=== PATIENT | male | born 1955 | race Caucasian/White ===

== ENCOUNTER → 2022-07-19 14:53 | Outpatient (CLI) | payer MEDICARE, SELFPAY ==
--- NOTE | 2022-07-19 15:19 | MR_ITS ---
PROCEDURE INFORMATION: Exam: MR Head Without and With Contrast Exam date and time: 07/19/2022 3:42 PM Age: 66 years old Clinical indication: Other: Tremors in arm; Additional info: Abn cranial nerve exam TECHNIQUE: Imaging protocol: Magnetic resonance imaging of the head without and with contrast. Contrast material: PROHANCE; Contrast volume: 20 ml; Contrast route: IV; COMPARISON: No relevant prior studies available. FINDINGS: Brain: No acute parenchymal hemorrhage acute infarct or mass lesion. Only seen on the FLAIR coronal (series 8, image 20), there is a 2 mm thick focal subdural hyperintensity without definitive correlate on other sequences. There are scattered T2 hyperintensities in the periventricular and subcortical white matter. The appearance is nonspecific, but most likely represents chronic small vessel disease in a person of this age . Cerebral ventricles: The ventricles, sulci and cisterns are normal in size and configuration. No hydrocephalus or midline structure shift Pituitary gland and sella: Sellar/parasellar are maintained. Bones/joints: Unremarkable. Paranasal sinuses: Normal as visualized. No acute sinusitis. Mastoid air cells: Normal as visualized. No mastoid effusion. Orbital cavities: Bilateral lens implants noted. Orbits are otherwise unremarkable. Vasculature: Flow voids of the major vascular structures are grossly intact. Soft tissues: Unremarkable. Other findings: Motion artifact does moderately limit the sensitivity of this examination. IMPRESSION: 1. Motion degraded exam. 2. Only seen on the FLAIR coronal there is a 2 mm thick subdural hyperintensity without definitive correlate in other sequences likely sequela of prior subdural hematoma/hygroma or infection. Fininding could also be spurios from motion artifact 3. No abnormal parenchymal or meningeal enhancement.
[2022-07-19 15:41] LABS: Basophils # 0.1 K/mm3 (0-0.2); Basophils % 1.1 % (0.1-2.0); Eosinophils # 0.6 K/mm3 (0.0-0.4); Eosinophils % 7.6 % (0.1-12.0); Hematocrit 48.3 % (42.0-52.0); Hemoglobin 15.5 g/dL (14.1-18.0); Lymphocytes % 27.3 % (10-50); Mean Corpuscular HGB Conc 32.2 g/dL (31.8-35.4); Mean Corpuscular Hemoglobin 30.2 pg (27.0-31.2); Mean Corpuscular Volume 93.9 fl (80-94); Mean Platelet Volume 8.2 fl (7.4-10.4); Monocytes # 0.5 K/mm3 (0.1-1.0); Monocytes % 6.7 % (1.7-9.3); Neutrophils # 4.3 K/mm3 (1.8-7.8); Neutrophils % 57.3 % (37.0-80.0); Platelet Count 267 K/mm3 (142-424); Red Blood Count 5.14 M/mm3 (4.60-6.20); Red Cell Distribution Width 13.2 % (11.5-17.5); White Blood Count 7.4 K/mm3 (4.8-10.8)
[2022-07-19 16:08] LABS: Chloride 94 mmol/L (98-107)
[2022-07-19 16:09] LABS: Potassium 4.1 mmoL/L (3.5-5.1); Sodium 140 mmol/L (136-145)
[2022-07-19 16:11] LABS: Alanine Aminotransferase 24 U/L (12-78); Aspartate Amino Transferase 29 U/L (17-59); Blood Urea Nitrogen 12 mg/dl (9-20); Estimated Glomerular Filt Rate 97 ml/min (>60); GFR (African American) 117 ML/MIN (>60)
[2022-07-19 16:12] LABS: Albumin Level 3.8 g/dl (3.5-5.0); Albumin/Globulin Ratio 1.6 (1.1-1.8); Alkaline Phosphatase 104 U/L (38-126); Anion Gap 12.1 mEq/L (5-15); Calcium 9.4 mg/dl (8.4-10.2); Carbon Dioxide 38 mmol/L (22.0-30.0); Globulin 2.4 g/dL (1.3-3.2); Glucose 145 mg/dl (74-100); Total Protein,Serum 6.2 g/dl (6.3-8.2)
[2022-07-19 16:14] LABS: Bilirubin,Total < 0.1 mg/dl (0.2-1.3)
[2022-07-19 17:17] LABS: Thyroid Stimulating Hormone 1.13 uIU/mL (0.465-4.68)
[2022-07-19 17:53] LABS: Vitamin B12 561 pg/mL (239-931)
== END ==
PROVIDERS: PCP Family Medicine; Visit Provider Nurse Practitioner Family
DX: H21.563 Pupillary abnormality, bilateral (principal); H55.89 Other irregular eye movements; J44.9 Chronic obstructive pulmonary disease, unspecified; R03.0 Elevated blood-pressure reading, without diagnosis of hypertension; R25.1 Tremor, unspecified; Z72.0 Tobacco use
CPT/HCPCS: 36415; 70553; 80053; 82607; 82746; 84443; 85025; A9576

== ENCOUNTER → 2022-08-07 12:36 | Outpatient (CLI) | payer MEDICARE, SELFPAY | PROVIDERS: PCP Family Medicine; Visit Provider Nurse Practitioner Family | DX: J44.9 Chronic obstructive pulmonary disease, unspecified (principal); R03.0 Elevated blood-pressure reading, without diagnosis of hypertension; Z72.0 Tobacco use | CPT/HCPCS: 94762 ==

== ENCOUNTER → 2022-08-08 08:21 | Outpatient (CLI) | payer MEDICARE, SELFPAY ==
--- NOTE | 2022-08-08 08:25 | XR_ITS ---
FINAL REPORT CLINICAL HISTORY: copd, wheezing, shortness of breath FINDINGS: TWO-VIEW CHEST Two views of the chest were obtained. The heart size and pulmonary vascularity are within normal limits. The mediastinum is normal. There are changes of emphysema. There is no pneumothorax. The bony thorax is intact. IMPRESSION: Emphysema. No acute process. Reviewed, Interpreted and Dictated by Daniel Castrejon MD Transcribed by Alma Delia Yost Authenticated and [facility]
== END ==
LOC: RAD 08:22
PROVIDERS: PCP Family Medicine; Visit Provider Nurse Practitioner Family
DX: J44.9 Chronic obstructive pulmonary disease, unspecified (principal); R06.02 Shortness of breath; R06.2 Wheezing; R09.02 Hypoxemia; R90.89 Other abnormal findings on diagnostic imaging of central nervous system
CPT/HCPCS: 71046

== ENCOUNTER → 2022-08-11 14:46 | Outpatient (CLI) | payer MEDICARE, SELFPAY | PROVIDERS: PCP Family Medicine; Visit Provider Nurse Practitioner Family | DX: R06.02 Shortness of breath (principal); J44.9 Chronic obstructive pulmonary disease, unspecified; R06.2 Wheezing; R90.89 Other abnormal findings on diagnostic imaging of central nervous system ==

== ENCOUNTER → 2022-08-16 07:46 | Outpatient (CLI) | payer MEDICARE, SELFPAY ==
--- NOTE | 2022-08-16 10:20 | RESP.PFTSS ---
PATIENT UNABLE TO DO PULMONARY FUNCTION TEST. PATIENT ATTEMPTED FVC AND SVC AND COULD NOT MEET CRITERIA TO COMPLETE EACH TEST.
== END ==
PROVIDERS: PCP Family Medicine; Visit Provider Nurse Practitioner Family
DX: R06.02 Shortness of breath (principal); R06.2 Wheezing; R90.89 Other abnormal findings on diagnostic imaging of central nervous system; R09.02 Hypoxemia; J44.9 Chronic obstructive pulmonary disease, unspecified
CPT/HCPCS: 94010; 94618

== ENCOUNTER → 2022-08-23 10:06 | Outpatient (CLI) | payer MEDICARE, SELFPAY ==
[2022-08-28 18:16] LABS: Alpha-1-Antitrypsin 154 mg/dL (101-187)
== END ==
PROVIDERS: PCP Family Medicine; Visit Provider Internal Medicine Pulmonary Disease
DX: J44.9 Chronic obstructive pulmonary disease, unspecified (principal)
CPT/HCPCS: 36415; 82103; 82104

== ENCOUNTER → 2022-08-29 10:19 | Outpatient (CLI) | payer MEDICARE, SELFPAY ==
--- NOTE | 2022-08-29 10:19 | CT_ITS ---
FINAL REPORT TECHNIQUE: Multiple axial CT sections were performed from the foramen magnum to the vertex. Coronal reformatted images were also obtained. Precontrast and postcontrast injection images were obtained. This study was performed with technique to keep radiation doses as low as reasonably achievable, (ALARA). Individualized dose reduction techniques using automated exposure control or adjustment of mA and/or kV according to the patient size were employed. CLINICAL HISTORY: abn brain mri COMPARISON: MRI report dated 07/19/2022 FINDINGS: The ventricles are normal in size. There is no evidence of hemorrhage. No masses are identified. No extra-axial fluid collection is seen. There is mucosal thickening in multiple sinuses. No osseous abnormality is seen on the bone window images. Postcontrast images demonstrate no abnormal enhancement. IMPRESSION: No acute intracranial abnormality. Mucosal thickening in multiple sinuses. Reviewed, Interpreted and Dictated by John Carr III, MD Transcribed by Alma Delia Yost Authenticated and [facility]
[2022-08-29 10:46] LABS: Blood Urea Nitrogen 13 mg/dl (9-20); Estimated Glomerular Filt Rate 97 ml/min (>60); GFR (African American) 117 ML/MIN (>60)
== END ==
LOC: RAD 10:19
PROVIDERS: PCP Family Medicine; Visit Provider Nurse Practitioner Family
DX: H21.563 Pupillary abnormality, bilateral (principal); H55.89 Other irregular eye movements; R90.89 Other abnormal findings on diagnostic imaging of central nervous system
CPT/HCPCS: 36415; 70470; 82565; 84520; Q9967

== ENCOUNTER → 2022-10-19 14:17 | Outpatient (CLI) | payer MEDICARE, SELFPAY ==
--- NOTE | 2022-10-19 14:17 | CT_ITS ---
FINAL REPORT TECHNIQUE: Axial images were obtained from the lung apex to the mid abdomen by computed tomography. This study was performed with techniques to keep radiation doses as low as reasonably achievable (ALARA). Individualized dose reduction techniques using automated exposure control or adjustment of mA and/or kV according to the patient's size were employed. CLINICAL HISTORY: lung cancer screening current smoker 1/2ppd x25 years FINDINGS: CHEST CT LOW DOSE CTDI vol (mGy): 2.90 DLP (mGy-cm): 101.86 There is no axillary adenopathy. There are a few small scattered mediastinal lymph nodes. The heart is normal in size. There is no pericardial or pleural effusion. Lung window images demonstrate a nodular infiltrate at the right base and posterior right middle lobe. The left lung is clear. Limited images of the upper abdomen are unremarkable. IMPRESSION: Probable acute pneumonia in the right lower lobe. Lung RADS category 0. Recommend 1-3 month follow-up low-dose chest CT. Reviewed, Interpreted and Dictated by Main Rincon MD Transcribed by Latasha Helms Authenticated and [facility]
== END ==
PROVIDERS: PCP Family Medicine; Visit Provider Internal Medicine Pulmonary Disease
DX: Z87.891 Personal history of nicotine dependence; Z12.2 Encounter for screening for malignant neoplasm of respiratory organs
CPT/HCPCS: 71271

== ENCOUNTER → 2022-10-30 09:37 | Outpatient (CLI) | payer MEDICARE, SELFPAY | PROVIDERS: PCP Family Medicine; Visit Provider Internal Medicine Pulmonary Disease | DX: R06.09 Other forms of dyspnea (principal); R05.1 Acute cough; R06.2 Wheezing; R09.89 Other specified symptoms and signs involving the circulatory and respiratory systems | CPT/HCPCS: 87070; 87116; 87186; 87205; 87206 ==

== ENCOUNTER → 2022-11-21 20:02 | Outpatient (CLI) | payer MEDICARE, SELFPAY | PROVIDERS: PCP Family Medicine; Visit Provider Nurse Practitioner Family | DX: G47.33 Obstructive sleep apnea (adult) (pediatric) (principal); R09.02 Hypoxemia; J44.9 Chronic obstructive pulmonary disease, unspecified | CPT/HCPCS: 95810 ==

== ENCOUNTER → 2022-12-06 12:27 | Outpatient (CLI) | payer MEDICARE, SELFPAY ==
--- NOTE | 2022-12-06 12:27 | FL_ITS ---
FINAL REPORT CLINICAL HISTORY: dysphagia ft: 1:55 FINDINGS: MODIFIED BARIUM SWALLOW History: Dysphagia. FINDINGS: Fluoroscopy was provided for the speech pathologist to evaluate the swallowing mechanism. The patient was given several different consistencies of barium while the swallow was visualized fluoroscopically. The report of the speech pathologist should be consulted prior to making dietary decisions. FLUOROSCOPY TIME: 1 minute 55 seconds. IMPRESSION: Modified barium swallow under fluoroscopic guidance. Please see the report of the speech pathologist for more detail. Films reviewed , interpreted and dictated by Dr. Neva Lynn. Transcribed by Brenton Chao PA-C. Reviewed, Interpreted and Dictated by Neva Lynn MD Transcribed by BERNA Botello Authenticated and [facility]
--- NOTE | 2022-12-06 12:27 | CT_ITS ---
FINAL REPORT TECHNIQUE: Thin section axial images were obtained from the lung apices through the upper abdomen without contrast. This study was performed with techniques to keep radiation doses as low as reasonably achievable (ALARA). Individualized dose reduction techniques using automated exposure control or adjustment of mA and/or kV according to the patient's size were employed. CLINICAL HISTORY: RLLpneumonia 8-week follow-up, November 2022 COMPARISON: 10/19/2022 FINDINGS: There is no mediastinal, hilar, or axillary lymphadenopathy. There is no pleural or pericardial effusion. There are changes of emphysema. There has been interval improvement in the right middle lobe and right lower lobe bronchopneumonia however not resolved. The lingular reticular nodular opacities have also improved but not completely resolved. Limited images of the upper abdomen reveal gallstones. There is no acute osseous abnormality. IMPRESSION: Improved but not resolved right greater the left bronchopneumonia. Recommend additional follow-up in 3 months to ensure stability. Reviewed, Interpreted and Dictated by Neva Lynn MD Transcribed by Latasha Helms Authenticated and [facility]
--- NOTE | 2022-12-06 14:35 | HMH.SLMBS2 ---
Speech & Language Evaluation Speech/Language Mod Barium Swallow Start: 12/06/22 13:25 Freq: once Status: Complete Protocol: Document 12/06/22 13:25 SVETA (Rec: 12/06/22 14:35 SVETA [id number]) General Information General Current Food Consistency Regular,Thin Liquids Dentition Poor Dentition Oxygen Status Room Air Facial Symmetry Symmetrical Patient Orientation Person,Place,Time,Situation Ability to Follow Directions Excellent Communication Ability No Impairment Voice Voice Quality Normal Voice Pitch Normal Voice Loudness Normal MBS Recommendations Diet Dietary Recommendations Regular,Thin Liquids Treatment/Strategies Strategy/Precaution Recommend Sitting Upright (90 deg),Small Bites and Sips,Alternate Liquids/Solids Referrals/Other Recommended Referrals GI Consult Mod Barium Swallow Impressions Summary and Impressions Oral Phase Impression Minimal Impairment Oral Phase Summary Minimal oral phase impairment. Premature spillage of thin liquids to the valleculae 2' decreased back of tongue coordination. No significant oral residue noted. Adequate mastication of solids and AP transit. Pharyngeal Phase Impression Minimal Impairment Pharyngeal Phase Summary Minimal pharyngeal phase impairment. Mild vallecular residue noted, which pt was able to clear with a cued swallow. No aspiration or penetration was noted on the study. Speech/Language MBS Assessment/Goals/Plan Assessment Date of Evaluation: 12/06/22 Evaluation Type Initial Certification Assessment/Problems Aspiration and nodule per MD order. Does Patient Qualify for Service No Qualify/Failure Comment Based on the results of the MBSS, no further skilled ST services are warranted at this time. Recommendations PHYSICIAN CERTIFICATION: The specified therapy services are required, authorized, and reviewed every 30 days. Diet Recommendations Normal Liquid Type Recommendations Normal/Thin SL Swallow Guidelines Alt bite w/sip thru meal, Reflux precautions Dysphagia Swallow Precautions/Strategies Sitting Upright (90 deg),Small
== END ==
LOC: RAD 12:27
PROVIDERS: PCP Family Medicine; Visit Provider Internal Medicine Pulmonary Disease
DX: J18.9 Pneumonia, unspecified organism (principal); R91.8 Other nonspecific abnormal finding of lung field
CPT/HCPCS: 70371; 71250; 92611

== ENCOUNTER 2023-03-20 06:13 | Day surgery (SDC) | payer MEDICARE, SELFPAY ==
--- NOTE | 2023-01-01 11:02 | SUR.PREOP ---
Pre op call made, Pt unaware scheduled for colonoscopy tomorrow and didn't have transportation. Wants to reschedule. [place] notified
[2023-03-16 17:13] VITALS: BMI 31.4
[2023-03-20 06:31] VITALS: BP 161/93; PULSE 76; RESP 18; TEMP 36.3; O2SAT 95
--- NOTE | 2023-03-20 06:57 | P.PN_ITS ---
[facility] Disclaimer: The information contained in this section may have been updated after the patient was seen, as this information can be updated by other users. Medical History Abnormal screening CT of chest Chronic hypoxemic respiratory failure COPD (chronic obstructive pulmonary disease) COPD mixed type CPAP (continuous positive airway pressure) dependence Dyspnea on exertion Dyspnea on exertion Encounter for screening for malignant neoplasm of lung in current smoker with 30 pack year history or greater History of smoking 30 or more pack years Pneumonia Screening for lung cancer Sleep apnea Surgical History History of appendectomy Previous back surgery Family History Other No significant family history Social History Smoking Status: Former smoker alcohol intake: current substance use type: denies use current occupational status: disabled Travel in the last 8 weeks: None housing: apartment marital status: legally [facility] Anesthesia Checklist Patient Identification Patient Identification: Arm Band and Family Structural Data Admitted From: Home Planned Operative Procedure/s: Colonoscopy Consent for Planned Operative Procedure(s) Verified: Yes Verified Documents: Surgical Consent and History and Physical NPO Status Verified Time NPO: 00:00 Additional verifications Patient : No Anesthesia Reactions: No Hx Blood Transfusions: No Blood Transfusion Reaction: No Cephalosporin Allergy: No Previous Colonoscopy: Yes Airway Assessment C-Spine Mobility Assessed: Yes TMJ Mobility Assessed: Yes Dentition: Poor Dentition Neurological Assessment Level of Consciousness: Awake, Alert, Appropriate and Follows Commands Hx Seizures: No Numbness or tingling in extremities: No Anesthesia Plan Anesthesia Risk discussed: Yes ASA Class: II Anesthesia Type: MAC Preoperative Comments Pre-Operative Comments: Transient Hypertension. COPD.
[2023-03-20 07:23] VITALS: O2SAT 95
--- NOTE | 2023-03-20 08:08 | HMH.SCOPE ---
Procedure: Date: 03/20/23 Patient Date of :: 1955 Procedure Performed:: Colonoscopy with polypectomy Indications:: Screening Performing Provider:: Shashank Mccoy MD Referring Provider:: . Sedation:: Monitored anesthesia care Procedure:: After informed consent was obtained the patient was taken to the endoscopy suite. Sedation ensued after the patient was transferred to the left lateral decubitus position. Pulse, blood pressure, and oxygen saturation were monitored throughout the procedure. Digital rectal exam revealed no significant abnormality. The colonoscope was placed in position. The entire colon was evaluated. The colonoscope was carefully removed and the patient was transferred to recovery in stable condition. Please see findings and specimens below for detail. Findings:: Bowel preparation moderate Profound lack of relaxation/spasticity Multiple hemorrhoidal tags Multiple complex polyps (see specimens) Specimens:: Sessile cecal polyp (cold snare) Right colon polyp (cold snare) Large complex pedunculated polyp at 30 cm (hot snare) Pedunculated lobulated polyp at 35 cm (hot snare) Recommendations:: Timing of repeat colonoscopy is pending pathology but likely be around 6-12 months secondary to size/nature/number of polyps, moderate bowel preparation, and spasticity/lack of relaxation. Complications:: No immediate Estimated blood obtained (mL): 1 Colonoscopy Component Colonoscopy Component Was a colonoscopy performed during today's procedure?: Yes Recommended follow up colonoscopy of at least 10 years?: No If no, follow up colonoscopy recommended in ___ years?: 6-12 months Reason for not recommending >/= 10 yr follow-up interval?: Size and number of polyps; limited bowel preparation
[2023-03-20 08:17] VITALS: BP 110/70; PULSE 104; RESP 20; TEMP 36.4; O2SAT 92
[2023-03-20 08:27] VITALS: BP 142/77; PULSE 102; RESP 20; O2SAT 92
[2023-03-20 08:37] VITALS: BP 136/85; PULSE 97; RESP 18; O2SAT 92
[2023-03-20 08:47] VITALS: BP 121/98; PULSE 94; RESP 18; O2SAT 93
== END 2023-03-20 08:47 | disposition home or self-care (01) ==
PROVIDERS: PCP Family Medicine; Visit Provider Surgery
PROC: 0DJD8ZZ Inspection of Lower Intestinal Tract, Via Natural or Artificial Opening Endoscopic (ICD-10-PCS; principal; 2023-03-20 07:30)
DX: Z12.11 Encounter for screening for malignant neoplasm of colon (principal); D12.0 Benign neoplasm of cecum; D12.2 Benign neoplasm of ascending colon; D12.6 Benign neoplasm of colon, unspecified
CPT/HCPCS: 45385; 88305; J2704

== ENCOUNTER 2024-10-31 10:58 | Inpatient (IN) | payer MEDICARE, SELFPAY ==
[2024-10-31] VITALS (32 sets, daily range): BP systolic 99–145; BP diastolic 72–93; PULSE 71–171; RESP 14–49; TEMP 36.9–37.2; O2SAT 85–96; BMI 31.4
--- NOTE | 2024-10-31 11:09 | ECG_ITS ---
APPROVED REPORT Exam: Resting ECG HR:110 bpm ECG Measurements Heart Rate 110 AXES QRSd 170 QRS 31 QT 377 T 92 QTc 442 Conclusion UNCERTAIN IRREGULAR RHYTHM LEFT BUNDLE BRANCH BLOCK [120+ ms QRS DURATION, 80+ ms Q/S IN V1/V2, 85+ ms R IN I/aVL/V5/V6] CRITICAL TEST RESULT UNCONFIRMED REPORT Electronically signed by : NICOLAAS MEDINA, 11/01/2024 06:26:58
[2024-10-31 11:16] LABS: Coronavirus 19, PCR Not Detected (NotDetected); Influenza A, PCR Not Detected (NotDetected); Influenza B, PCR Not Detected (NotDetected)
--- NOTE | 2024-10-31 11:17 | PC.NURSE ---
RESPIRATORY NOTIFIED OF BI-PAP
[2024-10-31] MEDS: LORazepam 2MG/ML VIAL 1 MG IV (11:24)
[2024-10-31] MEDS: MAGNESIUM SULFATE IN WATER 2 GM/50 ML PIGGYBACK IV (11:24)
[2024-10-31] MEDS: DEXAMETHASONE 4MG/ML 1ML VIAL 10 MG IV (11:24)
[2024-10-31] MEDS: IPRATROPIUM/ALBUTEROL 3 ML NEB 9 ML IH (11:25)
--- NOTE | 2024-10-31 11:25 | PC.NURSE ---
RESPIRATORY AT BEDSIDE FOR BI-PAP
[2024-10-31 11:26] LABS: Basophils % 0.2 % (0.1-2.0); Eosinophils % 0.2 % (0.1-12.0); Hematocrit 42.9 % (42.0-52.0); Hemoglobin 13.4 g/dL (14.1-18.0); Lymphocytes # 1.7 K/mm3 (0.7-4.5); Lymphocytes % 10.5 % (10-50); Mean Corpuscular HGB Conc 31.2 g/dL (31.8-35.4); Mean Corpuscular Hemoglobin 30.5 pg (27.0-31.2); Mean Corpuscular Volume 97.7 fl (80-94); Mean Platelet Volume 9.7 fl (7.4-10.4); Monocytes # 1.4 K/mm3 (0.1-1.0); Monocytes % 8.8 % (1.7-9.3); Neutrophils # 12.5 K/mm3 (1.8-7.8); Neutrophils % 76.3 % (37.0-80.0); Platelet Count 396 K/mm3 (142-424); Red Blood Count 4.39 M/mm3 (4.60-6.20); White Blood Count 16.4 K/mm3 (4.8-10.8)
[2024-10-31 11:30] LABS: VBG Base Excess 14.1 mmol/L (-2.4-2.3); VBG HCO3 40.1 mmol/L (23-30); VBG Oxygen Saturation 64.3 % (50-70); VBG PCO2 78.3 mmol/L (35-51); VBG PH 7.33 mmol/L (7.31-7.41); VBG PO2 34.6 mmol/L (28-40); VBG Total CO2 42.5 mmol/L (23-27)
[2024-10-31 11:32] LABS: Lactate Venous 2.1 mmol/L (0.4-2.0)
[2024-10-31 11:34] LABS: Chloride 91 mmol/L (98-107); MANUAL DIFFERENTIAL MANUAL DIFFERENTIAL (MANUAL DIFF)
[2024-10-31 11:35] LABS: Albumin Level 3.9 g/dl (3.5-5.0); Sodium 140 mmol/L (136-145)
[2024-10-31 11:37] LABS: Blood Urea Nitrogen 26 mg/dl (9-20); Creatinine Clearance Estimated 93 mL/min (50-200); Estimated Glomerular Filt Rate 67 ml/min (>60); GFR (African American) 81 ML/MIN (>60)
[2024-10-31 11:38] LABS: Alanine Aminotransferase 35 U/L (12-78); Albumin/Globulin Ratio 0.9 (1.1-1.8); Alkaline Phosphatase 133 U/L (38-126); Aspartate Amino Transferase 45 U/L (17-59); Bilirubin,Total 0.5 mg/dl (0.2-1.3); Calcium 8.7 mg/dl (8.4-10.2); Globulin 4.4 g/dL (1.3-3.2); Glucose 190 mg/dl (74-100); Total Protein,Serum 8.3 g/dl (6.3-8.2)
[2024-10-31] MEDS: ALBUTEROL 0.083% 2.5 MG/3 ML NEB 20 MG IH (11:43)
--- NOTE | 2024-10-31 11:47 | ED_ITS ---
Discharge Plan Disposition Patient Disposition: Admitted Prescriptions Prescriptions: No Action atorvastatin 40 mg tablet 40 mg PO DAILY diclofenac sodium 75 mg tablet,delayed release (DR/EC) 75 mg PO BID furosemide 20 mg tablet 20 mg PO BID potassium chloride 10 mEq tablet,ER particles/crystals 10 meq PO TID albuterol sulfate 90 mcg/actuation HFA aerosol inhaler 2 inh inhalation QIDP PRN (Reason: shortness of breath or wheezing) Referrals Follow up/Referrals: Deepti Curiel MD [Primary Care Provider] - See instructions Clinical Impressions Clinical Impression: Acute exacerbation of chronic obstructive pulmonary disease, Acute hypoxemic respiratory failure, Elevated troponin, Right lower lobe pneumonia Print Language Print Language: Greenlandic Discharge ED Provider: Ahsan Poon HPI General Chief Complaint: Shortness of Breath/Dyspnea Stated Complaint: soa o2 level low Time Seen by Provider: 10/31/24 11:16 Mode of Arrival: Wheelchair Source of Information: Patient Limitations: No Limitations Description of Symptoms (Recalled from ER Triage Doc. by RN): Patient states he has been short of breath for a couple of days. Wears oxygen at home and has been continuously sating in the mid to low 80s. History of Present Illness HPI narrative: Please note that above description of symptoms, in this electronic medical record under categorization of recalled from ER triage doctor by RN are reflective of an initial nursing assessment, however, is not reflective of my full history and physical exam that was personally taken and clarified. Consequentially, this preceding description of symptoms, which may include the patient's categorized chief complaint in the EMR, do not reflect my personal clinical impression, and the ultimate description of history of present illness and patient stated complaints should be deferred to this section of the note. Unless stated otherwise or congruent with this section of the note, additional signs, symptoms, or incongruence should be interpreted as inaccurate with my clinical impression. Related Data Home Medications ?Medication ?Instructions ?Recorded ?Confirmed albuterol sulfate 90 mcg/actuation 2 inh inhalation QIDP PRN 10/31/24 10/31/24 aerosol inhaler shortness of breath or wheezing atorvastatin 40 mg tablet 40 mg PO DAILY 10/31/24 10/31/24 diclofenac sodium 75 mg 75 mg PO BID 10/31/24 10/31/24 tablet,delayed release furosemide 20 mg tablet 20 mg PO BID 10/31/24 10/31/24 potassium chloride 10 mEq 10 meq PO TID 10/31/24 10/31/24 tablet,extended release(part/cryst) Allergies Allergy/AdvReac Type Severity Reaction Status Date / Time No Known Allergies Allergy Verified 03/20/23 06:30 [facility] Disclaimer: The information contained in this section may have been updated after the patient was seen, as this information can be updated by other users. Medical History (Updated 10/31/24 @ 13:30 by Ahsan Poon MD) CPAP (continuous positive airway pressure) dependence Sleep apnea Chronic hypoxemic respiratory failure Dyspnea on exertion Pneumonia Abnormal screening CT of chest Screening for lung cancer Encounter for screening for malignant neoplasm of lung in current smoker with 30 pack year history or greater Dyspnea on exertion COPD mixed type History of smoking 30 or more pack years COPD (chronic obstructive pulmonary disease) Surgical History History of appendectomy Previous back surgery Family History Other No significant family history Social History Smoking Status: Former smoker alcohol intake: current alcohol intake frequency: holidays/special occasions only substance use type: denies use current occupational status: disabled Travel in the last 8 weeks: None housing: apartment marital status: legally Have you lived/traveled outside [place] in past 30 days?: No Contact w/someone who lives/traveled outside US past 30 days?: No Exposure to someone with infectious disease in past 14 days?: No Do you have a fever (greater than 100.4 F or 38 C)?: No Have you tested positive for COVID-19: No Exposed to someone with COVID-19 in past 14 days?: No Do you have a sore throat?: No Do you have a cough?: No Do you have any weakness?: No Do you have any diarrhea?: No Are you experiencing any unusual bleeding?: No Do you have any muscle aches/pain?: No Do you have any abdominal pain?: No Are you experiencing loss of taste or smell?: No Other Medical History Have you received the Pneumonia Vaccine: Yes ROS Obtained: Yes All systems reviewed & no additional complaints except as documented Physical Exam General General appearance: alert Neck Neck exam: Present trachea midline Chest Chest inspection: Present normal inspection and symmetric chest wall rise Respiratory Respiratory exam: Present respiratory distress, wheezes, accessory muscle use, prolonged expiratory phase and other (Tachypneic); Absent normal lung sounds bilaterally or stridor Cardiovascular Cardiovascular exam: Present normal rhythm, tachycardia and other (Pulses equal and symmetric in upper and lower extremities) Extremities Exam Extremities exam: Absent edema Neurological Exam Neurological exam: Present alert, oriented X3 and CN II-XII intact Skin Skin exam: Present warm and dry; Absent cyanosis, diaphoresis or pallor HEART Score HEART Score HEART Score assessment performed?: Yes History (anamnesis): Slightly suspicious ECG: Non-specific disturbance Age: >65 years Risk factors: 3 or more risk factors Troponin: 1-3x normal limit HEART Score: 6 Critical Care Critical Care Time Critical Care Time: Yes (respiratory) Attestation: On 10/31/24, the high probability of a clinically significant, sudden or life threatening deterioration of the following system(s) required my full and direct attention, intervention and personal management. The time I documented below is in addition to time spent performing reported procedures but includes the following listed in this critical care notation. Total Time Total Critical Care Time: 75 Medical Decision Making Medical Records Medical records reviewed: Yes I reviewed the patient's medical records. Dmitri Inquiry Pt receiving controlled substance: No Dmitri was queried for this patient: No Vital Signs Vital Signs: 10/31/24 10:59 10/31/24 11:08 10/31/24 11:30 Temperature 98.4 F Temperature Source Oral Pulse Rate 71 113 H Pulse Rate [Radial] 110 H Respiratory Rate 24 25 H Blood Pressure 135/79 144/93 H Blood Pressure [Right Arm] 135/79 Blood Pressure Mean [Right Arm] 97 Blood Pressure Source [Right Arm] Automatic Cuff Blood Pressure Position [Right Arm] Sitting 02 Sat by Pulse Oximetry 85 L 93 L 93 L Oxygen Delivery Method Room Air BiPAP BiPAP Oxygen Flow Rate (LPM) Fraction of Inspired Oxygen 10/31/24 11:44 10/31/24 11:46 10/31/24 12:00 Temperature Temperature Source Pulse Rate 101 H 101 H Pulse Rate [Radial] Respiratory Rate 24 Blood Pressure 124/78 Blood Pressure [Right Arm] Blood Pressure Mean [Right Arm] Blood Pressure Source [Right Arm] Blood Pressure Position [Right Arm] 02 Sat by Pulse Oximetry 93 L Oxygen Delivery Method BiPAP Oxygen Flow Rate (LPM) Fraction of Inspired Oxygen 50 10/31/24 12:30 10/31/24 13:00 10/31/24 13:08 Temperature Temperature Source Pulse Rate 100 H 99 H Pulse Rate [Radial] Respiratory Rate 21 24 Blood Pressure 124/77 119/72 Blood Pressure [Right Arm] Blood Pressure Mean [Right Arm] Blood Pressure Source [Right Arm] Blood Pressure Position [Right Arm] 02 Sat by Pulse Oximetry 96 92 L 94 L Oxygen Delivery Method Vapotherm Vapotherm Vapotherm Oxygen Flow Rate (LPM) 35 Fraction of Inspired Oxygen 50 10/31/24 13:27 10/31/24 13:30 Temperature Temperature Source Pulse Rate 105 H 101 H Pulse Rate [Radial] Respiratory Rate 24 49 H Blood Pressure 131/74 130/75 Blood Pressure [Right Arm] Blood Pressure Mean [Right Arm] Blood Pressure Source [Right Arm] Blood Pressure Position [Right Arm] 02 Sat by Pulse Oximetry 92 L 92 L Oxygen Delivery Method Vapotherm Vapotherm Oxygen Flow Rate (LPM) Fraction of Inspired Oxygen Lab Data Labs: Lab Results 10/31/24 11:13: SARS-CoV-2 (PCR) Not detected, Influenza A Untype (PCR) Not detected, Influenza Type B (PCR) Not detected 10/31/24 11:16: VBG pH 7.33, VBG pCO2 78.3 H, VBG pO2 34.6, VBG HCO3 40.1 H, VBG Total CO2 42.5 H, VBG O2 Saturation 64.3, VBG Base Excess 14.1 H, VBG Lactic Acid 2.1 H 10/31/24 11:18: WBC 16.4 H, RBC 4.39 L, Hgb 13.4 L, Hct 42.9, MCV 97.7 H, MCH 30.5, MCHC 31.2 L, RDW 13.0, Plt Count 396, MPV 9.7, Neut % (Auto) 76.3, Lymph % (Auto) 10.5, [place] % (Auto) 8.8, Eos % (Auto) 0.2, Baso % (Auto) 0.2, Neut # (Auto) 12.5 H, Lymph # (Auto) 1.7, [place] # (Auto) 1.4 H, Eos # (Auto) 0.0, Baso # (Auto) 0.0, Total Counted 100, Neutrophils % (Manual) 85 H, Lymphocytes % (Manual) 12, Monocytes % (Manual) 2, Eosinophils % (Manual) 1, Platelet Estimate Normal, RBC Morphology Normal, Sodium 140, Potassium 4.0, Chloride 91 L, Carbon Dioxide 39 H, Anion Gap 14.0, BUN 26 H, Creatinine 1.10, Estimated Creat Clear 93, Estimated GFR 67, Est GFR ( Amer) 81, Glucose 190 H, Calcium 8.7, Total Bilirubin 0.5, AST 45, ALT 35, Alkaline Phosphatase 133 H, Troponin I 0.04 H, Total Protein 8.3 H D, Albumin 3.9, Globulin 4.4 H, Albumin/Globulin Ratio 0.9 L, HCV Ab DARELL w/Rflx PCR Qn Negative, HIV Ag/Ab Combo Qual Negative 10/31/24 11:18 10/31/24 11:18 Response Orders (Tests/Meds): ED MEDICATIONS Generic Name Dose Route Start Last Admin Trade Name Freq PRN Reason Stop Dose Admin Albuterol/Ipratropium 3 ml 10/31/24 14:00 Ipratropium/Albuterol 3 Ml [facility] 11/30/24 13:59 Q4RT JAZZMINE Enoxaparin Sodium 100 mg 10/31/24 13:30 10/31/24 13:36 Enoxaparin 100mg/Ml Syringe 1 mg/kg (100 mg) 11/30/24 13:29 100 mg SUBCUT Administration Q12H JAZZMINE Sodium Chloride 10 ml 10/31/24 11:16 Sodium Chloride 0.9% 10ml Vial IV 11/30/24 11:15 NEEDED PRN to Dilute Lorazepam inj Discontinued Medications Generic Name Dose Route Start Last Admin Trade Name Freq PRN Reason Stop Dose Admin Albuterol Sulfate 20 mg 10/31/24 11:40 10/31/24 11:43 Albuterol 0.083% 2.5 Mg/3 Ml [facility] 10/31/24 11:41 20 mg ONCE ONE Administration Albuterol/Ipratropium 9 ml 10/31/24 11:16 10/31/24 11:25 Ipratropium/Albuterol 3 Ml [facility] 10/31/24 11:17 9 ml ONCE ONE Administration Dexamethasone Sodium Phosphate 10 mg 10/31/24 11:16 10/31/24 11:24 Dexamethasone 4mg/Ml 1ml Vial IV 10/31/24 11:17 10 mg ONCE ONE Administration Magnesium Sulfate 2 gm in 50 mls @ 50 mls/hr 10/31/24 11:16 10/31/24 11:24 Magnesium Sulfate 2gm/50ml Premix IV 10/31/24 12:15 50 mls/hr ONCE ONE Administration Ceftriaxone Sodium 2 gm/ 100 mls @ 200 mls/hr 10/31/24 12:07 10/31/24 12:26 Sodium Chloride IV 10/31/24 12:36 200 mls/hr ONCE ONE Administration Azithromycin 500 mg/ Sodium 250 mls @ 250 mls/hr 10/31/24 13:24 10/31/24 13:37 Chloride IV 10/31/24 13:25 250 mls/hr ONCE ONE Administration Iopamidol 70 ml 10/31/24 13:18 10/31/24 13:19 Iopamidol-370 (76%);100ml Bottle IV 10/31/24 13:19 70 ml ONCE ONE Administration Lorazepam 1 mg 10/31/24 11:16 10/31/24 11:24 Lorazepam 2mg/Ml Vial IV 10/31/24 11:17 1 mg ONCE ONE Administration Sodium Chloride 10 ml 10/31/24 13:18 10/31/24 13:18 Sodium Chloride 0.9% 10ml Syr (Rad Only) IV 10/31/24 13:19 10 ml ONCE ONE Administration Sodium Chloride 50 ml 10/31/24 13:18 10/31/24 13:18 0.9 % Sodium Chloride 50 Ml Vial IV 10/31/24 13:19 50 ml ONCE ONE Administration ORDERS Category Date Time Status CT angio chest PE protocol Stat Cat Scan 10/31/24 12:28 Taken CXR --portable [XR chest portable] Stat Exams 10/31/24 12:08 Taken POCUS Point of Care (ER Only) Stat Exams 10/31/24 12:28 Completed CBC w/Auto Diff [Complete Blood Count Auto Diff] Stat Lab 10/31/24 11:18 Completed CMP [Comprehensive Metabolic Panel] Stat Lab 10/31/24 11:18 Completed Complete Blood Count Auto Diff AMLAB Lab 11/01/24 06:00 Ordered Comprehensive Metabolic Panel AMLAB Lab 11/01/24 06:00 Ordered HIV Combo Stat Lab 10/31/24 11:18 Completed Hepatitis C Ab Qual. W/ RFX Stat Lab 10/31/24 11:18 Completed Magnesium AMLAB Lab 11/01/24 06:00 Ordered Rapid PCR Covid and Flu A/B Stat Lab 10/31/24 11:13 Completed Trop I [Troponin I] Stat Lab 10/31/24 11:18 Completed Troponin I Q3H Lab 10/31/24 14:30 Ordered Troponin I Q3H Lab 10/31/24 17:30 Ordered Blood Culture Stat Micro 10/31/24 11:55 Received VBG [Venous Blood Gas] Stat RT 10/31/24 11:16 Completed MDM Narrative Medical Decision Narrative: 69-year-old male history of hypertension, hyperlipidemia, COPD on 2 L nasal cannula at home presenting with shortness of breath. This has been getting worse for 4 days at this point. Cough is now productive of yellow sputum. Also states that he has been having fevers and chills. No other associated symptoms including chest pain, nausea, vomiting, syncope, rash, neurologic deficits, etc. History was obtained via conversation with patient. On arrival, patient hemodynamically stable, alert, oriented x4, appropriate, GCS 15, moving all extremities spontaneously, pupils equal and reactive to light. Full physical exam performed and significant for clinically ill appearing patient in severe respiratory distress. Breathing 50-60 times per minute and shallow breaths with mildly prolonged expiratory phase as compared to inspiration. Minimal breath sounds bilaterally. No focal breath sounds, just globally significantly diminished. No lower extremity edema, patient mentating without issue. Differential includes COPD exacerbation, bronchitis, pneumonia, PE, pneumothorax, ACS, VA, CHF, among others. Patient was given DuoNebs, Decadron, IV magnesium for symptomatic management and correction of underlying abnormalities. Patient also placed on BiPAP during my initial evaluation given severe respiratory distress and concern for severe COPD exacerbation Patient placed on continuous cardiac monitoring and continuous pulse ox with initial blood pressure 135/79, heart rate 110, saturation 85% on 2 L nasal cannula, 92% on 4 L nasal cannula. Independent interpretation of EKG shows sinus rhythm with what appears to the left branch block morphology with no acute ischemic change. SC interval read about 200 ms. QRS 170, QTc 442. Leftward leaning axis.. Workup independently interpreted and significant for leukocytosis 16,000 with neutrophilia and elevated monocytes. VBG consistent with COPD pH normal at 7.33, but CO2 elevated at 78, bicarb elevated at 40 and lactate 2.1. Repeat evaluation shortly thereafter, patient not tolerating BiPAP. Ativan given. Patient tolerated about an hour of BiPAP. On reevaluation, Ativan wearing off, patient ripped the mask off, refusing to wear it again. High flow nasal cannula ordered because patient's lungs are still incredibly quiet. Rest of workup independently interpreted, patient's troponin elevated 0.04. On independent to rotation of patient's chest x-ray, concern for large right sided pneumonia. CT PE was also ordered in the setting of persistent tachycardia and continued respiratory distress and surgery PE versus pneumothorax or other underlying pathology. Patient does have large right middle and right lower lobe pneumonias. Concern for right subsegmental pulmonary artery pulmonary embolus, so 1 mg/kg of Lovenox was administered. See radiology read for full review of final results. Score 6. Patient also given 2 g of ceftriaxone and 500 mg azithromycin IV for new cough and newly productive cough in the setting of severe COPD exacerbation. On reevaluation, patient still tachypneic, but respiratory rate proved into the mid 20s. Oxygen saturation upper 80s on Vapotherm. Persistently tachycardic 100 205 bpm, but normotensive 130s over 70s. Tissue reperfusion performed 2 hours after arrival. Patient still mentating, vital signs are improving and capillary refill intact. Given patient presentation, workup, history, this most likely represents COPD and acute hypoxemic respiratory failure in the setting of pneumonia. Because patient high risk for clinical decompensation, deemed appropriate for inpatient admission. Results were relayed to patient who voiced understanding and patient was agreeable to inpatient admission and management. Patient was admitted to the hospital for further definitive management. Jira Developer disclaimer Much of this encounter note is an electronic manager secondary spoken language to printed text. Electronic manager secondary of the spoken language may permit errors. Although I have reviewed the note, some errors may still exist.
[2024-10-31 11:49] LABS: Carbon Dioxide 39 mmol/L (22.0-30.0); Troponin I 0.04 ng/ml (0.00-0.034)
--- NOTE | 2024-10-31 12:08 | XR_ITS ---
FINAL REPORT CLINICAL HISTORY: copd exacerbation seevere COMPARISON: 08/08/2022 FINDINGS: A portable view of the chest was obtained. Cardiac and mediastinal silhouettes are within normal limits. There are new bilateral interstitial opacities with new multifocal right basilar airspace disease. Findings are most consistent with pneumonia. There may be a small right pleural effusion. There is no pneumothorax. IMPRESSION: New bilateral pneumonia and possible small right pleural effusion. Reviewed, Interpreted and Dictated by Neva Lynn MD Transcribed by Franca Magallanes Authenticated and [facility]
--- NOTE | 2024-10-31 12:11 | PC.NURSE ---
PT REFUSING TO WEAR BI-PAP, DR LOVE AT BEDSIDE TO UPDATE PT AND FAMILY
[2024-10-31 12:16] LABS: Eosinophils % 1 % (0-3); Lymphocytes % 12 % (10-50); Monocytes % 2 % (2-9); Neutrophils % 85 % (42-76); Total Cells Counted 100
--- NOTE | 2024-10-31 12:16 | PC.NURSE ---
RESPIRATORY NOTIFIED OF NEW ORDER FOR VAPO-THERM
[2024-10-31 12:17] LABS: Platelet Estimate Normal; RBC Morphology Normal
--- NOTE | 2024-10-31 12:23 | PC.NURSE ---
RESPIRATORY AT BS PLACED ON VAPOTHERM AT THIS TIME
--- NOTE | 2024-10-31 12:24 | PC.NURSE ---
RESPIRATORY AT BEDSIDE PLACING PT ON VAPO-THERM
[2024-10-31] MEDS: CEFTRIAXONE SODIUM 2 GM in 0.9 % SODIUM CHLORIDE 100 ML IV (12:26)
--- NOTE | 2024-10-31 12:28 | CT_ITS ---
FINAL REPORT TECHNIQUE: Axial imaging of the chest is obtained after the administration of contrast. 3-D MIP reformatted images were also obtained and reviewed per PE protocol. CLINICAL HISTORY: rule out PE, severe resp distress persistent tachy COMPARISON: CT chest 12/06/2022 FINDINGS: The pulmonary arteries are well filled. There is no evidence of pulmonary embolus. There is no aortic dissection. Heart size is normal. There are multiple mildly prominent mediastinal lymph nodes which have increased in size and number compared to the prior study. An AP window node measures 16 mm and was 11 mm. Subcarinal lymphadenopathy measures 31 mm and was 20 mm. There is qmwtg-[id number]-left hilar lymphadenopathy.. There are new bilateral reticulonodular opacities, [id number]-left, and new ground-glass airspace disease in the right middle lobe and lower lobe. Findings are most consistent with bilateral pneumonia. There is a trace right pleural effusion with no left pleural effusion. No pericardial effusion is seen. Limited evaluation of the upper abdomen is without acute abnormality. No acute osseous abnormality. IMPRESSION: No evidence of pulmonary embolism or aortic dissection. New bilateral pneumonia, [id number]-left. New lymphadenopathy, likely reactive. Consider three-month follow-up to ensure resolution. Reviewed, Interpreted and Dictated by Neva Lynn MD Transcribed by Franca Magallanes Authenticated and [facility]
[2024-10-31 12:51] LABS: HIV Combo NEGATIVE (Negative)
[2024-10-31 13:02] LABS: Hepatitis C Ab Qual. W/ RFX NEGATIVE (Negative)
[2024-10-31] MEDS: SODIUM CHLORIDE 0.9% 10ML SYR (RAD ONLY) 10 ML IV (13:18)
[2024-10-31] MEDS: 0.9 % SODIUM CHLORIDE 50 ML VIAL IV (13:18)
[2024-10-31] MEDS: IOPAMIDOL-370 (76%);100ML BOTTLE 70 ML IV (13:19)
--- NOTE | 2024-10-31 13:23 | PC.NURSE ---
PT ARRIVED BACK TO ROOM VIA WHEELCHAIR FROM RADIOLOGY
[2024-10-31] MEDS: ENOXAPARIN 100MG/ML SYRINGE 100 MG SUBCUT (13:36)
[2024-10-31] MEDS: AZITHROMYCIN 500 MG in 0.9 % SODIUM CHLORIDE 250 ML 250 MG IV (13:37)
--- NOTE | 2024-10-31 13:49 | P.HP_ITS ---
History of Present Illness *Admission Date: 10/31/24 *Reason for visit:: Dyspnea, weak *History of present illness: Mr. Poon is a 69-year-old male with history of hypertension, hyperlipidemia, COPD on 2 L chronically. Presented to the ER with complaint of worsening shortness of breath over the past 3 to 4 days. States he has developed some chills and cough. Cough has become productive. Denies nausea or vomiting. Denies chest pain. Son is with him states he has been very weak and having a difficult time breathing. Patient is fatigued but alert manage. On initial workup in the ER, patient was tachypneic with respiratory rate in the 50s and tachycardic with heart rate above 100. Initial labs show white count of 16.4. Chest CT with right middle and lower lobe pneumonia/airspace disease. Detectable troponin at 0.04. VBG with normal pH of 7.33, pCO2 of 78 on VBG. Medicine consulted for admission and further management of acute on chronic hypoxemic respiratory failure with sepsis and pneumonia In the ER, patient received DuoNebs, Decadron, IV magnesium with some i mprovement in air movement. Still appears to be in moderate distress with a tachypnea. On evaluation after arriving to the ICU, son is at bedside helps supplement history. States patient wants to be full code. Son is his surrogate decision-maker. Wears 2 L oxygen chronically. No longer smokes. [facility] Disclaimer: The information contained in this section may have been updated after the patient was seen, as this information can be updated by other users. Medical History CPAP (continuous positive airway pressure) dependence Sleep apnea Chronic hypoxemic respiratory failure Dyspnea on exertion Pneumonia Abnormal screening CT of chest Screening for lung cancer Encounter for screening for malignant neoplasm of lung in current smoker with 30 pack year history or greater Dyspnea on exertion COPD mixed type History of smoking 30 or more pack years COPD (chronic obstructive pulmonary disease) Surgical History History of appendectomy Previous back surgery Family History Other No significant family history Social History Smoking Status: Former smoker alcohol intake: current alcohol intake frequency: holidays/special occasions only substance use type: denies use current occupational status: disabled Travel in the last 8 weeks: None housing: apartment marital status: legally Have you lived/traveled outside [place] in past 30 days?: No Contact w/someone who lives/traveled outside US past 30 days?: No Exposure to someone with infectious disease in past 14 days?: No Do you have a fever (greater than 100.4 F or 38 C)?: No Have you tested positive for COVID-19: No Exposed to someone with COVID-19 in past 14 days?: No Do you have a sore throat?: No Do you have a cough?: No Do you have any weakness?: No Do you have any diarrhea?: No Are you experiencing any unusual bleeding?: No Do you have any muscle aches/pain?: No Do you have any abdominal pain?: No Are you experiencing loss of taste or smell?: No Other Medical History Have you received the Pneumonia Vaccine: Yes Review of Systems Review of Systems Review of systems (narrative): 14 point review of systems performed, pertinent positives and negatives as per HPI Meds Home Medications and Allergies Home Medications ?Medication ?Instructions ?Recorded ?Confirmed ?Type albuterol sulfate 90 mcg/actuation 2 inh inhalation QIDP PRN 10/31/24 10/31/24 History aerosol inhaler shortness of breath or wheezing atorvastatin 40 mg tablet 40 mg PO DAILY 10/31/24 10/31/24 History diclofenac sodium 75 mg 75 mg PO BID 10/31/24 10/31/24 History tablet,delayed release furosemide 20 mg tablet 20 mg PO BID 10/31/24 10/31/24 History potassium chloride 10 mEq 10 meq PO TID 10/31/24 10/31/24 History tablet,extended release(part/cryst) New Prescriptions to Start Prescriptions: Allergies Allergy/AdvReac Type Severity Reaction Status Date / Time No Known Allergies Allergy Verified 03/20/23 06:30 Exam Data for Last 24 hours Vital signs and Labs for Last 24 Hours: Temp Pulse Resp BP Pulse Ox O2 Del Method O2 Flow Rate 98.4 F 101 H 49 H 130/75 92 L Vapotherm 35 10/31/24 10:59 10/31/24 13:30 10/31/24 13:30 10/31/24 13:30 10/31/24 13:30 10/31/24 13:30 10/31/24 13:08 FiO2 50 10/31/24 13:08 Laboratory Results - last 24 hr 10/31/24 11:13: SARS-CoV-2 (PCR) Not detected, Influenza A Untype (PCR) Not detected, Influenza Type B (PCR) Not detected 10/31/24 11:16: VBG pH 7.33, VBG pCO2 78.3 H, VBG pO2 34.6, VBG HCO3 40.1 H, VBG Total CO2 42.5 H, VBG O2 Saturation 64.3, VBG Base Excess 14.1 H, VBG Lactic Acid 2.1 H 10/31/24 11:18: WBC 16.4 H, RBC 4.39 L, Hgb 13.4 L, Hct 42.9, MCV 97.7 H, MCH 30.5, MCHC 31.2 L, RDW 13.0, Plt Count 396, MPV 9.7, Neut % (Auto) 76.3, Lymph % (Auto) 10.5, Ellis % (Auto) 8.8, Eos % (Auto) 0.2, Baso % (Auto) 0.2, Neut # (Auto) 12.5 H, Lymph # (Auto) 1.7, Ellis # (Auto) 1.4 H, Eos # (Auto) 0.0, Baso # (Auto) 0.0, Total Counted 100, Neutrophils % (Manual) 85 H, Lymphocytes % (Manual) 12, Monocytes % (Manual) 2, Eosinophils % (Manual) 1, Platelet Estimate Normal, RBC Morphology Normal, Sodium 140, Potassium 4.0, Chloride 91 L, Carbon Dioxide 39 H, Anion Gap 14.0, BUN 26 H, Creatinine 1.10, Estimated Creat Clear 93, Estimated GFR 67, Est GFR ( Amer) 81, Glucose 190 H, Calcium 8.7, Total Bilirubin 0.5, AST 45, ALT 35, Alkaline Phosphatase 133 H, Troponin I 0.04 H, Total Protein 8.3 H D, Albumin 3.9, Globulin 4.4 H, Albumin/Globulin Ratio 0.9 L, HCV Ab DARELL w/Rflx PCR Qn Negative, HIV Ag/Ab Combo Qual Negative I & O for Last 24 hours: Intake & Output 10/28/24 10/29/24 10/30/24 10/31/24 23:59 23:59 23:59 23:59 Weight 102.058 kg Constitutional Constitutional: moderate distress, obese, chronically ill appearing, disheveled and cooperative *Routine HEENT Exam Head: Present normocephalic Eye: Present EOMI and PERRL ENT: Present mucous membranes moist *Routine Neck Exam Neck: Present supple; Absent lymphadenopathy *Routine Respiratory Exam Respiratory: Present accessory muscle use, prolonged expiratory phase, wheezes (diffuse), crackles (Rt lower lung field) and diminished air movement; Absent rhonchi *Routine Cardiovascular Exam Cardiovascular: Present tachycardia *Routine Abdominal Exam Abdominal: Present soft, normoactive bowel sounds and distended; Absent tenderness *Routine Rectal Exam Rectal:: deferred *Routine Genitalia Exam Genitalia:: deferred *Routine Extremities Exam Extremities: Absent cyanosis, clubbing or edema *Routine Skin Exam Skin: Present intact and warm; Absent rash *Routine Neurological Exam Neurological: Present alert, oriented X3 and moving all extremities; Absent altered mental status Assessment and Plan *Assessment and plan (1) Severe sepsis: Status: Acute Category: Medical Code(s): A41.9 - Sepsis, unspecified organism; R65.20 - Severe sepsis without septic shock (2) Acute on chronic hypoxic respiratory failure: Status: Acute Category: Medical Code(s): J96.21 - Acute and chronic respiratory failure with hypoxia (3) Acute exacerbation of chronic obstructive pulmonary disease: Status: Acute Category: Medical Code(s): J44.1 - Chronic obstructive pulmonary disease with (acute) exacerbation (4) Right lower lobe pneumonia: Status: Acute Category: Medical Code(s): J18.9 - Pneumonia, unspecified organism (5) Elevated troponin: Status: Acute Category: Medical Code(s): R79.89 - Other specified abnormal findings of blood chemistry (6) WISAM (obstructive sleep apnea): Problem Comment: Newly diagnosed mild WISAM with hypoxemia Status: Acute Category: Medical Code(s): G47.33 - Obstructive sleep apnea (adult) (pediatric) (7) History of smoking 30 or more pack years: Status: Chronic Category: Social Hx Code(s): Z87.891 - Personal history of nicotine dependence (8) Obesity (BMI 30.0-34.9): Status: Acute Category: Medical Code(s): E66.811 - Obesity, class 1 Plan 69-year-old male with COPD on chronic oxygen at 2 L. Presents with worsening shortness of breath and dyspnea over the past 3 to 4 days. Found to be in severe sepsis with pneumonia and acute on chronic hypoxemic respiratory failure. Necessitating Vapotherm of 60% to maintain sats above 90%. Discussed case with ER physician, request admission for further management of pneumonia. I agreed to admit for further care. Received ceftriaxone and azithromycin in the ER. Due to severity of illness, admitted to ICU as his condition is serious, prognosis guarded. Problems addressed as follows: Severe sepsis Acute on chronic hypoxemic respiratory failure secondary to right lower lobe pneumonia COPD exacerbation -Meeting sepsis criteria with tachycardia, tachypnea, leukocytosis, pneumonia on chest imaging. Severe criteria with endorgan damage given NSTEMI/elevation of troponin -Continue antibiotics with ceftriaxone 2 g daily and azithromycin 500 mg daily. -Baseline oxygen 2 L. Currently requiring Vapotherm. Wean as tolerated for goal sats greater 90%. -DuoNebs scheduled every 4 hours. Levalbuterol available every 2 hours as needed for persistent wheeze and dyspnea -Received steroids in the ER, continue prednisone 40 mg daily -Concern for PE on initial eval of CTA, received 1 mg/kg Lovenox. Formal read does not show PE. Per my evaluation, patient has right lower and middle lobe consolidation consistent with pneumonia. -White count elevated at 16.4, hemoglobin 13.4. Blood gas with chronic hypercapnia that is compensated with pH of 7.33, pCO2 of 78 on VBG. Bicarb 39 on CMP. Repeat CBC, CMP, magnesium ordered for the morning Troponin elevated at 0.04, suspect ischemia and type II NSTEMI from demand. Will hold on cardiology eval at this time. No ST changes on EKG per my review Kidney function at baseline with BUN 26, creatinine 1.1 Given severity of illness hold home Lipitor, diclofenac, Lasix at this time. Reevaluate resumption as patient stabilizes Obesity complicates all aspects of his care Full code Cardiac diet PLOV
--- NOTE | 2024-10-31 13:58 | HMH.PHAINT1 ---
Pharmacy Intervention Comments: MEDICATION RECONCILIATION COMPLETED ON PATIENT USING EXTERNAL FILL HISTORY FROM PHARMACY. -TERRY TERRY, SHAREED
--- NOTE | 2024-10-31 14:48 | PC.NURSE ---
HELPED PT TAKE OFF JEANS AND BRIEF FROM HOME AND RE ADJUST IN BED. HE NOW HAS A MALE PURWICK PLACED AT THIS RONNELL. I BAGGED PT BELONGING AND PLACED IN ROOM IN PT BELONGING BAG AT THIS TIME UNTIL HE GOES TO ICU BED
[2024-10-31 15:26] LABS: Troponin I 0.03 ng/ml (0.00-0.034)
[2024-10-31 15:31] LABS: Reflex Lactic Add Lactic Reflex
[2024-10-31 15:58] LABS: Lactic Acid Follow Up (RFLX 1) 0.8 mmol/L (0.7-2.1)
--- NOTE | 2024-10-31 17:49 | PC.NURSE ---
bladder scanned pt, 381 retaining as patient is having trouble urinating. aware, order to anchor cortes catheter for urinary retention
[2024-10-31] MEDS: IPRATROPIUM/ALBUTEROL 3 ML NEB IH ×2 (18:10→22:22)
[2024-10-31 18:24] LABS: Troponin I 0.02 ng/ml (0.00-0.034)
[2024-10-31] MEDS: LEVALBUTEROL 1.25MG/3ML NEB 1.25 MG IH (20:04)
--- NOTE | 2024-10-31 22:50 | PC.NURSE ---
Patient resting in bed when RN noticed that patient HR 180, AFIB RVR. Provider at bedside, and EKG obtained. Confirmation of AFIB RVR at 157 bpm. Verbal order for 5mg metoprolol administered without change. Order placed to start Amio bolus and Amio gtt at this time, SEE MAR. Patient alert and oriented during event. No complaints other than fatigue, and wanting to go to sleep because I've had a long day. Patient denies chest pain, or increased SOA from current baseline.
[2024-10-31] MEDS: AMIODARONE HCL 150 MG in DEXTROSE 5 % IN WATER 100 ML 618 MG IV (23:10)
[2024-10-31] MEDS: METOPROLOL TARTRATE 5MG/5ML VIAL 5 MG IV (23:21)
[2024-10-31] MEDS: AMIODARONE HCL 900 MG in DEXTROSE 5 % IN WATER 500 ML 34.53 MG IV (23:23)
[2024-10-31] MEDS: 0.9 % SODIUM CHLORIDE 1000ML 500 ML 250 ML IV (23:30)
[2024-11-01] VITALS (85 sets, daily range): BP systolic 74–192; BP diastolic 52–156; PULSE 48–153; RESP 14–44; TEMP 36.2–36.8; O2SAT 86–98; BMI 33.3
--- NOTE | 2024-11-01 00:38 | PC.NURSE ---
During midnight assessment TRN assessed patient with tachypnea in mid 30's and shallow respirations. Patient alert, and able to hold conversation but appears lethargic, and struggling to keep eyes open during conversation. Provider notified and ABG ordered.
--- NOTE | 2024-11-01 00:50 | XR_ITS ---
PROCEDURE INFORMATION: Exam: XR Chest Exam date and time: 11/01/2024 12:59 AM Age: 69 years old Clinical indication: Dyspnea; Additional info: SOB TECHNIQUE: Imaging protocol: Radiologic exam of the chest. Views: 1 view. COMPARISON: CR XR CHEST PORTABLE 10/31/2024 1:21 PM FINDINGS: Lungs: Interval improvement of the bibasilar interstitial airspace opacities. Pleural spaces: Stable small right-sided pleural effusion. No pneumothorax. Heart/Mediastinum: Unremarkable. No cardiomegaly. Bones/joints: Unremarkable. IMPRESSION: Interval improvement of the bibasilar interstitial airspace opacities.
[2024-11-01 00:51] LABS: ABG Base Excess 11.5 mmol/L (-2.4-2.3); ABG HCO3 38.2 mmhg (22.0-26.0); ABG Oxygen Saturation 96 % (90-100); ABG PH 7.28 mmol/L (7.35-7.45); ABG TCO2 40.7 mmhg (23-27)
[2024-11-01 00:53] LABS: Allen's Test Acceptable; Oxygen vapotherm 30L/50% %; Source Right Radial
[2024-11-01 00:54] LABS: ABG PCO2 82.3 mmhg (35.0-45.0)
[2024-11-01 01:28] LABS: Magnesium 2.8 mg/dl (1.6-2.3)
[2024-11-01] MEDS: VANCOMYCIN CONSULT REQUEST 1 EACH NOTAPPLIC (01:32)
[2024-11-01] MEDS: LEVALBUTEROL 1.25MG/3ML NEB 1.25 MG IH ×6 (01:40→22:06)
[2024-11-01] MEDS: VANCOMYCIN HCL 2,000 MG in 0.9 % SODIUM CHLORIDE 500 ML 250 MG IV (01:51)
[2024-11-01 01:59] LABS: NT Pro Brain Natriuretic Pep. 393 pg/mL (0-125)
[2024-11-01] MEDS: MAGNESIUM SULFATE IN WATER 2 GM/50 ML PIGGYBACK IV (02:17)
[2024-11-01 04:39] LABS: Lactate Venous 1.4 mmol/L (0.4-2.0); VBG HCO3 31.5 mmol/L (23-30); VBG Oxygen Saturation 67.1 % (50-70); VBG PCO2 76.4 mmol/L (35-51); VBG PH 7.23 mmol/L (7.31-7.41); VBG PO2 38.8 mmol/L (28-40); VBG Total CO2 33.8 mmol/L (23-27)
[2024-11-01 04:55] LABS: Basophils % 0.1 % (0.1-2.0); Hematocrit 39.2 % (42.0-52.0); Hemoglobin 12.1 g/dL (14.1-18.0); Lymphocytes % 11.7 % (10-50); Mean Corpuscular HGB Conc 30.9 g/dL (31.8-35.4); Mean Corpuscular Hemoglobin 30.8 pg (27.0-31.2); Mean Corpuscular Volume 99.7 fl (80-94); Mean Platelet Volume 10.2 fl (7.4-10.4); Monocytes # 0.7 K/mm3 (0.1-1.0); Monocytes % 4.4 % (1.7-9.3); Neutrophils # 13.3 K/mm3 (1.8-7.8); Neutrophils % 78.6 % (37.0-80.0); Platelet Count 378 K/mm3 (142-424); Red Blood Count 3.93 M/mm3 (4.60-6.20); Red Cell Distribution Width 13.1 % (11.5-17.5); White Blood Count 16.9 K/mm3 (4.8-10.8)
[2024-11-01 04:58] LABS: MANUAL DIFFERENTIAL MANUAL DIFFERENTIAL (MANUAL DIFF)
[2024-11-01 05:02] LABS: Albumin Level 3.6 g/dl (3.5-5.0); Chloride 95 mmol/L (98-107); Potassium 4.9 mmoL/L (3.5-5.1); Sodium 139 mmol/L (136-145)
[2024-11-01 05:04] LABS: Blood Urea Nitrogen 34 mg/dl (9-20); Creatinine Clearance Estimated 90 mL/min (50-200); Estimated Glomerular Filt Rate 60 ml/min (>60); GFR (African American) 73 ML/MIN (>60)
[2024-11-01 05:05] LABS: Alanine Aminotransferase 30 U/L (12-78); Albumin/Globulin Ratio 0.9 (1.1-1.8); Alkaline Phosphatase 94 U/L (38-126); Anion Gap 12.9 mEq/L (5-15); Aspartate Amino Transferase 37 U/L (17-59); Bilirubin,Total 0.3 mg/dl (0.2-1.3); Calcium 8.2 mg/dl (8.4-10.2); Carbon Dioxide 36 mmol/L (22.0-30.0); Globulin 3.9 g/dL (1.3-3.2); Glucose 226 mg/dl (74-100); Magnesium 3.5 mg/dl (1.6-2.3); Total Protein,Serum 7.5 g/dl (6.3-8.2)
[2024-11-01] MEDS: SODIUM CHLORIDE 1620 ML IV (05:21)
[2024-11-01] MEDS: PIPERACILLIN/TAZO 4.5 GM in 0.9 % SODIUM CHLORIDE 100 ML IV ×4 (05:22→23:09)
[2024-11-01 05:25] LABS: Lymphocytes % 13 % (10-50); Monocytes % 6 % (2-9); Neutrophils % 79 % (42-76); Platelet Estimate Normal; RBC Morphology Normal; Total Cells Counted 100
--- NOTE | 2024-11-01 05:39 | PC.NURSE ---
Approx 0415 patient attempted to get out of bed stating that he had to use the bathroom. Patient confused and adamant about walking to restroom. Patient redirected back into bed with Daisy SKINNER RN and BAKARI Quezada. Patient was diaphoretic, and had ripped Vapotherm off. Desats to 80%. Labored breathing noted. Patient oxygen replaced and due to confusion patient dislodged left AC IV, and right wrist. Pressure applied to both areas, and bleeding controlled. New IVs established in the right AC, and right hand. New orders placed for sepsis bolus, and abx. SEE NOV. Respiratory at bedside who obtains a VBG per verbal order, and after results patient then placed on bipap. Tolerating at this time. Patient is alert to self, and compliant at present. Remains lethargic, and drowsy. Tachypnea still present in the 40s. Lungs diminished with rales noted. Accessory muscle use observed. Patient with complete bed change to which he tolerated. Positioned to comfort. Resting comfortably at this time. Patient grandson at bedside, and updated per provider on patient condition and current plan of care.
[2024-11-01 05:53] LABS: Adenovirus,PCR Not Detected (NotDetected); Bordetella Pertussis Not Detected (NotDetected); Chlamydophila Pneumoniae, PCR Not Detected (NotDetected); Coronavirus 19, PCR Not Detected (NotDetected); Coronavirus 229E Not Detected (NotDetected); Coronavirus NL63 Not Detected (NotDetected); Coronavirus OC43 Not Detected (NotDetected); Coronovirus HKU1,PCR Not Detected (NotDetected); Human Metapneumovirus Not Detected (NotDetected); Influenza A, PCR Not Detected (NotDetected); Influenza AH1, 2009 Not Detected (NotDetected); Influenza AH1, PCR Not Detected (NotDetected); Influenza AH3,PCR Not Detected (NotDetected); Influenza B, PCR Not Detected (NotDetected); Mycoplasma Pneumoniae, PCR Not Detected (NotDetected); Parainfluenza 1, PCR Not Detected (NotDetected); Parainfluenza 2, PCR Not Detected (NotDetected); Parainfluenza 3, PCR Not Detected (NotDetected); Parainfluenza 4, PCR Not Detected (NotDetected); Respiratory Syncytial Virus Not Detected (NotDetected); Rhinovirus/Enterovirus Not Detected (NotDetected)
[2024-11-01] MEDS: LORazepam 2MG/ML VIAL 0.5 MG IV (07:02)
--- NOTE | 2024-11-01 08:10 | P.CONPHA_ITS ---
Pharmacy Consult Date: 11/01/24 Time: 08:10 Referring provider: JENSEN Reason for Consult:: INITIATION AND MANAGEMENT OF VANCOMYCIN THERAPY Allergies Allergy/AdvReac Type Severity Reaction Status Date / Time No Known Allergies Allergy Verified 03/20/23 06:30 Home Medications ?Medication ?Instructions ?Recorded ?Confirmed ?Type albuterol sulfate 90 mcg/actuation 2 inh inhalation QIDP PRN 10/31/24 10/31/24 History aerosol inhaler shortness of breath or wheezing atorvastatin 40 mg tablet 40 mg PO DAILY 10/31/24 10/31/24 History diclofenac sodium 75 mg 75 mg PO BID 10/31/24 10/31/24 History tablet,delayed release furosemide 20 mg tablet 20 mg PO BID 10/31/24 10/31/24 History potassium chloride 10 mEq 10 meq PO TID 10/31/24 10/31/24 History tablet,extended release(part/cryst) New Prescriptions to Start Prescriptions: Height: 1.8 m Weight: 108.046 kg Laboratory Results:: Laboratory Results - last 24 hr 10/31/24 05:50: Chlamy pneumoniae PCR Not detected, Adenovirus (PCR) Not detected, B. pertussis DNA (PCR) Not detected, Coronavirus OC43 (PCR) Not detected, Coronavirus HKU1 (PCR) Not detected, Coronavirus 229E (PCR) Not detected, SARS-CoV-2 (PCR) Not detected, Coronavirus NL63 (PCR) Not detected, Human Metapneumovir PCR Not detected, Influenza A (H1) PCR Not detected, Influ A (H1N1/09) PCR Not detected, Influenza A (H3) PCR Not detected, Influenza Type A (PCR) Not detected, Influenza Type B (PCR) Not detected, M. pneumoniae (PCR) Not detected, Parainfluenza 1 (PCR) Not detected, Parainfluenza 2 (PCR) Not detected, Parainfluenza 3 (PCR) Not detected, Parainfluenza 4 (PCR) Not detected, RSV (PCR) Not detected, Entero/Rhino (PCR) Not detected 10/31/24 11:13: SARS-CoV-2 (PCR) Not detected, Influenza A Untype (PCR) Not detected, Influenza Type B (PCR) Not detected 10/31/24 11:16: VBG pH 7.33, VBG pCO2 78.3 H, VBG pO2 34.6, VBG HCO3 40.1 H, VBG Total CO2 42.5 H, VBG O2 Saturation 64.3, VBG Base Excess 14.1 H, VBG Lactic Acid 2.1 H 10/31/24 11:18: WBC 16.4 H, RBC 4.39 L, Hgb 13.4 L, Hct 42.9, MCV 97.7 H, MCH 30.5, MCHC 31.2 L, RDW 13.0, Plt Count 396, MPV 9.7, Neut % (Auto) 76.3, Lymph % (Auto) 10.5, Stephenson % (Auto) 8.8, Eos % (Auto) 0.2, Baso % (Auto) 0.2, Neut # (Auto) 12.5 H, Lymph # (Auto) 1.7, Stephenson # (Auto) 1.4 H, Eos # (Auto) 0.0, Baso # (Auto) 0.0, Total Counted 100, Neutrophils % (Manual) 85 H, Lymphocytes % (Manual) 12, Monocytes % (Manual) 2, Eosinophils % (Manual) 1, Platelet Estimate Normal, RBC Morphology Normal, Sodium 140, Potassium 4.0, Chloride 91 L, Carbon Dioxide 39 H, Anion Gap 14.0, BUN 26 H, Creatinine 1.10, Estimated Creat Clear 93, Estimated GFR 67, Est GFR ( Amer) 81, Glucose 190 H, Calcium 8.7, Total Bilirubin 0.5, AST 45, ALT 35, Alkaline Phosphatase 133 H, Troponin I 0.04 H, Total Protein 8.3 H D, Albumin 3.9, Globulin 4.4 H, Albumin/Globulin Ratio 0.9 L, HCV Ab DARELL w/Rflx PCR Qn Negative, HIV Ag/Ab Combo Qual Negative 10/31/24 14:50: Troponin I 0.03 10/31/24 15:39: Lactate 0.8 10/31/24 17:38: Troponin I 0.02 11/01/24 00:43: Specimen Source Right radial, O2 % vapotherm 30l/50%, ABG pH 7.28 L, ABG pCO2 82.3 H, ABG pO2 91.0, ABG HCO3 38.2 H, ABG Total CO2 40.7 H, ABG O2 Saturation 96, ABG Base Excess 11.5 H, Prosper Test Acceptable 11/01/24 01:15: Magnesium 2.8 H, NT-Pro-B Natriuret Pep 393 H 11/01/24 04:36: VBG pH 7.23 L, VBG pCO2 76.4 H, VBG pO2 38.8, VBG HCO3 31.5 H, VBG Total CO2 33.8 H, VBG O2 Saturation 67.1, VBG Base Excess 4.0 H, VBG Lactic Acid 1.4 11/01/24 04:45: WBC 16.9 H, RBC 3.93 L, Hgb 12.1 L, Hct 39.2 L, MCV 99.7 H, MCH 30.8, MCHC 30.9 L, RDW 13.1, Plt Count 378, MPV 10.2, Neut % (Auto) 78.6, Lymph % (Auto) 11.7, Stephenson % (Auto) 4.4, Eos % (Auto) 0.0 L, Baso % (Auto) 0.1, Neut # (Auto) 13.3 H, Lymph # (Auto) 2.0, Stephenson # (Auto) 0.7, Eos # (Auto) 0.0, Baso # (Auto) 0.0, Total Counted 100, Neutrophils % (Manual) 79 H, Lymphocytes % (Manual) 13, Atypical Lymphs % 2.0, Monocytes % (Manual) 6, Platelet Estimate Normal, RBC Morphology Normal, Sodium 139, Potassium 4.9 D, Chloride 95 L, Carbon Dioxide 36 H, Anion Gap 12.9, BUN 34 H D, Creatinine 1.20, Estimated Creat Clear 90, Estimated GFR 60, Est GFR ( Amer) 73, Glucose 226 H, Calcium 8.2 L, Magnesium 3.5 H D, Total Bilirubin 0.3, AST 37, ALT 30, Alkaline Phosphatase 94, Total Protein 7.5, Albumin 3.6, Globulin 3.9 H, Albumin/Globulin Ratio 0.9 L 11/01/24 07:00: Lactate 1.0 Medical History: Medical History (Updated 10/31/24 @ 15:38 by Yg Licea MD) CPAP (continuous positive airway pressure) dependence Sleep apnea Chronic hypoxemic respiratory failure Dyspnea on exertion Pneumonia Abnormal screening CT of chest Screening for lung cancer Encounter for screening for malignant neoplasm of lung in current smoker with 30 pack year history or greater Dyspnea on exertion COPD mixed type History of smoking 30 or more pack years COPD (chronic obstructive pulmonary disease) Assessment and Plan Assessment and plan all Dx Assessment and Plan for all problems:: FROM H&P: *Admission Date: 10/31/24 *Reason for visit:: Dyspnea, weak *History of present illness: Mr. Poon is a 69-year-old male with history of hypertension, hyperlipidemia, COPD on 2 L chronically. Presented to the ER with complaint of worsening shortness of breath over the past 3 to 4 days. States he has developed some chills and cough. Cough has become productive. Denies nausea or vomiting. Denies chest pain. Son is with him states he has been very weak and having a difficult time breathing. Patient is fatigued but alert manage. On initial workup in the ER, patient was tachypneic with respiratory rate in the 50s and tachycardic with heart rate above 100. Initial labs show white count of 16.4. Chest CT with right middle and lower lobe pneumonia/airspace disease. Detectable troponin at 0.04. VBG with normal pH of 7.33, pCO2 of 78 on VBG. Medicine consulted for admission and further management of acute on chronic hypoxemic respiratory failure with sepsis and pneumonia In the ER, patient received DuoNebs, Decadron, IV magnesium with some improvement in air movement. In ER pt received ceftriaxone 1 gram and zithromax 500mg. Upon arrival to ICU pt received zosyn 4.5gm and vancomycin 2000mg. Will continue vancomycin 2000mg IV every 8 hours and draw levels before tomorrow am dose. Will adjust as necessary. Will follow daily as long as vancomycin continues.
[2024-11-01] MEDS: ENOXAPARIN 40MG/0.4ML SYRINGE 40 MG SUBCUT (09:27)
[2024-11-01] MEDS: VANCOMYCIN HCL 2,000 MG in 0.9 % SODIUM CHLORIDE 250 ML 125 MG IV ×2 (09:27→17:59)
[2024-11-01] MEDS: IPRATROPIUM BROMIDE 0.5 MG/2.5ML SOLUTION IH ×4 (10:15→22:06)
[2024-11-01 12:37] LABS: ABG Base Excess 4.1 mmol/L (-2.4-2.3); ABG HCO3 32.3 mmhg (22.0-26.0); ABG Oxygen Saturation 99 % (90-100); ABG PO2 135.3 mmhg (80-100); ABG TCO2 34.9 mmhg (23-27)
[2024-11-01 12:39] LABS: Allen's Test Patient Unable; Oxygen Bipap 18/8 60% %; Vent Rate 18
[2024-11-01 12:40] LABS: Source Right Radial
[2024-11-01] MEDS: METOPROLOL TARTRATE 5MG/5ML VIAL 5 MG IV (12:41)
[2024-11-01] MEDS: METHYLPREDNISOLONE SOD SUCC 40MG VIAL 40 MG IV (12:41)
[2024-11-01] MEDS: ENOXAPARIN 120MG/0.8ML SYRINGE 110 MG SUBCUT (12:41)
[2024-11-01 12:43] LABS: ABG PH 7.19 mmol/L (7.35-7.45)
[2024-11-01 12:44] LABS: ABG PCO2 86.4 mmhg (35.0-45.0)
[2024-11-01 14:26] LABS: ABG Base Excess 5.5 mmol/L (-2.4-2.3); ABG HCO3 32.6 mmhg (22.0-26.0); ABG Oxygen Saturation 97 % (90-100); ABG PH 7.26 mmol/L (7.35-7.45); ABG PO2 98.7 mmhg (80-100); ABG TCO2 34.8 mmhg (23-27)
[2024-11-01 14:28] LABS: Oxygen Bipap 22/12 40% %; Vent Rate 20
[2024-11-01 14:29] LABS: ABG PCO2 73.7 mmhg (35.0-45.0); Allen's Test Patient Unable; Source Right Radial
--- NOTE | 2024-11-01 15:25 | PC.NURSE ---
Patient remained on bipap during shift, ABG to be obtained at 1730. Lung sounds inspiratory rhonchi. Alert to self. Amio to continue at 0.5 per md.
--- NOTE | 2024-11-01 15:32 | P.PN_ITS ---
Subjective *Date: 11/01/24 *Time: 18:50 Interval history: Patient more obtained at this morning. Started on BiPAP early this morning due to hypercapnia and confusion overnight. Unable to give history. Pulling volumes between 3 and 400 cc on BiPAP. Family at bedside, updated of plan. A febrile. Remains tachycardic. Medical Exam Vital signs and Labs for Last 24 Hours: Vital Signs Temp Pulse Resp BP Pulse Ox O2 Del Method O2 Flow Rate 11/01/24 15:17 107/74 L 11/01/24 15:17 77 38 H 96 11/01/24 15:00 104/84 L 11/01/24 15:00 110 H 36 H 97 BiPAP 11/01/24 14:57 BiPAP 11/01/24 14:47 131 H 11/01/24 14:47 124 H 11/01/24 14:47 11/01/24 14:00 101/74 L 11/01/24 14:00 102 H 32 H 95 BiPAP 11/01/24 13:45 66 34 H 95 11/01/24 13:45 96/75 L 11/01/24 13:31 99/79 L 11/01/24 13:31 61 32 H 96 11/01/24 13:30 103 H 37 H 96 11/01/24 13:15 111/70 11/01/24 13:15 72 34 H 96 11/01/24 13:01 99 H 30 H 95 11/01/24 13:01 111/93 H 11/01/24 13:01 11/01/24 13:00 101 H 37 H 95 BiPAP 11/01/24 13:00 BiPAP 11/01/24 12:15 80 18 98 11/01/24 12:15 112/74 11/01/24 12:01 117/81 11/01/24 12:01 56 L 32 H 98 11/01/24 12:00 BiPAP 11/01/24 12:00 106 H 30 H 98 BiPAP 11/01/24 12:00 129 H 11/01/24 11:43 97.6 F 11/01/24 11:00 133 H 38 H 97 BiPAP 11/01/24 11:00 104/65 L 11/01/24 10:55 BiPAP 11/01/24 10:31 101 H 34 H 97 11/01/24 10:31 107/67 L 11/01/24 10:30 88 32 H 97 11/01/24 10:16 99/80 L 11/01/24 10:16 75 27 H 97 11/01/24 10:15 127 H 11/01/24 10:15 147 H 11/01/24 10:15 97 BiPAP 11/01/24 10:15 11/01/24 10:01 99/65 L 11/01/24 10:01 69 32 H 97 BiPAP 11/01/24 10:00 73 26 H 97 11/01/24 09:00 103/84 L 11/01/24 09:00 69 35 H 97 BiPAP 11/01/24 09:00 BiPAP 11/01/24 08:15 BiPAP 11/01/24 08:01 64 31 H 96 11/01/24 08:01 94/60 L 11/01/24 08:00 97.8 F 65 18 96 BiPAP 11/01/24 08:00 126 H 11/01/24 07:01 134 H 20 107/74 L 98 BiPAP 11/01/24 07:00 BiPAP 11/01/24 06:50 138 H 33 H 114/77 97 BiPAP 11/01/24 06:37 119 H 11/01/24 06:37 129 H 11/01/24 06:37 97 BiPAP 11/01/24 06:37 11/01/24 06:30 128 H 24 84/57 L 97 BiPAP 11/01/24 06:15 130 H 18 94/63 L 97 BiPAP 11/01/24 06:00 133 H 21 87/63 L 97 BiPAP 11/01/24 05:45 120 H 26 H 90/62 L 97 BiPAP 11/01/24 05:31 128 H 29 H 97/70 L 98 BiPAP 11/01/24 05:00 139 H 36 H 92/64 L 97 BiPAP 11/01/24 05:00 BiPAP 11/01/24 04:53 74/55 L 11/01/24 04:40 98 BiPAP 11/01/24 04:40 11/01/24 04:01 75 34 H 99/68 L 94 L Vapotherm 30 11/01/24 04:00 BiPAP 11/01/24 03:39 95 35 11/01/24 03:30 98.2 F 63 39 H 93/75 L 95 Vapotherm 30 11/01/24 03:01 138 H 39 H 101/81 L 95 Vapotherm 30 11/01/24 03:00 Vapotherm 30 11/01/24 02:44 136 H 36 H 101/75 L 95 Vapotherm 30 11/01/24 02:06 153 H 22 124/80 93 L Vapotherm 30 11/01/24 01:40 146 H 11/01/24 01:40 145 H 11/01/24 01:30 132 H 21 94/74 L 93 L Vapotherm 30 11/01/24 01:00 130 H 32 H 98/62 L 96 Vapotherm 30 11/01/24 01:00 Vapotherm 30 11/01/24 00:30 144 H 26 H 97/80 L 95 11/01/24 00:00 30 11/01/24 00:00 98.0 F 142 H 42 H 108/89 L 94 L Vapotherm 30 11/01/24 00:00 141 H 10/31/24 23:40 146 H 36 H 116/91 H 95 Vapotherm 30 10/31/24 23:30 123 H 38 H 92 L Vapotherm 30 10/31/24 23:15 121 H 24 91 L Vapotherm 30 10/31/24 23:00 Vapotherm 10/31/24 22:59 145 H 20 106/83 L 95 Vapotherm 30 10/31/24 22:53 171 H 14 99/80 L 93 L Vapotherm 30 10/31/24 22:23 87 10/31/24 22:23 91 H 10/31/24 22:00 93 H 26 H 133/86 95 Vapotherm 30 10/31/24 21:00 97 H 18 122/88 96 Vapotherm 30 10/31/24 21:00 Vapotherm 30 10/31/24 20:20 95 Vapotherm 30 10/31/24 20:08 95 H 10/31/24 20:08 99 H 10/31/24 20:08 95 Vapotherm 35 10/31/24 20:00 96 H 10/31/24 20:00 98.5 F 95 H 20 125/84 96 Vapotherm 30 10/31/24 20:00 Vapotherm 30 10/31/24 19:00 94 H 25 H 132/82 92 L Vapotherm 30 10/31/24 18:38 Vapotherm 10/31/24 18:15 99 H 26 H 94 L 10/31/24 18:10 99 H 10/31/24 18:10 102 H 10/31/24 18:10 94 L Vapotherm 35 10/31/24 18:00 145/82 H 10/31/24 18:00 102 H 21 93 L Vapotherm 10/31/24 17:00 136/89 10/31/24 17:00 96 H 23 96 Vapotherm 10/31/24 16:50 Vapotherm 10/31/24 16:00 98.9 F 98 H 28 H 135/85 96 Vapotherm 10/31/24 16:00 97 H FiO2 11/01/24 15:17 11/01/24 15:17 11/01/24 15:00 11/01/24 15:00 11/01/24 14:57 11/01/24 14:47 11/01/24 14:47 11/01/24 14:47 40 11/01/24 14:00 11/01/24 14:00 11/01/24 13:45 11/01/24 13:45 11/01/24 13:31 11/01/24 13:31 11/01/24 13:30 11/01/24 13:15 11/01/24 13:15 11/01/24 13:01 11/01/24 13:01 11/01/24 13:01 40 11/01/24 13:00 11/01/24 13:00 11/01/24 12:15 11/01/24 12:15 11/01/24 12:01 11/01/24 12:01 11/01/24 12:00 11/01/24 12:00 11/01/24 12:00 11/01/24 11:43 11/01/24 11:00 11/01/24 11:00 11/01/24 10:55 11/01/24 10:31 11/01/24 10:31 11/01/24 10:30 11/01/24 10:16 11/01/24 10:16 11/01/24 10:15 11/01/24 10:15 11/01/24 10:15 60 11/01/24 10:15 60 11/01/24 10:01 11/01/24 10:01 11/01/24 10:00 11/01/24 09:00 11/01/24 09:00 11/01/24 09:00 11/01/24 08:15 11/01/24 08:01 11/01/24 08:01 11/01/24 08:00 11/01/24 08:00 11/01/24 07:01 11/01/24 07:00 11/01/24 06:50 11/01/24 06:37 11/01/24 06:37 11/01/24 06:37 60 11/01/24 06:37 60 11/01/24 06:30 11/01/24 06:15 11/01/24 06:00 11/01/24 05:45 11/01/24 05:31 11/01/24 05:00 11/01/24 05:00 11/01/24 04:53 11/01/24 04:40 60 11/01/24 04:40 60 11/01/24 04:01 11/01/24 04:00 60 11/01/24 03:39 40 11/01/24 03:30 11/01/24 03:01 11/01/24 03:00 11/01/24 02:44 11/01/24 02:06 11/01/24 01:40 11/01/24 01:40 11/01/24 01:30 11/01/24 01:00 11/01/24 01:00 11/01/24 00:30 11/01/24 00:00 50 11/01/24 00:00 11/01/24 00:00 10/31/24 23:40 10/31/24 23:30 10/31/24 23:15 10/31/24 23:00 10/31/24 22:59 10/31/24 22:53 10/31/24 22:23 10/31/24 22:23 10/31/24 22:00 10/31/24 21:00 10/31/24 21:00 10/31/24 20:20 50 10/31/24 20:08 10/31/24 20:08 10/31/24 20:08 50 10/31/24 20:00 10/31/24 20:00 10/31/24 20:00 50 10/31/24 19:00 10/31/24 18:38 10/31/24 18:15 10/31/24 18:10 10/31/24 18:10 10/31/24 18:10 50 10/31/24 18:00 10/31/24 18:00 10/31/24 17:00 10/31/24 17:00 10/31/24 16:50 10/31/24 16:00 10/31/24 16:00 Intake and Output 10/31/24 11/01/24 11/01/24 23:59 07:59 15:59 Intake Total 240 / 240 3081.209 / 4735.209 1654 / 4735.209 Output Total 725 / 825 100 / 245 145 / 245 Balance -485 / -585 2981.209 / 4490.209 1509 / 4490.209 Intake: Intake, Oral Amount 240 / 240 Intake, Other Amount 1654 / 1654 Intake, Total IV Amount 3081.209 / 3081.209 0.9 % Sodium Chloride 1000ML 3, 1620 / 1620 240 ml @ 1620 mls/hr IV .Q2H ONE Rx#:[id number] 0.9 % Sodium Chloride 1000ML 500 / 500 500 ml @ 250 mls/hr IV .Q2H ONE Rx#:[id number] Amiodarone HCl 150 mg In 100 / 100 Dextrose 5 % in Water 100 ml @ 618 mls/hr IV ONCE ONE Rx#: [id number] Magnesium Sulfate in Water 2 gm 50 / 50 In 50 ml @ 50 mls/hr IV ONCE ONE Rx#:[id number] Piperacillin/Tazo 4.5 gm In 0.9 100 / 100 % Sodium Chloride 100 ml @ 200 mls/hr IV Q6H JAZZMINE Rx#:[id number] Vancomycin HCl 2,000 mg In 0.9 500 / 500 % Sodium Chloride 500 ml @ 250 mls/hr IV ONCE ONE Rx#:[id number] Output: Output, Urine Amount (Catheter) 725 / 825 100 / 245 145 / 245 Price 725 / 825 100 / 245 145 / 245 Other: Intake, Other Source Saline Solution Number of Unmeasured Voids 0 0 Weight 108.046 kg 108.046 kg Patient Weight 11/01/24 23:59 Weight 108.046 kg Laboratory Results - last 24 hr 10/31/24 05:50: Chlamy pneumoniae PCR Not detected, Adenovirus (PCR) Not detected, B. pertussis DNA (PCR) Not detected, Coronavirus OC43 (PCR) Not detected, Coronavirus HKU1 (PCR) Not detected, Coronavirus 229E (PCR) Not detected, SARS-CoV-2 (PCR) Not detected, Coronavirus NL63 (PCR) Not detected, Human Metapneumovir PCR Not detected, Influenza A (H1) PCR Not detected, Influ A (H1N1/09) PCR Not detected, Influenza A (H3) PCR Not detected, Influenza Type A (PCR) Not detected, Influenza Type B (PCR) Not detected, M. pneumoniae (PCR) Not detected, Parainfluenza 1 (PCR) Not detected, Parainfluenza 2 (PCR) Not detected, Parainfluenza 3 (PCR) Not detected, Parainfluenza 4 (PCR) Not detected, RSV (PCR) Not detected, Entero/Rhino (PCR) Not detected 10/31/24 15:39: Lactate 0.8 10/31/24 17:38: Troponin I 0.02 11/01/24 00:43: Specimen Source Right radial, O2 % vapotherm 30l/50%, ABG pH 7.28 L, ABG pCO2 82.3 H, ABG pO2 91.0, ABG HCO3 38.2 H, ABG Total CO2 40.7 H, ABG O2 Saturation 96, ABG Base Excess 11.5 H, Prosper Test Acceptable 11/01/24 01:15: Magnesium 2.8 H, NT-Pro-B Natriuret Pep 393 H 11/01/24 04:36: VBG pH 7.23 L, VBG pCO2 76.4 H, VBG pO2 38.8, VBG HCO3 31.5 H, VBG Total CO2 33.8 H, VBG O2 Saturation 67.1, VBG Base Excess 4.0 H, VBG Lactic Acid 1.4 11/01/24 04:45: WBC 16.9 H, RBC 3.93 L, Hgb 12.1 L, Hct 39.2 L, MCV 99.7 H, MCH 30.8, MCHC 30.9 L, RDW 13.1, Plt Count 378, MPV 10.2, Neut % (Auto) 78.6, Lymph % (Auto) 11.7, [place] % (Auto) 4.4, Eos % (Auto) 0.0 L, Baso % (Auto) 0.1, Neut # (Auto) 13.3 H, Lymph # (Auto) 2.0, [place] # (Auto) 0.7, Eos # (Auto) 0.0, Baso # (Auto) 0.0, Total Counted 100, Neutrophils % (Manual) 79 H, Lymphocytes % (Manual) 13, Atypical Lymphs % 2.0, Monocytes % (Manual) 6, Platelet Estimate Normal, RBC Morphology Normal, Sodium 139, Potassium 4.9 D, Chloride 95 L, Carbon Dioxide 36 H, Anion Gap 12.9, BUN 34 H D, Creatinine 1.20, Estimated Creat Clear 90, Estimated GFR 60, Est GFR ( Amer) 73, Glucose 226 H, Ca lcium 8.2 L, Magnesium 3.5 H D, Total Bilirubin 0.3, AST 37, ALT 30, Alkaline Phosphatase 94, Total Protein 7.5, Albumin 3.6, Globulin 3.9 H, Albumin/Globulin Ratio 0.9 L 11/01/24 07:00: Lactate 1.0 11/01/24 12:27: Specimen Source Right radial, O2 % Bipap 18/8 60%, ABG pH 7.19 L*, ABG pCO2 86.4 H, ABG pO2 135.3 H, ABG HCO3 32.3 H, ABG Total CO2 34.9 H, ABG O2 Saturation 99, ABG Base Excess 4.1 H, Prosper Test Patient unable, Vent Rate 18 11/01/24 14:19: Specimen Source Right radial, O2 % Bipap 22/ 40%, ABG pH 7.26 L, ABG pCO2 73.7 H, ABG pO2 98.7, ABG HCO3 32.6 H, ABG Total CO2 34.8 H, ABG O2 Saturation 97, ABG Base Excess 5.5 H, Prosper Test Patient unable, Vent Rate 20 I & O for Labs for Last 24 Hours: Intake & Output 10/29/24 10/30/24 10/31/24 11/01/24 23:59 23:59 23:59 23:59 Intake Total 240 / 240 4735.209 / 4735.209 Output Total 725 / 825 245 / 245 Balance -485 / -585 4490.209 / 4490.209 Weight 102.058 kg 108.046 kg Microbiology Reports for the Last 24 Hours: Microbiology 10/31/24 11:55 Blood Blood Culture - Preliminary NO GROWTH AFTER 24 HOURS 10/31/24 11:55 Blood Blood Culture - Preliminary NO GROWTH AFTER 24 HOURS Constitutional: Present moderate distress, obese, chronically ill appearing and somnolent Head: Present atraumatic and normocephalic ENT: Present normal exam Respiratory: Present accessory muscle use, prolonged expiratory phase, rhonchi, wheezes and diminished air movement Cardiac: Present Tachycardia Comment:: irregularly irregular GI: Present soft, distention and normal bowel sounds; Absent tenderness Extremities: Present normal inspection and full ROM; Absent edema Skin: Present intact; Absent erythema Neuro: Present Grossly Intact and moves all extremities Comment:: Obtunded on initial exam. Has shown improvement with improvement in blood gas. Assessment and Plan *Assessment and plan (1) Severe sepsis: Status: Acute Category: Medical Code(s): A41.9 - Sepsis, unspecified organism; R65.20 - Severe sepsis without septic shock (2) Acute on chronic hypoxic respiratory failure: Status: Acute Category: Medical Code(s): J96.21 - Acute and chronic respiratory failure with hypoxia (3) Acute exacerbation of chronic obstructive pulmonary disease: Status: Acute Category: Medical Code(s): J44.1 - Chronic obstructive pulmonary disease with (acute) exacerbation (4) Right lower lobe pneumonia: Status: Acute Category: Medical Code(s): J18.9 - Pneumonia, unspecified organism (5) Elevated troponin: Status: Acute Category: Medical Code(s): R79.89 - Other specified abnormal findings of blood chemistry (6) WISAM (obstructive sleep apnea): Problem Comment: Newly diagnosed mild WISAM with hypoxemia Status: Acute Category: Medical Code(s): G47.33 - Obstructive sleep apnea (adult) (pediatric) (7) History of smoking 30 or more pack years: Status: Chronic Category: Social Hx Code(s): Z87.891 - Personal history of nicotine dependence (8) Obesity (BMI 30.0-34.9): Status: Acute Category: Medical Code(s): E66.811 - Obesity, class 1 (9) Hypercapnic respiratory failure: Status: Acute Category: Medical Code(s): J96.92 - Respiratory failure, unspecified with hypercapnia (10) A-fib: Status: Acute Category: Medical Code(s): I48.91 - Unspecified atrial fibrillation Plan 69-year-old male with COPD on chronic oxygen at 2 L. Presents with worsening shortness of breath and dyspnea over the past 3 to 4 days. Found to be in severe sepsis with pneumonia and acute on chronic hypoxemic respiratory failure. Necessitating Vapotherm of 60% to maintain sats above 90%. Discussed case with ER physician, request admission for further management of pneumonia. I agreed to admit for further care. Received ceftriaxone and azithromycin in the ER. Due to severity of illness, admitted to ICU as his condition is serious, prognosis guarded. Had worsening of condition overnight necessitating BiPAP due to hypercapnic failure. Monitor for improvement with BiPAP. Problems addressed as follows: Severe sepsis Acute on chronic hypoxemic respiratory failure with hypercapnia secondary to right lower lobe pneumonia COPD exacerbation -Meeting sepsis criteria with tachycardia, tachypnea, leukocytosis, pneumonia on chest imaging. Severe criteria with endorgan damage given NSTEMI/elevation of troponin -Continue antibiotics, broadened to Vanco and Zosyn overnight. -Currently on BiPAP, pressures 18/8, FiO2 60%. Pulmonology consulted to assist with care due to hypercapnia. Morning blood gas with pH 7.23, CO2 76. Repeat ABG ordered and pending -DuoNebs scheduled every 4 hours. Levalbuterol available every 2 hours as needed for persistent wheeze and dyspnea -Received steroids in the ER, continue prednisone 40 mg daily -Concern for PE on initial eval of CTA, received 1 mg/kg Lovenox. Formal read does not show PE. Per my evaluation, patient has right lower and middle lobe consolidation consistent with pneumonia. -White count elevated at 16.9, hemoglobin 13.4. Blood gas with chronic hypercapnia that is compensated with pH of 7.33, pCO2 of 78 on VBG. Bicarb 39 on CMP. Repeat CBC, CMP, magnesium ordered for the morning A-fib RVR And any - A-fib RVR overnight. Started on amiodarone bolus and drip. Will continue amiodarone due to poor p.o. intake today. Initiating Lovenox therapeutically 1 mg/kg twice daily for anticoagulation. -Continue to monitor on telemetry - Troponin elevated at 0.04, suspect ischemia and type II NSTEMI from demand. Consider cardiology eval on Sunday Kidney function at baseline with BUN 34, creatinine 1.2. Given severity of illness hold home Lipitor, diclofenac, Lasix at this time. Reevaluate resumption as patient stabilizes Obesity complicates all aspects of his care Full code Cardiac diet TLOV
[2024-11-01] MEDS: AMIODARONE HCL 900 MG in DEXTROSE 5 % IN WATER 500 ML 17.27 MG IV (17:23)
[2024-11-01 18:46] LABS: ABG Base Excess 6.5 mmol/L (-2.4-2.3); ABG Oxygen Saturation 97 % (90-100); ABG PH 7.36 mmol/L (7.35-7.45); ABG PO2 90.1 mmhg (80-100); ABG TCO2 33.8 mmhg (23-27)
[2024-11-01 19:26] LABS: ABG PCO2 58.7 mmhg (35.0-45.0)
[2024-11-01] MEDS: AMIODARONE 200MG TABLET 400 MG PO (20:14)
--- NOTE | 2024-11-01 20:18 | PC.NURSE ---
Notified hospitalist regarding pt's increased heart rate between 135-160. Continue plan of PO amio and to turn amio gtt on standby. Orders carried out.
--- NOTE | 2024-11-01 20:34 | PC.NURSE ---
Pt having a productive cough. Specimen cup brought to bedside for sputum sample. Pt verbalized understanding.
--- NOTE | 2024-11-01 21:25 | PC.NURSE ---
Sputum obtained and send to lab at this time
[2024-11-02] VITALS (72 sets, daily range): BP systolic 86–169; BP diastolic 59–144; PULSE 44–150; RESP 13–42; TEMP 36.6; O2SAT 81–98; BMI 33.4
--- NOTE | 2024-11-02 00:13 | PC.NURSE ---
Bed bath and linen change completed at this time
[2024-11-02] MEDS: ENOXAPARIN 120MG/0.8ML SYRINGE 110 MG SUBCUT ×2 (00:39→11:48)
[2024-11-02] MEDS: METHYLPREDNISOLONE SOD SUCC 40MG VIAL 40 MG IV ×2 (00:40→20:47)
[2024-11-02] MEDS: VANCOMYCIN HCL 2,000 MG in 0.9 % SODIUM CHLORIDE 250 ML 125 MG IV (01:27)
[2024-11-02] MEDS: LEVALBUTEROL 1.25MG/3ML NEB 1.25 MG IH ×6 (02:39→20:38)
[2024-11-02] MEDS: IPRATROPIUM BROMIDE 0.5 MG/2.5ML SOLUTION IH ×5 (02:39→18:42)
[2024-11-02] MEDS: PIPERACILLIN/TAZO 4.5 GM in 0.9 % SODIUM CHLORIDE 100 ML IV ×3 (04:24→16:48)
--- NOTE | 2024-11-02 06:00 | XR_ITS ---
PROCEDURE INFORMATION: Exam: XR Chest Exam date and time: 11/02/2024 6:26 AM Age: 69 years old Clinical indication: Other: Resp failure; Additional info: Respiratory failure TECHNIQUE: Imaging protocol: Radiologic exam of the chest. Views: 1 view. COMPARISON: CR XR CHEST PORTABLE 11/01/2024 12:59 AM FINDINGS: Lungs: Bibasilar interstitial opacities likely representing atelectasis or infection are stable. Pleural spaces: Unremarkable. No pleural effusion. No pneumothorax. Heart/Mediastinum: Unremarkable. No cardiomegaly. Bones/joints: Unremarkable. IMPRESSION: Bibasilar interstitial opacities likely representing atelectasis or infection are stable.
--- NOTE | 2024-11-02 06:31 | PC.NURSE ---
Pt remains in uncontrolled afib with rates between 130-140. Bipap remains on while pt is asleep. Family remains at bedside
[2024-11-02] MEDS: METOPROLOL TARTRATE 5MG/5ML VIAL 5 MG IV ×2 (07:54→13:55)
[2024-11-02] MEDS: AMIODARONE 200MG TABLET 400 MG PO ×2 (08:44→20:03)
[2024-11-02] MEDS: METOPROLOL SUCCINATE XL 50MG TABLET 50 MG PO (08:44)
[2024-11-02 09:43] LABS: Basophils # 0.1 K/mm3 (0-0.2); Basophils % 0.6 % (0.1-2.0); Hematocrit 36.4 % (42.0-52.0); Hemoglobin 11.2 g/dL (14.1-18.0); Lymphocytes # 1.2 K/mm3 (0.7-4.5); Lymphocytes % 6.4 % (10-50); Mean Corpuscular HGB Conc 30.8 g/dL (31.8-35.4); Mean Corpuscular Hemoglobin 30.6 pg (27.0-31.2); Mean Corpuscular Volume 99.5 fl (80-94); Monocytes # 0.5 K/mm3 (0.1-1.0); Monocytes % 2.6 % (1.7-9.3); Neutrophils # 15.7 K/mm3 (1.8-7.8); Neutrophils % 86.8 % (37.0-80.0); Platelet Count 362 K/mm3 (142-424); Red Blood Count 3.66 M/mm3 (4.60-6.20); Red Cell Distribution Width 12.9 % (11.5-17.5); White Blood Count 18.1 K/mm3 (4.8-10.8)
[2024-11-02 09:51] LABS: MANUAL DIFFERENTIAL MANUAL DIFFERENTIAL (MANUAL DIFF)
[2024-11-02 09:54] LABS: Albumin Level 3.1 g/dl (3.5-5.0); Chloride 101 mmol/L (98-107); Potassium 4.1 mmoL/L (3.5-5.1); Sodium 140 mmol/L (136-145)
[2024-11-02 09:56] LABS: Blood Urea Nitrogen 47 mg/dl (9-20)
[2024-11-02 09:57] LABS: Alanine Aminotransferase 26 U/L (12-78); Alkaline Phosphatase 88 U/L (38-126); Anion Gap 6.1 mEq/L (5-15); Aspartate Amino Transferase 26 U/L (17-59); Bilirubin,Total 0.2 mg/dl (0.2-1.3); Calcium 7.3 mg/dl (8.4-10.2); Carbon Dioxide 37 mmol/L (22.0-30.0); Creatinine Clearance Estimated 72 mL/min (50-200); Estimated Glomerular Filt Rate 47 ml/min (>60); GFR (African American) 56 ML/MIN (>60); Globulin 3.2 g/dL (1.3-3.2); Glucose 177 mg/dl (74-100); Magnesium 2.9 mg/dl (1.6-2.3); Phosphorous 3.9 mg/dl (2.5-4.5); Total Protein,Serum 6.3 g/dl (6.3-8.2)
--- NOTE | 2024-11-02 10:20 | EXP.PHA.CONS ---
Pharmacy Consult Date: 11/02/24 Time: 10:21 Referring provider: DR GERMAIN Reason for Consult:: VANCOMYCIN TROUGH LEVEL OBTAINED. Allergies Allergy/AdvReac Type Severity Reaction Status Date / Time No Known Allergies Allergy Verified 03/20/23 06:30 Home Medications ?Medication ?Instructions ?Recorded ?Confirmed ?Type albuterol sulfate 90 mcg/actuation 2 inh inhalation QIDP PRN 10/31/24 10/31/24 History aerosol inhaler shortness of breath or wheezing atorvastatin 40 mg tablet 40 mg PO DAILY 10/31/24 10/31/24 History diclofenac sodium 75 mg 75 mg PO BID 10/31/24 10/31/24 History tablet,delayed release furosemide 20 mg tablet 20 mg PO BID 10/31/24 10/31/24 History potassium chloride 10 mEq 10 meq PO TID 10/31/24 10/31/24 History tablet,extended release(part/cryst) New Prescriptions to Start Prescriptions: Height: 1.8 m Weight: 108.409 kg Laboratory Results:: Laboratory Results - last 24 hr 11/01/24 12:27: Specimen Source Right radial, O2 % Bipap 18/8 60%, ABG pH 7.19 L*, ABG pCO2 86.4 H, ABG pO2 135.3 H, ABG HCO3 32.3 H, ABG Total CO2 34.9 H, ABG O2 Saturation 99, ABG Base Excess 4.1 H, Prosper Test Patient unable, Vent Rate 18 11/01/24 14:19: Specimen Source Right radial, O2 % Bipap 22/12 40%, ABG pH 7.26 L, ABG pCO2 73.7 H, ABG pO2 98.7, ABG HCO3 32.6 H, ABG Total CO2 34.8 H, ABG O2 Saturation 97, ABG Base Excess 5.5 H, Prosper Test Patient unable, Vent Rate 20 11/01/24 17:30: ABG pH 7.36, ABG pCO2 58.7 H, ABG pO2 90.1, ABG HCO3 32.0 H, ABG Total CO2 33.8 H, ABG O2 Saturation 97, ABG Base Excess 6.5 H 11/02/24 09:04: WBC 18.1 H, RBC 3.66 L, Hgb 11.2 L, Hct 36.4 L, MCV 99.5 H, MCH 30.6, MCHC 30.8 L, RDW 12.9, Plt Count 362, MPV 10.0, Neut % (Auto) 86.8 H, Lymph % (Auto) 6.4 L, [place] % (Auto) 2.6, Eos % (Auto) 0.0 L, Baso % (Auto) 0.6, Neut # (Auto) 15.7 H, Lymph # (Auto) 1.2, [place] # (Auto) 0.5, Eos # (Auto) 0.0, Baso # (Auto) 0.1, Sodium 140, Potassium 4.1, Chloride 101, Carbon Dioxide 37 H, Anion Gap 6.1, BUN 47 H D, Creatinine 1.50 H D, Estimated Creat Clear 72, Estimated GFR 47 L, Est GFR ( Amer) 56 L D, Glucose 177 H, Calcium 7.3 L, Phosphorus 3.9, Magnesium 2.9 H D, Total Bilirubin 0.2, AST 26 D, ALT 26, Alkaline Phosphatase 88, Total Protein 6.3, Albumin 3.1 L D, Globulin 3.2, Albumin/Globulin Ratio 1.0 L, Vancomycin Trough 33.0 H Medical History: Medical History (Updated 11/01/24 @ 18:54 by Yg Germain MD) CPAP (continuous positive airway pressure) dependence Sleep apnea Chronic hypoxemic respiratory failure Dyspnea on exertion Pneumonia Abnormal screening CT of chest Screening for lung cancer Encounter for screening for malignant neoplasm of lung in current smoker with 30 pack year history or greater Dyspnea on exertion COPD mixed type History of smoking 30 or more pack years COPD (chronic obstructive pulmonary disease) Assessment and Plan Assessment and plan all Dx Assessment and Plan for all problems:: Pharmacokinetic dosing service Weight: 108.409 Kilograms Vancomycin single level analysis: Current dose being given: 2000 mg Current dosing interval: 8 hrs Current infusion time (hrs): 2 Single level Trough Data: Trough level obtained: 33 mcg/ml Timing of trough - # of hrs before next dose: 0.5 Hrs Desired peak: 35 mcg/ml Desired trough: 12.5 mcg/ml Diagnosis: SEPSIS Estimated PK Parameters: New rate constant (lukas): 0.083 hr-1 Half-life: 8.35 Hours Vd from levels: 70.47 Liters (0.7 L/kg) CLvanco=?? 5.849 L/hr Estimated New Dose and Interval Recommended dose: 1866.7 mg Recommended interval: 14.4 Hrs Recommendations: Give Vancomycin 1500 mg q 12 hrs. Infuse over 2 hrs Expected Cpeak: 31.1 mcg/mL Expected Ctrough: 13.6 mcg/mL AUC 0-24 /MIRELLA Data: MIRELLA 0.5 mcg/mL:?? AUC/MIRELLA:? 1025.8 MIRELLA 1.0 mcg/mL:?? AUC/MIRELLA:? 512.9 Thank you for the consult
[2024-11-02 10:22] LABS: Lymphocytes % 7 % (10-50); Monocytes % 3 % (2-9); Neutrophils % 90 % (42-76); Platelet Estimate Normal; RBC Morphology Normal; Total Cells Counted 100
[2024-11-02 10:30] LABS: Procalcitonin 0.176 ng/mL (0.0-2.0)
--- NOTE | 2024-11-02 12:26 | P.PN_ITS ---
Subjective *Date: 11/02/24 *Time: 18:34 Interval history: Patient more obtained at this morning. Tolerating BiPAP overnight. More interactive. Answering questions appropriately. Making good eye contact. Weaned to nasal cannula oxygen while awake at 4 L. Tolerating p.o. intake today. Will remove Price. Afebrile. Family at bedside. Updated of plan. Medical Exam Vital signs and Labs for Last 24 Hours: Vital Signs Temp Pulse Pulse Resp BP BP Pulse Ox 11/02/24 12:01 112/92 H 11/02/24 12:00 136 H 34 H 90 L 11/02/24 12:00 142 H 11/02/24 11:00 124 H 26 H 117/67 95 11/02/24 11:00 11/02/24 10:41 130 H 11/02/24 10:41 125 H 11/02/24 10:41 94 L 11/02/24 10:03 36 H 102/69 L 93 L 11/02/24 10:02 40 H 96 11/02/24 09:01 119/88 11/02/24 09:00 124 H 28 H 92 L 11/02/24 09:00 11/02/24 08:01 90/71 L 11/02/24 08:01 60 13 11/02/24 08:00 97.8 F 63 17 89 L 11/02/24 08:00 137 H 11/02/24 07:46 119/78 11/02/24 07:30 11/02/24 07:00 69 94 L 11/02/24 06:46 109/84 L 11/02/24 06:46 65 95 11/02/24 06:35 11/02/24 06:31 108/83 L 11/02/24 06:31 64 96 11/02/24 06:30 71 96 11/02/24 06:16 61 95 11/02/24 06:16 105 H 114/76 94 L 11/02/24 06:01 53 L 96 11/02/24 06:01 105/68 L 11/02/24 06:00 67 96 11/02/24 05:46 110/69 11/02/24 05:46 68 96 11/02/24 05:31 115/84 11/02/24 05:31 60 97 11/02/24 05:30 58 L 96 11/02/24 05:16 107/78 L 11/02/24 05:16 50 L 97 11/02/24 05:01 60 96 11/02/24 05:01 123/78 11/02/24 05:00 65 95 11/02/24 05:00 11/02/24 04:45 169/144 H 11/02/24 04:45 59 L 95 11/02/24 04:32 124/88 11/02/24 04:32 68 93 L 11/02/24 04:30 96 H 81 L 11/02/24 04:16 71 96 11/02/24 04:16 103/84 L 11/02/24 04:00 120 H 11/02/24 04:00 127 H 30 H 96 11/02/24 04:00 106/76 L 11/02/24 04:00 51 L 98 11/02/24 03:45 60 95 11/02/24 03:45 96/68 L 11/02/24 03:31 120/101 H 11/02/24 03:31 59 L 94 L 11/02/24 03:30 56 L 94 L 11/02/24 03:16 111/81 11/02/24 03:16 65 106/76 L 96 11/02/24 03:01 117/95 H 11/02/24 03:01 61 95 11/02/24 03:00 60 96 11/02/24 03:00 11/02/24 02:46 117/88 11/02/24 02:46 56 L 94 L 11/02/24 02:44 11/02/24 02:42 61 11/02/24 02:39 66 11/02/24 02:31 50 L 95 11/02/24 02:31 86/59 L 11/02/24 02:30 56 L 96 11/02/24 02:16 96/78 L 11/02/24 02:16 63 96 11/02/24 02:01 54 L 95 11/02/24 02:01 111/74 11/02/24 02:00 54 L 96 11/02/24 01:46 63 95 11/02/24 01:46 105/85 L 11/02/24 01:31 112/81 11/02/24 01:31 51 L 93 L 11/02/24 01:30 60 19 111/74 92 L 11/02/24 01:15 116/94 H 95 11/02/24 01:15 68 95 11/02/24 01:01 122/78 11/02/24 01:01 44 L 96 11/02/24 01:00 11/02/24 01:00 60 95 11/02/24 00:46 54 L 36 H 97 11/02/24 00:46 112/73 11/02/24 00:31 102/79 L 11/02/24 00:31 56 L 21 95 11/02/24 00:30 52 L 42 H 97 11/02/24 00:15 121/86 11/02/24 00:15 63 30 H 110/84 96 11/02/24 00:00 150 H 11/02/24 00:00 138 H 20 121/86 91 L 11/02/24 00:00 53 L 23 96 11/02/24 00:00 147 H 35 H 96 11/01/24 23:46 65 32 H 95 11/01/24 23:46 99/71 L 11/01/24 23:31 66 34 H 96 11/01/24 23:31 106/80 L 11/01/24 23:30 71 21 96 11/01/24 23:16 97/70 L 11/01/24 23:16 49 L 43 H 96 11/01/24 23:01 131/64 11/01/24 23:01 63 43 H 95 11/01/24 23:00 65 32 H 97 11/01/24 23:00 11/01/24 22:46 69 18 93 L 11/01/24 22:46 99/72 L 11/01/24 22:46 11/01/24 22:30 115/75 11/01/24 22:30 89 28 H 91 L 11/01/24 22:16 98/76 L 11/01/24 22:16 63 18 97 11/01/24 22:06 145 H 11/01/24 22:06 150 H 11/01/24 22:01 103/83 L 11/01/24 22:01 63 28 H 95 11/01/24 22:00 80 28 H 94 L 11/01/24 21:45 103/74 L 11/01/24 21:45 68 39 H 96 11/01/24 21:30 93/65 L 11/01/24 21:30 48 L 14 91 L 11/01/24 21:17 95/72 L 11/01/24 21:17 68 24 103/83 L 95 11/01/24 21:01 102/68 L 11/01/24 21:01 82 29 H 93 L 11/01/24 21:00 11/01/24 21:00 78 23 93 L 11/01/24 20:46 107/77 L 11/01/24 20:46 70 36 H 94 L 11/01/24 20:31 88/61 L 11/01/24 20:31 69 21 93 L 11/01/24 20:30 68 17 94 L 11/01/24 20:18 64 20 94 L 11/01/24 20:18 142 H 20 114/63 93 L 11/01/24 20:00 130 H 11/01/24 20:00 68 38 H 93 L 11/01/24 19:56 140 H 92 L 11/01/24 19:46 108/69 L 11/01/24 19:46 129 H 17 87 L 11/01/24 19:43 75 15 86 L 11/01/24 19:43 94/52 L 11/01/24 19:33 192/156 H 11/01/24 19:33 74 20 93 L 11/01/24 19:30 75 18 93 L 11/01/24 19:16 96/66 L 11/01/24 19:16 76 33 H 97 11/01/24 19:00 94/62 L 11/01/24 19:00 63 17 98 11/01/24 19:00 135 H 20 96/66 L 92 L 11/01/24 18:45 110 H 11/01/24 18:45 68 35 H 97 11/01/24 18:45 83/65 L 11/01/24 18:42 11/01/24 18:31 91/71 L 11/01/24 18:31 73 39 H 96 11/01/24 18:30 11/01/24 18:30 111 H 11/01/24 18:30 60 41 H 96 11/01/24 18:15 92/69 L 11/01/24 18:15 62 41 H 96 11/01/24 18:00 92/69 L 11/01/24 18:00 74 33 H 96 11/01/24 17:01 106/71 L 11/01/24 17:01 124 H 38 H 96 11/01/24 17:00 11/01/24 16:46 116/65 11/01/24 16:46 75 39 H 96 11/01/24 16:30 89/70 L 11/01/24 16:30 68 44 H 96 11/01/24 16:15 69 28 H 95 11/01/24 16:15 107/73 L 11/01/24 16:00 97.2 F L 74 22 93 L 11/01/24 16:00 113/82 11/01/24 16:00 11/01/24 16:00 125 H 11/01/24 15:17 107/74 L 11/01/24 15:17 77 38 H 96 11/01/24 15:00 104/84 L 11/01/24 15:00 110 H 36 H 97 11/01/24 14:57 11/01/24 14:47 131 H 11/01/24 14:47 124 H 11/01/24 14:47 11/01/24 14:00 101/74 L 11/01/24 14:00 102 H 32 H 95 11/01/24 13:45 66 34 H 95 11/01/24 13:45 96/75 L 11/01/24 13:31 99/79 L 11/01/24 13:31 61 32 H 96 11/01/24 13:30 103 H 37 H 96 11/01/24 13:15 111/70 11/01/24 13:15 72 34 H 96 11/01/24 13:01 99 H 30 H 95 11/01/24 13:01 111/93 H 11/01/24 13:01 11/01/24 13:00 101 H 37 H 95 11/01/24 13:00 O2 Del Method O2 Flow Rate FiO2 11/02/24 12:01 11/02/24 12:00 Nasal Cannula 4 11/02/24 12:00 11/02/24 11:00 Nasal Cannula 11/02/24 11:00 Nasal Cannula 4 11/02/24 10:41 11/02/24 10:41 11/02/24 10:41 Nasal Cannula 4 11/02/24 10:03 Nasal Cannula 11/02/24 10:02 11/02/24 09:01 11/02/24 09:00 Nasal Cannula 4 11/02/24 09:00 Nasal Cannula 4 11/02/24 08:01 11/02/24 08:01 11/02/24 08:00 Nasal Cannula 5 11/02/24 08:00 11/02/24 07:46 11/02/24 07:30 Nasal Cannula 4 11/02/24 07:00 11/02/24 06:46 11/02/24 06:46 11/02/24 06:35 BiPAP 11/02/24 06:31 11/02/24 06:31 11/02/24 06:30 11/02/24 06:16 11/02/24 06:16 Nasal Cannula 4 11/02/24 06:01 11/02/24 06:01 11/02/24 06:00 11/02/24 05:46 11/02/24 05:46 11/02/24 05:31 11/02/24 05:31 11/02/24 05:30 11/02/24 05:16 11/02/24 05:16 11/02/24 05:01 11/02/24 05:01 11/02/24 05:00 11/02/24 05:00 BiPAP 11/02/24 04:45 11/02/24 04:45 11/02/24 04:32 11/02/24 04:32 11/02/24 04:30 11/02/24 04:16 11/02/24 04:16 11/02/24 04:00 11/02/24 04:00 BiPAP 40 11/02/24 04:00 11/02/24 04:00 11/02/24 03:45 11/02/24 03:45 11/02/24 03:31 11/02/24 03:31 11/02/24 03:30 11/02/24 03:16 11/02/24 03:16 BiPAP 40 11/02/24 03:01 11/02/24 03:01 11/02/24 03:00 11/02/24 03:00 BiPAP 11/02/24 02:46 11/02/24 02:46 11/02/24 02:44 40 11/02/24 02:42 11/02/24 02:39 11/02/24 02:31 11/02/24 02:31 11/02/24 02:30 11/02/24 02:16 11/02/24 02:16 11/02/24 02:01 11/02/24 02:01 11/02/24 02:00 11/02/24 01:46 11/02/24 01:46 11/02/24 01:31 11/02/24 01:31 11/02/24 01:30 11/02/24 01:15 Vapotherm 11/02/24 01:15 11/02/24 01:01 11/02/24 01:01 11/02/24 01:00 BiPAP 11/02/24 01:00 11/02/24 00:46 11/02/24 00:46 11/02/24 00:31 11/02/24 00:31 11/02/24 00:30 11/02/24 00:15 11/02/24 00:15 11/02/24 00:00 11/02/24 00:00 BiPAP 11/02/24 00:00 11/02/24 00:00 BiPAP 40 11/01/24 23:46 11/01/24 23:46 11/01/24 23:31 11/01/24 23:31 11/01/24 23:30 11/01/24 23:16 11/01/24 23:16 11/01/24 23:01 11/01/24 23:01 11/01/24 23:00 11/01/24 23:00 BiPAP 11/01/24 22:46 11/01/24 22:46 11/01/24 22:46 40 11/01/24 22:30 11/01/24 22:30 11/01/24 22:16 11/01/24 22:16 11/01/24 22:06 11/01/24 22:06 11/01/24 22:01 11/01/24 22:01 11/01/24 22:00 11/01/24 21:45 11/01/24 21:45 11/01/24 21:30 11/01/24 21:30 11/01/24 21:17 11/01/24 21:17 11/01/24 21:01 11/01/24 21:01 11/01/24 21:00 Nasal Cannula 4 11/01/24 21:00 11/01/24 20:46 11/01/24 20:46 11/01/24 20:31 11/01/24 20:31 11/01/24 20:30 11/01/24 20:18 11/01/24 20:18 11/01/24 20:00 11/01/24 20:00 11/01/24 19:56 Nasal Cannula 4 11/01/24 19:46 11/01/24 19:46 11/01/24 19:43 11/01/24 19:43 11/01/24 19:33 11/01/24 19:33 11/01/24 19:30 11/01/24 19:16 11/01/24 19:16 11/01/24 19:00 11/01/24 19:00 11/01/24 19:00 Nasal Cannula 4 11/01/24 18:45 11/01/24 18:45 11/01/24 18:45 11/01/24 18:42 BiPAP 11/01/24 18:31 11/01/24 18:31 11/01/24 18:30 40 11/01/24 18:30 11/01/24 18:30 11/01/24 18:15 11/01/24 18:15 11/01/24 18:00 11/01/24 18:00 BiPAP 11/01/24 17:01 11/01/24 17:01 BiPAP 11/01/24 17:00 BiPAP 11/01/24 16:46 11/01/24 16:46 11/01/24 16:30 11/01/24 16:30 11/01/24 16:15 11/01/24 16:15 11/01/24 16:00 BiPAP 11/01/24 16:00 11/01/24 16:00 BiPAP 11/01/24 16:00 11/01/24 15:17 11/01/24 15:17 11/01/24 15:00 11/01/24 15:00 BiPAP 11/01/24 14:57 BiPAP 11/01/24 14:47 11/01/24 14:47 11/01/24 14:47 40 11/01/24 14:00 11/01/24 14:00 BiPAP 11/01/24 13:45 11/01/24 13:45 11/01/24 13:31 11/01/24 13:31 11/01/24 13:30 11/01/24 13:15 11/01/24 13:15 11/01/24 13:01 11/01/24 13:01 11/01/24 13:01 40 11/01/24 13:00 BiPAP 11/01/24 13:00 BiPAP Intake and Output 11/01/24 11/02/24 11/02/24 23:59 07:59 15:59 Intake Total 829.507 / 6014.716 450 / 990 540 / 990 Output Total 455 / 715 375 / 700 325 / 700 Balance 374.507 / 5299.716 75 / 290 215 / 290 Intake: Intake, Oral Amount 180 / 180 440 / 440 Intake, Total IV Amount 399.507 / 3930.716 450 / 550 100 / 550 Piperacillin/Tazo 4.5 gm In 0.9 100 / 400 200 / 300 100 / 300 % Sodium Chloride 100 ml @ 200 mls/hr IV Q6H JAZZ[facility] Rx#:[id number] Vancomycin HCl 2,000 mg In 0.9 250 / 500 250 / 250 % Sodium Chloride 250 ml @ 125 mls/hr IV Q8H JAZZMINE Rx#:[id number] Infusion Intake 250 / 250 Vancomycin HCl 2,000 mg In 0.9 250 / 250 % Sodium Chloride 250 ml @ 125 mls/hr IV Q8H JAZZMINE Rx#:[id number] Output: Output, Urine Amount 0 / 0 Output, Urine Amount (Catheter) 455 / 715 375 / 700 325 / 700 Price 455 / 715 375 / 700 325 / 700 Other: Number of Unmeasured Voids 0 0 Weight 108.409 kg 108.409 kg Patient Weight 11/02/24 23:59 Weight 108.409 kg Laboratory Results - last 24 hr 11/01/24 12:27: Specimen Source Right radial, O2 % Bipap 18/8 60%, ABG pH 7.19 L*, ABG pCO2 86.4 H, ABG pO2 135.3 H, ABG HCO3 32.3 H, ABG Total CO2 34.9 H, ABG O2 Saturation 99, ABG Base Excess 4.1 H, Prosper Test Patient unable, Vent Rate 18 11/01/24 14:19: Specimen Source Right radial, O2 % Bipap 31/08 40%, ABG pH 7.26 L, ABG pCO2 73.7 H, ABG pO2 98.7, ABG HCO3 32.6 H, ABG Total CO2 34.8 H, ABG O2 Saturation 97, ABG Base Excess 5.5 H, Prosper Test Patient unable, Vent Rate 20 11/01/24 17:30: ABG pH 7.36, ABG pCO2 58.7 H, ABG pO2 90.1, ABG HCO3 32.0 H, ABG Total CO2 33.8 H, ABG O2 Saturation 97, ABG Base Excess 6.5 H 11/02/24 09:04: WBC 18.1 H, RBC 3.66 L, Hgb 11.2 L, Hct 36.4 L, MCV 99.5 H, MCH 30.6, MCHC 30.8 L, RDW 12.9, Plt Count 362, MPV 10.0, Neut % (Auto) 86.8 H, Lymph % (Auto) 6.4 L, Henderson % (Auto) 2.6, Eos % (Auto) 0.0 L, Baso % (Auto) 0.6, Neut # (Auto) 15.7 H, Lymph # (Auto) 1.2, Henderson # (Auto) 0.5, Eos # (Auto) 0.0, Baso # (Auto) 0.1, Total Counted 100, Neutrophils % (Manual) 90 H, Lymphocytes % (Manual) 7 L, Monocytes % (Manual) 3, Platelet Estimate Normal, RBC Morphology Normal, Sodium 140, Potassium 4.1, Chloride 101, Carbon Dioxide 37 H, Anion Gap 6.1, BUN 47 H D, Creatinine 1.50 H D, Estimated Creat Clear 72, Estimated GFR 47 L, Est GFR ( Amer) 56 L D, Glucose 177 H, Calcium 7.3 L, Phosphorus 3.9, Magnesium 2.9 H D, Total Bilirubin 0.2, AST 26 D, ALT 26, Alkaline Phosphatase 88, Total Protein 6.3, Albumin 3.1 L D, Globulin 3.2, Albumin/Globulin Ratio 1.0 L, Procalcitonin 0.176, Vancomycin Trough 33.0 H I & O for Labs for Last 24 Hours: Intake & Output 10/30/24 10/31/24 11/01/24 11/02/24 23:59 23:59 23:59 23:59 Intake Total 240 / 240 5914.716 / 6014.716 990 / 990 Output Total 725 / 825 700 / 715 700 / 700 Balance -485 / -585 5214.716 / 5299.716 290 / 290 Weight 102.058 kg 108.046 kg 108.409 kg Microbiology Reports for the Last 24 Hours: Microbiology 10/31/24 11:55 Blood Blood Culture - Preliminary NO GROWTH AFTER 48 HOURS 10/31/24 11:55 Blood Blood Culture - Preliminary NO GROWTH AFTER 48 HOURS 10/31/24 15:45 Anus CRE Surveillance Culture - Final Negative 11/01/24 21:26 Sputum - Expectorated Sputum Gram Stain - Final Constitutional: Present moderate distress, obese, chronically ill appearing and cooperative Head: Present atraumatic and normocephalic ENT: Present normal exam Respiratory: Present accessory muscle use, prolonged expiratory phase, rhonchi, wheezes and diminished air movement Cardiac: Present Tachycardia Comment:: irregularly irregular GI: Present soft, distention and normal bowel sounds; Absent tenderness Extremities: Present normal inspection and full ROM; Absent edema Skin: Present intact; Absent erythema Neuro: Present Grossly Intact, alert, awake and moves all extremities Assessment and Plan *Assessment and plan (1) Severe sepsis: Status: Acute Category: Medical Code(s): A41.9 - Sepsis, unspecified organism; R65.20 - Severe sepsis without septic shock (2) Acute on chronic hypoxic respiratory failure: Status: Acute Category: Medical Code(s): J96.21 - Acute and chronic respiratory failure with hypoxia (3) Acute exacerbation of chronic obstructive pulmonary disease: Status: Acute Category: Medical Code(s): J44.1 - Chronic obstructive pulmonary disease with (acute) exacerbation (4) Right lower lobe pneumonia: Status: Acute Category: Medical Code(s): J18.9 - Pneumonia, unspecified organism (5) Elevated troponin: Status: Acute Category: Medical Code(s): R79.89 - Other specified abnormal findings of blood chemistry (6) WISAM (obstructive sleep apnea): Problem Comment: Newly diagnosed mild WISAM with hypoxemia Status: Acute Category: Medical Code(s): G47.33 - Obstructive sleep apnea (adult) (pediatric) (7) History of smoking 30 or more pack years: Status: Chronic Category: Social Hx Code(s): Z87.891 - Personal history of nicotine dependence (8) Obesity (BMI 30.0-34.9): Status: Acute Category: Medical Code(s): E66.811 - Obesity, class 1 (9) Hypercapnic respiratory failure: Status: Acute Category: Medical Code(s): J96.92 - Respiratory failure, unspecified with hypercapnia (10) A-fib: Status: Acute Category: Medical Code(s): I48.91 - Unspecified atrial fibrillation Plan 69-year-old male with COPD on chronic oxygen at 2 L. Presents with worsening shortness of breath and dyspnea over the past 3 to 4 days. Found to be in severe sepsis with pneumonia and acute on chronic hypoxemic respiratory failure. Necessitating Vapotherm of 60% to maintain sats above 90%. Discussed case with ER physician, request admission for further management of pneumonia. I agreed to admit for further care. Received ceftriaxone and azithromycin in the ER. Due to severity of illness, admitted to ICU as his condition is serious, prognosis guarded. Tolerating BiPAP. Mentation improving. Gases showed improvement with decreased CO2. Will wear BiPAP while asleep and at night. Nasal cannula during the day. Continues to have A-fib with RVR. Cardiology and pulmonology consulted to assist with care. Will see patient in the morning. Problems addressed as follows: Severe sepsis Acute on chronic hypoxemic respiratory failure with hypercapnia secondary to right lower lobe pneumonia COPD exacerbation -Meeting sepsis criteria with tachycardia, tachypnea, leukocytosis, pneumonia on chest imaging. Severe criteria with endorgan damage given NSTEMI/elevation of troponin -Continue antibiotics, Vanco and Zosyn -Pulmonology consulted to assist with care due to hypercapnia. - Repeat chest x-ray this morning showing persistent right lung airspace disease. -DuoNebs scheduled every 4 hours. Levalbuterol available every 2 hours as needed for persistent wheeze and dyspnea - continue prednisone 40 mg daily -Concern for PE on initial eval of CTA, received 1 mg/kg Lovenox. Formal read does not show PE. Per my evaluation, patient has right lower and middle lobe consolidation consistent with pneumonia. -White count elevated at 18, hemoglobin 11.2. Pro-Ervin 0.176. Tolerating BiPAP with improvement in blood gas. More alert and oriented today - Repeat CBC, CMP, magnesium ordered for the morning -Blood and sputum cultures pending. A-fib RVR Hyperlipidemia NSTEMI - Tolerating amiodarone 400 mg p.o. twice daily. Finished bolus and drip. Initiate metoprolol succinate 50 mg this morning, pending response, will increase to 100 mg twice daily this evening. -IV metoprolol 5 mg tartrate as needed every 6 hours for heart rate greater than 110 -Continue Lovenox 1 mg/kg twice daily for anticoagulation -Echo ordered for the morning, cardiology consult placed. Will see patient in the morning -Continue to monitor on telemetry - Troponin elevated at 0.04, suspect ischemia and type II NSTEMI from demand. Kidney function at baseline with 47, creatinine 1.5. Magnesium 2.9, potassium 4.1. Given severity of illness hold home Lipitor, diclofenac, Lasix at this time. Reevaluate resumption as patient stabilizes Obesity complicates all aspects of his care Full code Cardiac diet TLOV
--- NOTE | 2024-11-02 20:00 | PC.NURSE ---
Addendum entered by Coleen Flowers RN 11/02/24 21:34: 2030 during the breathing treatment pt started having a coughing spell and no longer wanted to finish the treatment. MD aware Original Note: while completing beginning shift assessment stridor is noted in all nugent. Call was placed to MD. MD assessed pt. put in orders for steroids and breathing treatment.
[2024-11-02] MEDS: METOPROLOL SUCCINATE XL 100MG TABLET 100 MG PO (20:03)
[2024-11-02] MEDS: BUDESONIDE 0.5MG/2ML NEB 0.5 MG IH (20:38)
--- NOTE | 2024-11-02 21:15 | PC.NURSE ---
rt applied bipap mask pt tolerated for about 15 mins, pulled bipap off placed back on nasal cannula 6 liters by rt. notified
[2024-11-02] MEDS: VANCOMYCIN/WATER FOR INJ (PEG) 1.5 GM/300 ML PIGGYBACK IV (21:55)
[2024-11-02] MEDS: LORazepam 2MG/ML VIAL 0.5 MG IV (21:56)
[2024-11-02] MEDS: SODIUM CHLORIDE 0.9% 10ML VIAL 10 ML IV (21:57)
[2024-11-03] VITALS (33 sets, daily range): BP systolic 108–161; BP diastolic 77–97; PULSE 60–141; RESP 18–39; TEMP 36.6–36.7; O2SAT 90–96; BMI 33.0
[2024-11-03] MEDS: PIPERACILLIN/TAZO 4.5 GM in 0.9 % SODIUM CHLORIDE 100 ML IV ×5 (00:12→23:23)
[2024-11-03 00:44] LABS: POC Glucose,Bedside 146 (70-110)
--- NOTE | 2024-11-03 00:45 | PC.NURSE ---
[place] noise coming from pts room, pt is trying to get out of bed, pulling off his gown, trying to pull off leads, oxygen and pulse ox. pt refusing to wear bipap or nasal cannula at this time despite encouragment by multiple staff. pt became pale diaphoretic, tachypneic at 44 blood glucose was obtained. 146 is bgl. pt re oriented after multiple attemps, finally allowed rt to place nasal cannula back on and also allowed rt to finish breathing treatment. pt currently sitting up in bed 4 liters nasal cannula with sats over 90 respirations less than 30. bed alarm on
[2024-11-03] MEDS: ENOXAPARIN 120MG/0.8ML SYRINGE 110 MG SUBCUT ×2 (01:41→13:45)
[2024-11-03] MEDS: IPRATROPIUM BROMIDE 0.5 MG/2.5ML SOLUTION IH ×6 (02:20→21:28)
[2024-11-03] MEDS: LEVALBUTEROL 1.25MG/3ML NEB 1.25 MG IH ×6 (02:21→21:28)
--- NOTE | 2024-11-03 04:33 | ECG_ITS ---
APPROVED REPORT Exam: Resting ECG HR:120 bpm ECG Measurements Heart Rate 120 AXES QRSd 174 QRS 73 QT 367 T 128 QTc 439 Conclusion ATRIAL FIBRILLATION WITH RAPID VENTRICULAR RESPONSE LEFT BUNDLE BRANCH BLOCK [120+ ms QRS DURATION, 80+ ms Q/S IN V1/V2, 85+ ms R IN I/aVL/V5/V6] ABNORMAL ECG UNCONFIRMED REPORT Electronically signed by : Pablo Potter MD 11/03/2024 14:00:40
--- NOTE | 2024-11-03 06:00 | XR_ITS ---
PROCEDURE INFORMATION: Exam: XR Chest Exam date and time: 11/03/2024 5:50 AM Age: 69 years old Clinical indication: Wheezing; Additional info: Respiratory failure TECHNIQUE: Imaging protocol: Radiologic exam of the chest. Views: 1 view. COMPARISON: CR XR CHEST PORTABLE 11/02/2024 6:26 AM FINDINGS: Lungs: Right lung base airspace opacity. Pleural spaces: Right-sided pleural effusion. Heart/Mediastinum: Unremarkable. No cardiomegaly. Bones/joints: Unremarkable. IMPRESSION: Right lung base airspace opacity. Right-sided pleural effusion. No significant change from prior.
--- NOTE | 2024-11-03 06:00 | CA_ITS ---
APPROVED REPORT EXAM: Comprehensive 2D, Doppler, and color-flow Echocardiogram Flight Engineer Instructor: Kristen Morelos CRT Ht: 5 ft 11 in Wt: 239lbs BSA: 2.27 BP: 130/75 mmHg Indications: Atrial Fibrillation, resp failure, HTN, HLD, COPD, SOB, CPAP dependence, pneumonia, WISAM TDE pt up in bed due to SOB, Definity given Echo Enhancing Agent Indication: Endocardial border delineation Agent(s) / Amount(s) Used: Definity 2 cc Comments: Definity given 2D Dimensions LA Volume 54.30 mL LA Volume Index 23.30 mL/m2 (M/F) 16-34 M-Mode Dimensions RVDd 2.70 cm (0.9-2.6) LA Diam 2.85 cm (1.9-4.0) LVDd 4.39 cm (3.5-5.7) LVDs 3.89 cm (3.5-5.7) IVSd 2.07 cm (0.6-1.1) PWd 1.14 cm (0.6-1.1) EF (Teich) 24.90% FS 11.40% EDV (Teich) 87.20 mL TAPSE 1.46 (<1.7) ESV (Teich) 65.50 mL LV Diastology E Decel Time 173 (160-240 msec) E/A Ratio 1.84 MED A' 6.70 cm/s LAT A' 5.90 cm/s Aortic Valve AO Peak GR. 7.50 mmHg Mitral Valve MV A Velocity 40.0 (40-130 cm/s) E/A Ratio 1.84 Pulmonary Valve PV Peak Velocity 98.0 (50-150 cm/s) Tricuspid Valve TR P. Velocity 165.00 cm/s RAP Estimate 10.00 mmHg RVSP 20.80 mmHg Left Ventricle The left ventricle is normal size. Left ventricular systolic function is moderate to severely decreased. There is increased LV wall thickness. The septum is asynchronous. The distal and apical LV díaz are akinetic. Diastolic function is indeterminate. No left ventricle thrombus noted on this study. LVEF is 30%. Right Ventricle Right ventricle is mildly dilated. The right ventricular systolic function is normal. Atria The left atrium size is normal. The right atrium size is normal. There is no Doppler evidence of interatrial shunt. Aortic Valve Aortic valve is mildly thickened. Trace aortic regurgitation. There is no aortic valvular stenosis. Mitral Valve The mitral valve is normal in structure. Trace mitral regurgitation. Tricuspid Valve Tricuspid valve is grossly normal in structure and function. Trace tricuspid regurgitation. There is insufficient TR jet to estimate RVSP. Pulmonic Valve The pulmonary valve is normal in structure. Trace pulmonic regurgitation. Great Vessels The aortic root is normal in size. IVC is normal in size and collapses >50% with inspiration. Pericardium There is no pericardial effusion. Other Information Study Quality: Fair Conclusion Moderate to severe reduction global LV systolic function (LVEF 30%). The distal and apical LV díaz are akinetic. Mild RV dilation with normal RV function. No significant valvular stenosis or regurgitation. Electronically signed by : Shae Hood MD 11/03/2024 11:39:38
[2024-11-03] MEDS: BUDESONIDE 0.5MG/2ML NEB 0.5 MG IH ×2 (06:03→17:13)
--- NOTE | 2024-11-03 06:29 | PC.NURSE ---
pt ao x4 waxes and wanes orientation at times, pt currently on 4 liters nasal cannula, tolerating well with sats over 90%.pt tolerated bipap for approximately an hour. Pt has remained tachycardic with hr 100-150 Afib MD aware. Pt tachypnic respirations mid 20s to mid 40s at times of agitation. pt hasn't voiced any complaints to staff. Lung sounds diminished. Bed alarm on for pt safety. Call light within reach.
[2024-11-03 06:52] LABS: Basophils # 0.1 K/mm3 (0-0.2); Basophils % 0.4 % (0.1-2.0); Hematocrit 38.2 % (42.0-52.0); Hemoglobin 11.6 g/dL (14.1-18.0); Lymphocytes # 0.9 K/mm3 (0.7-4.5); Lymphocytes % 5.1 % (10-50); Mean Corpuscular HGB Conc 30.4 g/dL (31.8-35.4); Mean Corpuscular Hemoglobin 30.4 pg (27.0-31.2); Mean Platelet Volume 10.1 fl (7.4-10.4); Monocytes # 0.4 K/mm3 (0.1-1.0); Monocytes % 2.1 % (1.7-9.3); Neutrophils # 14.8 K/mm3 (1.8-7.8); Neutrophils % 89.2 % (37.0-80.0); Platelet Count 387 K/mm3 (142-424); Red Blood Count 3.82 M/mm3 (4.60-6.20); White Blood Count 16.6 K/mm3 (4.8-10.8)
[2024-11-03 06:56] LABS: Albumin Level 3.4 g/dl (3.5-5.0); Chloride 99 mmol/L (98-107); Sodium 142 mmol/L (136-145)
[2024-11-03 06:57] LABS: Potassium 5.1 mmoL/L (3.5-5.1)
[2024-11-03 06:58] LABS: MANUAL DIFFERENTIAL MANUAL DIFFERENTIAL (MANUAL DIFF)
[2024-11-03 06:59] LABS: Alanine Aminotransferase 25 U/L (12-78); Anion Gap 9.1 mEq/L (5-15); Aspartate Amino Transferase 30 U/L (17-59); Blood Urea Nitrogen 43 mg/dl (9-20); Carbon Dioxide 39 mmol/L (22.0-30.0); Creatinine Clearance Estimated 76 mL/min (50-200); Estimated Glomerular Filt Rate 50 ml/min (>60); GFR (African American) 61 ML/MIN (>60)
[2024-11-03 07:00] LABS: Alkaline Phosphatase 96 U/L (38-126); Bilirubin,Total 0.3 mg/dl (0.2-1.3); Calcium 8.2 mg/dl (8.4-10.2); Globulin 3.4 g/dL (1.3-3.2); Glucose 160 mg/dl (74-100); Total Protein,Serum 6.8 g/dl (6.3-8.2)
[2024-11-03 07:07] LABS: C-Reactive Protein 71.3 mg/L (0-4)
[2024-11-03 07:25] LABS: Lymphocytes % 7 % (10-50); Macrocytosis 1+; Neutrophils % 93 % (42-76); Platelet Estimate Normal; Total Cells Counted 100
[2024-11-03] MEDS: DEFINITY US ECHO CONTRAST 2ML INJ 2 MG IV (07:55)
[2024-11-03] MEDS: METHYLPREDNISOLONE SOD SUCC 40MG VIAL 40 MG IV ×2 (09:07→20:29)
[2024-11-03 09:08] LABS: Magnesium 2.9 mg/dl (1.6-2.3)
[2024-11-03] MEDS: AMIODARONE 200MG TABLET 400 MG PO (09:08)
[2024-11-03] MEDS: METOPROLOL SUCCINATE XL 100MG TABLET 100 MG PO ×2 (09:08→20:29)
[2024-11-03 09:26] LABS: Procalcitonin 0.129 ng/mL (0.0-2.0)
--- NOTE | 2024-11-03 09:48 | EXP.PULM.CON ---
History of Present Illness History of present illness: Mr. Poon is a 69-year-old male greater than [id number] smoking history COPD, chronic hypoxic respiratory failure prior history of right lower lobe pneumonia presented today worsening respiratory status hypercarbic respiratory failure pulmonary was called for further evaluation and management. Patient with progressively worsening respiratory's for 10 to 14 days prior to hospital admission with worsening cough productive phlegm. [facility] Disclaimer: The information contained in this section may have been updated after the patient was seen, as this information can be updated by other users. Medical History CPAP (continuous positive airway pressure) dependence Sleep apnea Chronic hypoxemic respiratory failure Dyspnea on exertion Pneumonia Abnormal screening CT of chest Screening for lung cancer Encounter for screening for malignant neoplasm of lung in current smoker with 30 pack year history or greater Dyspnea on exertion COPD mixed type History of smoking 30 or more pack years COPD (chronic obstructive pulmonary disease) Surgical History History of appendectomy Previous back surgery Family History Other No significant family history Social History (Updated 10/31/24 @ 16:08 by Seble Gamboa RN) Smoking Status: Former smoker alcohol intake: former substance use type: denies use current occupational status: disabled Travel in the last 8 weeks: None housing: apartment marital status: legally Have you lived/traveled outside US in past 30 days?: No Contact w/someone who lives/traveled outside US past 30 days?: No Exposure to someone with infectious disease in past 14 days?: No Do you have a fever (greater than 100.4 F or 38 C)?: No Have you tested positive for COVID-19: No Exposed to someone with COVID-19 in past 14 days?: No Do you have a sore throat?: No Do you have a cough?: No Do you have any weakness?: No Are you experiencing any nausea/vomitting?: No Do you have any diarrhea?: No Are you experiencing any unusual bleeding?: No Do you have any muscle aches/pain?: No Do you have any abdominal pain?: No Are you experiencing loss of taste or smell?: No Review of Systems Constitutional Constitutional: Reports anorexia, Reports body ache(s), Reports fatigue and Reports lethargy Eyes Eyes: Denies eye discharge, Denies dry eyes, Denies irritation and Denies itchy eyes ENT Ears, Nose, Mouth, and Throat: Denies epistaxis, Denies facial pain, Denies lip swelling and Denies throat swelling *Cardiovascular Cardiovascular: Reports dyspnea and Reports dyspnea on exertion *Respiratory Respiratory: Reports change in phlegm color, Reports chest congestion, Reports cough, Reports dyspnea, Reports dyspnea on exertion, Reports excessive phlegm production and Reports wheezing *Gastrointestinal Gastrointestinal: Denies abdominal pain, Denies belching and Denies cramping *Musculoskeletal Musculoskeletal: Reports back pain, Reports myalgias and Reports other (No small joint swelling or Pain) Psychiatric Psychiatric: Denies homicidal ideation and Denies suicidal ideation Endocrine Endocrine: Reports fatigue and Denies heat intolerance Hematologic/Lymphatic Hematologic/Lymphatic: Denies easy bleeding and Denies lymphadenopathy Allergic/Immunologic Allergic/Immunologic: Denies itchy eyes, Denies lip swelling, Denies throat swelling and Reports wheezing Pulmonology Exam Inpatient Vital signs and Labs for Last 24 Hours: Temp Pulse Resp BP Pulse Ox O2 Del Method O2 Flow Rate 98.1 F 131 H 34 H 120/81 93 L Nasal Cannula 4 11/03/24 08:02 11/03/24 09:41 11/03/24 08:02 11/03/24 08:02 11/03/24 08:02 11/03/24 08:02 11/03/24 08:02 FiO2 40 11/02/24 22:00 Laboratory Results - last 24 hr 11/02/24 09:04: WBC 18.1 H, RBC 3.66 L, Hgb 11.2 L, Hct 36.4 L, MCV 99.5 H, MCH 30.6, MCHC 30.8 L, RDW 12.9, Plt Count 362, MPV 10.0, Neut % (Auto) 86.8 H, Lymph % (Auto) 6.4 L, [place] % (Auto) 2.6, Eos % (Auto) 0.0 L, Baso % (Auto) 0.6, Neut # (Auto) 15.7 H, Lymph # (Auto) 1.2, [place] # (Auto) 0.5, Eos # (Auto) 0.0, Baso # (Auto) 0.1, Total Counted 100, Neutrophils % (Manual) 90 H, Lymphocytes % (Manual) 7 L, Monocytes % (Manual) 3, Platelet Estimate Normal, RBC Morphology Normal, Sodium 140, Potassium 4.1, Chloride 101, Carbon Dioxide 37 H, Anion Gap 6.1, BUN 47 H D, Creatinine 1.50 H D, Estimated Creat Clear 72, Estimated GFR 47 L, Est GFR ( Amer) 56 L D, Glucose 177 H, Calcium 7.3 L, Phosphorus 3.9, Magnesium 2.9 H D, Total Bilirubin 0.2, AST 26 D, ALT 26, Alkaline Phosphatase 88, Total Protein 6.3, Albumin 3.1 L D, Globulin 3.2, Albumin/Globulin Ratio 1.0 L, Procalcitonin 0.176, Vancomycin Trough 33.0 H 11/03/24 00:34: POC Glucose 146 H 11/03/24 05:31: WBC 16.6 H, RBC 3.82 L, Hgb 11.6 L, Hct 38.2 L, MCV 100.0 H, MCH 30.4, MCHC 30.4 L, RDW 13.0, Plt Count 387, MPV 10.1, Neut % (Auto) 89.2 H, Lymph % (Auto) 5.1 L, [place] % (Auto) 2.1, Eos % (Auto) 0.0 L, Baso % (Auto) 0.4, Neut # (Auto) 14.8 H, Lymph # (Auto) 0.9, [place] # (Auto) 0.4, Eos # (Auto) 0.0, Baso # (Auto) 0.1, Total Counted 100, Neutrophils % (Manual) 93 H, Lymphocytes % (Manual) 7 L, Platelet Estimate Normal, Macrocytosis 1+, Sodium 142, Potassium 5.1 D, Chloride 99, Carbon Dioxide 39 H, Anion Gap 9.1, BUN 43 H, Creatinine 1.40 H, Estimated Creat Clear 76, Estimated GFR 50 L, Est GFR ( Amer) 61, Glucose 160 H, Calcium 8.2 L, Phosphorus 4.0, Magnesium 2.9 H, Total Bilirubin 0.3, AST 30, ALT 25, Alkaline Phosphatase 96, C-Reactive Protein 71.3 H, Total Protein 6.8, Albumin 3.4 L, Globulin 3.4 H, Albumin/Globulin Ratio 1.0 L, Procalcitonin 0.129 I & O for Labs for Last 24 Hours: Intake & Output 10/31/24 11/01/24 11/02/24 11/03/24 23:59 23:59 23:59 23:59 Intake Total 240 / 240 5914.716 / 6014.716 1430 / 1680 590 / 590 Output Total 725 / 825 700 / 715 1125 / 1125 600 / 600 Balance -485 / -585 5214.716 / 5299.716 305 / 555 -10 / -10 Weight 225 lb 238 lb 3.2 oz 239 lb 235 lb 12.8 oz Microbiology Reports for the Last 24 Hours: Microbiology 11/01/24 21:26 Sputum - Expectorated Sputum Gram Stain - Final 11/01/24 21:26 Sputum - Expectorated Sputum Sputum Culture - Preliminary 10/31/24 11:55 Blood Blood Culture - Preliminary NO GROWTH AFTER 48 HOURS 10/31/24 11:55 Blood Blood Culture - Preliminary NO GROWTH AFTER 48 HOURS 10/31/24 15:45 Anus CRE Surveillance Culture - Final Negative Constitutional: Present moderate distress Head: Present normocephalic and atraumatic ENT: Present normal exam, normal oropharynx and mucous membranes moist Neck: Present normal inspection and full ROM Respiratory: Present prolonged expiratory phase, respiratory distress, wheezes and able to speak in complete sentences Cardiac: Present S1/S2, Tachycardia and radial pulses present GI: Present soft and distention; Absent tenderness or guarding Skin: Present intact; Absent cyanosis or jaundice Neuro: Present alert, awake and oriented x 3 Extremities: Present normal inspection; Absent clubbing or cyanosis Psychiatric: Present normal affect and cooperative Meds Home Medications and Allergies Home Medications ?Medication ?Instructions ?Recorded ?Confirmed ?Type albuterol sulfate 90 mcg/actuation 2 inh inhalation QIDP PRN 10/31/24 10/31/24 History aerosol inhaler shortness of breath or wheezing atorvastatin 40 mg tablet 40 mg PO DAILY 10/31/24 10/31/24 History diclofenac sodium 75 mg 75 mg PO BID 10/31/24 10/31/24 History tablet,delayed release furosemide 20 mg tablet 20 mg PO BID 10/31/24 10/31/24 History potassium chloride 10 mEq 10 meq PO TID 10/31/24 10/31/24 History tablet,extended release(part/cryst) New Prescriptions to Start Prescriptions: Allergies Allergy/AdvReac Type Severity Reaction Status Date / Time No Known Allergies Allergy Verified 03/20/23 06:30 Results Laboratory Findings 11/03/24 05:31 11/03/24 05:31 ABG ABG pH 7.36 mmol/L (7.35-7.45) 11/01/24 17:30 ABG pCO2 58.7 mmhg (35.0-45.0) H 11/01/24 17:30 ABG pO2 90.1 mmhg (80-100) 11/01/24 17:30 ABG O2 Saturation 97 % (90-100) 11/01/24 17:30 Abnormal lab findings: Abnormal Labs 10/31/24 10/31/24 11/01/24 11:16 11:18 00:43 WBC 16.4 H RBC 4.39 L Hgb 13.4 L Hct MCV 97.7 H MCHC 31.2 L Neut % (Auto) Lymph % (Auto) Eos % (Auto) Neut # (Auto) 12.5 H [place] # (Auto) 1.4 H Neutrophils % (Manual) 85 H Lymphocytes % (Manual) ABG pH 7.28 L ABG pCO2 82.3 H ABG pO2 ABG HCO3 38.2 H ABG Total CO2 40.7 H ABG Base Excess 11.5 H VBG pH VBG pCO2 78.3 H VBG HCO3 40.1 H VBG Total CO2 42.5 H VBG Base Excess 14.1 H VBG Lactic Acid 2.1 H Chloride 91 L Carbon Dioxide 39 H BUN 26 H Creatinine Estimated GFR Est GFR ( Amer) Glucose 190 H POC Glucose Calcium Magnesium Alkaline Phosphatase 133 H Troponin I 0.04 H C-Reactive Protein NT-Pro-B Natriuret Pep Total Protein 8.3 H D Albumin Globulin 4.4 H Albumin/Globulin Ratio 0.9 L Vancomycin Trough 11/01/24 11/01/24 11/01/24 01:15 04:36 04:45 WBC 16.9 H RBC 3.93 L Hgb 12.1 L Hct 39.2 L MCV 99.7 H MCHC 30.9 L Neut % (Auto) Lymph % (Auto) Eos % (Auto) 0.0 L Neut # (Auto) 13.3 H Howard # (Auto) Neutrophils % (Manual) 79 H Lymphocytes % (Manual) ABG pH ABG pCO2 ABG pO2 ABG HCO3 ABG Total CO2 ABG Base Excess VBG pH 7.23 L VBG pCO2 76.4 H VBG HCO3 31.5 H VBG Total CO2 33.8 H VBG Base Excess 4.0 H VBG Lactic Acid Chloride 95 L Carbon Dioxide 36 H BUN 34 H D Creatinine Estimated GFR Est GFR ( Amer) Glucose 226 H POC Glucose Calcium 8.2 L Magnesium 2.8 H 3.5 H D Alkaline Phosphatase Troponin I C-Reactive Protein NT-Pro-B Natriuret Pep 393 H Total Protein Albumin Globulin 3.9 H Albumin/Globulin Ratio 0.9 L Vancomycin Trough 11/01/24 11/01/24 11/01/24 12:27 14:19 17:30 WBC RBC Hgb Hct MCV MCHC Neut % (Auto) Lymph % (Auto) Eos % (Auto) Neut # (Auto) [place] # (Auto) Neutrophils % (Manual) Lymphocytes % (Manual) ABG pH 7.19 L* 7.26 L ABG pCO2 86.4 H 73.7 H 58.7 H ABG pO2 135.3 H ABG HCO3 32.3 H 32.6 H 32.0 H ABG Total CO2 34.9 H 34.8 H 33.8 H ABG Base Excess 4.1 H 5.5 H 6.5 H VBG pH VBG pCO2 VBG HCO3 VBG Total CO2 VBG Base Excess VBG Lactic Acid Chloride Carbon Dioxide BUN Creatinine Estimated GFR Est GFR ( Amer) Glucose POC Glucose Calcium Magnesium Alkaline Phosphatase Troponin I C-Reactive Protein NT-Pro-B Natriuret Pep Total Protein Albumin Globulin Albumin/Globulin Ratio Vancomycin Trough 11/02/24 11/03/24 11/03/24 09:04 00:34 05:31 WBC 18.1 H 16.6 H RBC 3.66 L 3.82 L Hgb 11.2 L 11.6 L Hct 36.4 L 38.2 L MCV 99.5 H 100.0 H MCHC 30.8 L 30.4 L Neut % (Auto) 86.8 H 89.2 H Lymph % (Auto) 6.4 L 5.1 L Eos % (Auto) 0.0 L 0.0 L Neut # (Auto) 15.7 H 14.8 H Howard # (Auto) Neutrophils % (Manual) 90 H 93 H Lymphocytes % (Manual) 7 L 7 L ABG pH ABG pCO2 ABG pO2 ABG HCO3 ABG Total CO2 ABG Base Excess VBG pH VBG pCO2 VBG HCO3 VBG Total CO2 VBG Base Excess VBG Lactic Acid Chloride Carbon Dioxide 37 H 39 H BUN 47 H D 43 H Creatinine 1.50 H D 1.40 H Estimated GFR 47 L 50 L Est GFR ( Amer) 56 L D Glucose 177 H 160 H POC Glucose 146 H Calcium 7.3 L 8.2 L Magnesium 2.9 H D 2.9 H Alkaline Phosphatase Troponin I C-Reactive Protein 71.3 H NT-Pro-B Natriuret Pep Total Protein Albumin 3.1 L D 3.4 L Globulin 3.4 H Albumin/Globulin Ratio 1.0 L 1.0 L Vancomycin Trough 33.0 H Assessment and Plan *Assessment and plan (1) Acute on chronic hypoxic respiratory failure: Status: Acute Category: Medical Code(s): J96.21 - Acute and chronic respiratory failure with hypoxia (2) Hypercapnic respiratory failure: Status: Acute Category: Medical Code(s): J96.92 - Respiratory failure, unspecified with hypercapnia (3) Pneumonia: Status: Chronic Qualifiers: Pneumonia type: due to unspecified organism Laterality: right Lung location: lower lobe of lung Qualified Code(s): J18.9 - Pneumonia, unspecified organism Category: Medical Code(s): J18.9 - Pneumonia, unspecified organism Plan Mr. Poon is a 69-year-old male greater than [id number] smoking history COPD, chronic hypoxic respiratory failure prior history of right lower lobe pneumonia presented today worsening respiratory status hypercarbic respiratory failure pulmonary was called for further evaluation and management. Patient with progressively worsening respiratory's for 10 to 14 days prior to hospital admission with worsening cough productive phlegm. CTA upon admission no evidence of pulmonary embolism, right middle and lower lobe airspace disease (predominant right lower lobe). Blood gas upon admission with a pH of 7.19 and pCO2 86.4severe hypercarbic respiratory failure needing noninvasive ventilatory therapy upon admission. Chest x-ray from this morning reviewed, improvement in the noted right lower lobe consolidative changes. Comprehensive respiratory viral PCR panel negative. Afebrile. Hemodynamically stable. Leukocytosis improving. On examination patient does not appear to be in any severe respiratory distress. Bilateral wheezing noted on auscultation. On nasal cannula saturating 90% and above. Blood cultures no growth 48 hours. Sputum culture preliminary no reportable results Plan: Wean antibiotics levofloxacin pending final sputum culture results. Will repeat sputum cultures again today. Recommend speech and swallow evaluation DuoNebs every 4 hours along with Pulmicort Q12 scheduled Continue oxygen supplementation via nasal cannula to maintain O2 saturation goal of 90% and above
[2024-11-03] MEDS: VANCOMYCIN/WATER FOR INJ (PEG) 1.5 GM/300 ML PIGGYBACK IV ×2 (10:36→21:46)
--- NOTE | 2024-11-03 10:44 | P.CONCA_ITS ---
History of Present Illness History of Present Illness Consult date: 11/03/24 Requesting physician: Yg Licea Chief complaint: SOA Additional Medical History:: 1. HTN 2. Hyperlipidemia -on statin 3. COPD -Ex smoker 4. A. fib with RVR, new in setting of pneumonia, sepsis and acute on chronic hypoxemic resp failure. 10/2024 History of present illness: Mr. Poon is a 69-year-old male with history of hypertension, hyperlipidemia, COPD on 2 L chronically. Presented to the ER with complaint of worsening shortness of breath over the past 3 to 4 days. States he has developed some chills and cough. Cough has become productive. Denies nausea or vomiting. Denies chest pain. Son is with him states he has been very weak and having a difficult time breathing. Patient is fatigued but alert manage. On initial workup in the ER, patient was tachypneic with respiratory rate in the 50s and tachycardic with heart rate above 100. Initial labs show white count of 16.4. Chest CT with right middle and lower lobe pneumonia/airspace disease. Detectable troponin at 0.04. VBG with normal pH of 7.33, pCO2 of 78 on VBG. Medicine consulted for admission and further management of acute on chronic hypoxemic respiratory failure with sepsis and pneumonia In the ER, patient received DuoNebs, Decadron, IV magnesium with some improvement in air movement. Still appears to be in moderate distress with a tachypnea. On evaluation after arriving to the ICU, son is at bedside helps supplement history. States patient wants to be full code. Son is his surrogate decision-maker. Wears 2 L oxygen chronically. No longer smokes. The above per Dr. Licea Cardiology consulted for assistance in A. fib with RVR and suspected type II NSTEMI. Heart score of 7 with risk of MACE at 50-65%. [facility] Disclaimer: The information contained in this section may have been updated after the p atient was seen, as this information can be updated by other users. Medical History CPAP (continuous positive airway pressure) dependence Sleep apnea Chronic hypoxemic respiratory failure Dyspnea on exertion Pneumonia Abnormal screening CT of chest Screening for lung cancer Encounter for screening for malignant neoplasm of lung in current smoker with 30 pack year history or greater Dyspnea on exertion COPD mixed type History of smoking 30 or more pack years COPD (chronic obstructive pulmonary disease) Surgical History History of appendectomy Previous back surgery Family History Other No significant family history Social History (Updated 10/31/24 @ 16:08 by Seble Gamboa RN) Smoking Status: Former smoker alcohol intake: former substance use type: denies use current occupational status: disabled Travel in the last 8 weeks: None housing: apartment marital status: legally Have you lived/traveled outside [place] in past 30 days?: No Contact w/someone who lives/traveled outside US past 30 days?: No Exposure to someone with infectious disease in past 14 days?: No Do you have a fever (greater than 100.4 F or 38 C)?: No Have you tested positive for COVID-19: No Exposed to someone with COVID-19 in past 14 days?: No Do you have a sore throat?: No Do you have a cough?: No Do you have any weakness?: No Are you experiencing any nausea/vomitting?: No Do you have any diarrhea?: No Are you experiencing any unusual bleeding?: No Do you have any muscle aches/pain?: No Do you have any abdominal pain?: No Are you experiencing loss of taste or smell?: No Review of Systems Review of Systems Review of systems:: pertinent systems reviewed and negative unless documented below *Cardiovascular Cardiovascular: Denies chest pain, Reports dyspnea and Reports dyspnea on exertion *Respiratory Respiratory: Reports dyspnea and Reports dyspnea on exertion Exam Data for Last 24 hours Vital signs and Labs for Last 24 Hours: Temp Pulse Resp BP Pulse Ox O2 Del Method O2 Flow Rate 98.1 F 131 H 34 H 120/81 93 L Nasal Cannula 5 11/03/24 08:02 11/03/24 09:41 11/03/24 08:02 11/03/24 08:02 11/03/24 08:02 11/03/24 09:00 11/03/24 09:00 FiO2 40 11/02/24 22:00 Laboratory Results - last 24 hr 11/03/24 00:34: POC Glucose 146 H 11/03/24 05:31: WBC 16.6 H, RBC 3.82 L, Hgb 11.6 L, Hct 38.2 L, MCV 100.0 H, MCH 30.4, MCHC 30.4 L, RDW 13.0, Plt Count 387, MPV 10.1, Neut % (Auto) 89.2 H, Lymph % (Auto) 5.1 L, [place] % (Auto) 2.1, Eos % (Auto) 0.0 L, Baso % (Auto) 0.4, Neut # (Auto) 14.8 H, Lymph # (Auto) 0.9, [place] # (Auto) 0.4, Eos # (Auto) 0.0, Baso # (Auto) 0.1, Total Counted 100, Neutrophils % (Manual) 93 H, Lymphocytes % (Manual) 7 L, Platelet Estimate Normal, Macrocytosis 1+, Sodium 142, Potassium 5.1 D, Chloride 99, Carbon Dioxide 39 H, Anion Gap 9.1, BUN 43 H, Creatinine 1.40 H, Estimated Creat Clear 76, Estimated GFR 50 L, Est GFR ( Amer) 61, Glucose 160 H, Calcium 8.2 L, Phosphorus 4.0, Magnesium 2.9 H, Total Bilirubin 0.3, AST 30, ALT 25, Alkaline Phosphatase 96, C-Reactive Protein 71.3 H, Total Protein 6.8, Albumin 3.4 L, Globulin 3.4 H, Albumin/Globulin Ratio 1.0 L, Procalcitonin 0.129 I & O for Last 24 hours: Intake & Output 10/31/24 11/01/24 11/02/24 11/03/24 11:59 11:59 11:59 11:59 Intake Total 4975.209 / 4975.209 2069.507 / 2069.507 1130 / 1130 Output Total 955 / 955 1170 / 1170 1025 / 1025 Balance 4020.209 / 4020.209 899.507 / 899.507 105 / 105 Weight 225 lb 238 lb 3.2 oz 239 lb 235 lb 12.8 oz Microbiology Reports for the Last 24 Hours: Microbiology 11/01/24 21:26 Sputum - Expectorated Sputum Gram Stain - Final 11/01/24 21:26 Sputum - Expectorated Sputum Sputum Culture - Preliminary 10/31/24 11:55 Blood Blood Culture - Preliminary NO GROWTH AFTER 48 HOURS 10/31/24 11:55 Blood Blood Culture - Preliminary NO GROWTH AFTER 48 HOURS 10/31/24 15:45 Anus CRE Surveillance Culture - Final Negative Meds Home Medications and Allergies Home Medications ?Medication ?Instructions ?Recorded ?Confirmed ?Type albuterol sulfate 90 mcg/actuation 2 inh inhalation QIDP PRN 10/31/24 10/31/24 History aerosol inhaler shortness of breath or wheezing atorvastatin 40 mg tablet 40 mg PO DAILY 10/31/24 10/31/24 History diclofenac sodium 75 mg 75 mg PO BID 10/31/24 10/31/24 History tablet,delayed release furosemide 20 mg tablet 20 mg PO BID 10/31/24 10/31/24 History potassium chloride 10 mEq 10 meq PO TID 10/31/24 10/31/24 History tablet,extended release(part/cryst) New Prescriptions to Start Prescriptions: Allergies Allergy/AdvReac Type Severity Reaction Status Date / Time No Known Allergies Allergy Verified 03/20/23 06:30 Assessment and Plan *Assessment and plan (1) A-fib: Status: Acute Qualifiers: Atrial fibrillation type: unspecified Qualified Code(s): I48.91 - Unspecified atrial fibrillation Category: Medical Code(s): I48.91 - Unspecified atrial fibrillation (2) Acute on chronic hypoxic respiratory failure: Status: Acute Category: Medical Code(s): J96.21 - Acute and chronic respiratory failure with hypoxia (3) Right lower lobe pneumonia: Status: Acute Qualifiers: Pneumonia type: due to unspecified organism Qualified Code(s): J18.9 - Pneumonia, unspecified organism Category: Medical Code(s): J18.9 - Pneumonia, unspecified organism (4) Elevated troponin: Status: Acute Category: Medical Code(s): R79.89 - Other specified abnormal findings of blood chemistry (5) HTN (hypertension): Status: Acute Qualifiers: Hypertension type: primary hypertension Qualified Code(s): I10 - Essential (primary) hypertension Category: Medical Code(s): I10 - Essential (primary) hypertension (6) Hyperlipidemia: Status: Acute Qualifiers: Hyperlipidemia type: mixed hyperlipidemia Qualified Code(s): E78.2 - Mixed hyperlipidemia Category: Medical Code(s): E78.5 - Hyperlipidemia, unspecified Plan 1. Acute on chronic hypoxemic resp failure with sepsis related to bilateral pneumonia (right greater than left) -on piperacillin/tazobactam, Vancomycin and steroids -on vapotherm -pulmonary consulted -No PE on chest CTA -BNP 393 on admission 2. A. fib with RVR -on metoprolol succ 100 mg BID (increased overnight). Increase as BP allows -on amiodarone oral after IV loaded this weekend -on Lovenox 110 mg Q12 hrs 3. Type II NSTEMI, likely due resp issues -heart score of 7 (mod suspicion, EKG non-specific due to LBBB, age, >3 CRF's, elevated trop) -add aspirin -continue lovenox -check echo now and may need to repeat when HR < 100 bpm -CRP 71.3 4. Hypertension -controlled 5. Hyperlipidemia -check lipids prior to discharge -statin on hold for now 6. LOYD with Cr up to 1.5 -down to 1.4 today Plan 1. Echo today shows EF 30% with distal and apical LV díaz akinetic. No significant valve disease. Mild RV enlargement with normal fxn. 2. In light of reduced EF, net positive fluid status and right sided pleural ef fusion on CXR with tachypnea, would repeat diuretic once for suspected HFrEF. 3. Follow renal functions closely. 4. Timing of further workup (cath) pending respiratory improvement 5. Since chronicity of amiodarone unknown and we are unsure of possible left atrial thrombus, will stop amiodarone for now. Use metoprolol and digoxin for rate control with consideration of restoring rhythm in the future when pulmonary status back to baseline.
[2024-11-03] MEDS: SODIUM CHLORIDE 3% 15ML NEB 3 ML IH (13:05)
[2024-11-03] MEDS: BUMETANIDE 1MG/4ML VIAL 1 MG IV ×2 (13:24→13:26)
[2024-11-03] MEDS: DIGOXIN 0.25MG/ML 2ML AMPUL 250 MCG IV (13:25)
--- NOTE | 2024-11-03 15:15 | ECG_ITS ---
APPROVED REPORT Exam: Resting ECG HR:74 bpm ECG Measurements Heart Rate 74 AXES ID 193 P 81 QRSd 165 QRS 60 QT 394 T 120 QTc 422 Conclusion SINUS RHYTHM LEFT BUNDLE BRANCH BLOCK [120+ ms QRS DURATION, 80+ ms Q/S IN V1/V2, 85+ ms R IN I/aVL/V5/V6] ABNORMAL ECG UNCONFIRMED REPORT Electronically signed by : Pablo Potter MD 11/05/2024 08:51:34
--- NOTE | 2024-11-03 15:57 | PC.NURSE ---
RESP CARE NOTE: Sputum specimen hand delivered to lab.
--- NOTE | 2024-11-03 17:05 | PC.NURSE ---
house notified of patient status change from step down to medsurg. stated pt could be moved during the night or tomorrow morning depending on hospital census.
--- NOTE | 2024-11-03 19:32 | P.PN_ITS ---
Subjective *Date: 11/03/24 *Time: 22:08 Interval history: Patient more interactive today. Tolerating BiPAP overnight. Weaned to 4 L oxygen this morning when off BiPAP. Answering questions appropriately. Still in A-fib RVR this morning, cardiology evaluating today. Family at bedside and updated of plan. Medical Exam Vital signs and Labs for Last 24 Hours: Vital Signs Temp Pulse Pulse Resp BP BP Pulse Ox 11/03/24 19:00 81 38 H 149/77 H 91 L 11/03/24 19:00 11/03/24 17:30 84 20 96 11/03/24 17:23 83 11/03/24 17:23 82 11/03/24 17:23 90 L 11/03/24 17:00 84 22 161/94 H 92 L 11/03/24 17:00 11/03/24 16:00 76 11/03/24 15:00 75 19 152/95 H 91 L 11/03/24 15:00 11/03/24 14:30 60 37 H 95 11/03/24 14:00 112 H 93 L 11/03/24 14:00 105 H 18 133/97 H 92 L 11/03/24 13:25 127 H 11/03/24 13:05 140 H 18 11/03/24 13:02 130 H 11/03/24 13:02 133 H 11/03/24 13:00 11/03/24 12:01 97.9 F 77 32 H 108/86 L 94 L 11/03/24 12:00 121 H 11/03/24 10:44 11/03/24 10:00 132 H 39 H 125/85 93 L 11/03/24 09:41 131 H 11/03/24 09:41 132 H 11/03/24 09:00 11/03/24 08:02 98.1 F 133 H 34 H 120/81 93 L 11/03/24 08:00 141 H 93 L 11/03/24 08:00 134 H 11/03/24 07:16 128 H 30 H 108/80 L 94 L 11/03/24 06:34 11/03/24 06:06 131 H 11/03/24 06:06 129 H 11/03/24 06:06 94 L 11/03/24 05:56 129 H 38 H 109/86 L 93 L 11/03/24 04:37 98.0 F 11/03/24 04:36 11/03/24 04:11 120 H 11/03/24 04:00 112 H 32 H 127/97 H 90 L 11/03/24 03:00 11/03/24 02:26 131 H 11/03/24 02:25 130 H 11/03/24 02:25 11/03/24 01:55 126 H 24 140/84 92 L 11/03/24 01:49 133 H 95 11/03/24 01:00 11/03/24 00:23 110 H 11/03/24 00:00 97.8 F 11/03/24 00:00 127 H 22 112/87 95 11/03/24 00:00 128 H 22 112/87 94 L 11/02/24 23:00 11/02/24 22:00 11/02/24 22:00 126 H 24 119/75 92 L 11/02/24 21:00 11/02/24 20:38 140 H 11/02/24 20:38 136 H 11/02/24 20:12 140 H 11/02/24 20:00 97.8 F 141 H 26 H 114/72 95 11/02/24 20:00 130 H 95 O2 Del Method O2 Flow Rate FiO2 11/03/24 19:00 11/03/24 19:00 Nasal Cannula 4 11/03/24 17:30 11/03/24 17:23 11/03/24 17:23 11/03/24 17:23 Nasal Cannula 3 11/03/24 17:00 11/03/24 17:00 Nasal Cannula 4 11/03/24 16:00 11/03/24 15:00 11/03/24 15:00 Nasal Cannula 4 11/03/24 14:30 11/03/24 14:00 Nasal Cannula 5 11/03/24 14:00 Nasal Cannula 4 11/03/24 13:25 11/03/24 13:05 11/03/24 13:02 11/03/24 13:02 11/03/24 13:00 Nasal Cannula 5 11/03/24 12:01 Nasal Cannula 4 11/03/24 12:00 11/03/24 10:44 Nasal Cannula 5 11/03/24 10:00 Nasal Cannula 4 11/03/24 09:41 11/03/24 09:41 11/03/24 09:00 Nasal Cannula 5 11/03/24 08:02 Nasal Cannula 4 11/03/24 08:00 Nasal Cannula 5 11/03/24 08:00 11/03/24 07:16 Nasal Cannula 4 11/03/24 06:34 Nasal Cannula 4 11/03/24 06:06 11/03/24 06:06 11/03/24 06:06 Nasal Cannula 4 11/03/24 05:56 Nasal Cannula 4 11/03/24 04:37 11/03/24 04:36 Nasal Cannula 4 11/03/24 04:11 11/03/24 04:00 Nasal Cannula 4 11/03/24 03:00 Nasal Cannula 4 11/03/24 02:26 11/03/24 02:25 11/03/24 02:25 Nasal Cannula 4 11/03/24 01:55 Nasal Cannula 5 11/03/24 01:49 Nasal Cannula 5 11/03/24 01:00 Nasal Cannula 4 11/03/24 00:23 11/03/24 00:00 11/03/24 00:00 Nasal Cannula 6 11/03/24 00:00 Nasal Cannula 6 11/02/24 23:00 Nasal Cannula 6 11/02/24 22:00 40 11/02/24 22:00 Nasal Cannula 6 11/02/24 21:00 BiPAP 11/02/24 20:38 11/02/24 20:38 11/02/24 20:12 11/02/24 20:00 Nasal Cannula 4 11/02/24 20:00 Nasal Cannula 4 Intake and Output 11/03/24 11/03/24 11/03/24 07:59 15:59 23:59 Intake Total 350 / 800 450 / 800 Output Total 600 / 2450 1850 / 2450 Balance -250 / -1650 -1400 / -1650 Intake: Intake, Oral Amount 450 / 450 Intake, Total IV Amount 350 / 350 Piperacillin/Tazo 4.5 gm In 0.9 100 / 100 % Sodium Chloride 100 ml @ 200 mls/hr IV Q6H [facility] Rx#:[id number] Vancomycin HCl 2,000 mg In 0.9 250 / 250 % Sodium Chloride 250 ml @ 125 mls/hr IV Q8H [facility] Rx#:[id number] Output: Output, Urine Amount 600 / 2450 1850 / 2450 Other: Number of Voids 1 Number of Unmeasured Voids 1 Number of Bowel Movements 1 1 Weight 106.957 kg Patient Weight 11/03/24 23:59 Weight 106.957 kg Laboratory Results - last 24 hr 11/03/24 00:34: POC Glucose 146 H 11/03/24 05:31: WBC 16.6 H, RBC 3.82 L, Hgb 11.6 L, Hct 38.2 L, MCV 100.0 H, MCH 30.4, MCHC 30.4 L, RDW 13.0, Plt Count 387, MPV 10.1, Neut % (Auto) 89.2 H, Lymph % (Auto) 5.1 L, [place] % (Auto) 2.1, Eos % (Auto) 0.0 L, Baso % (Auto) 0.4, Neut # (Auto) 14.8 H, Lymph # (Auto) 0.9, [place] # (Auto) 0.4, Eos # (Auto) 0.0, Baso # (Auto) 0.1, Total Counted 100, Neutrophils % (Manual) 93 H, Lymphocytes % (Manual) 7 L, Platelet Estimate Normal, Macrocytosis 1+, Sodium 142, Potassium 5.1 D, Chloride 99, Carbon Dioxide 39 H, Anion Gap 9.1, BUN 43 H, Creatinine 1.40 H, Estimated Creat Clear 76, Estimated GFR 50 L, Est GFR ( Amer) 61, Glucose 160 H, Calcium 8.2 L, Phosphorus 4.0, Magnesium 2.9 H, Total Bilirubin 0.3, AST 30, ALT 25, Alkaline Phosphatase 96, C-Reactive Protein 71.3 H, Total Protein 6.8, Albumin 3.4 L, Globulin 3.4 H, Albumin/Globulin Ratio 1.0 L, Procalcitonin 0.129 I & O for Labs for Last 24 Hours: Intake & Output 10/31/24 11/01/24 11/02/24 11/03/24 23:59 23:59 23:59 23:59 Intake Total 240 / 240 5914.716 / 6014.716 1430 / 1680 800 / 800 Output Total 725 / 825 700 / 715 1125 / 1125 2450 / 2450 Balance -485 / -585 5214.716 / 5299.716 305 / 555 -1650 / -1650 Weight 102.058 kg 108.046 kg 108.409 kg 106.957 kg Microbiology Reports for the Last 24 Hours: Microbiology 11/01/24 21:26 Sputum - Expectorated Sputum Gram Stain - Final 11/01/24 21:26 Sputum - Expectorated Sputum Sputum Culture - Preliminary Constitutional: Present moderate distress, obese, chronically ill appearing and cooperative Head: Present atraumatic and normocephalic ENT: Present normal exam Respiratory: Present accessory muscle use, prolonged expiratory phase, rhonchi, wheezes and diminished air movement Cardiac: Present Tachycardia Comment:: irregularly irregular GI: Present soft, distention and normal bowel sounds; Absent tenderness Extremities: Present normal inspection and full ROM; Absent edema Skin: Present intact; Absent erythema Neuro: Present Grossly Intact, alert, awake and moves all extremities Assessment and Plan *Assessment and plan (1) Severe sepsis: Status: Acute Category: Medical Code(s): A41.9 - Sepsis, unspecified organism; R65.20 - Severe sepsis without septic shock (2) Acute on chronic hypoxic respiratory failure: Status: Acute Category: Medical Code(s): J96.21 - Acute and chronic respiratory failure with hypoxia (3) Acute exacerbation of chronic obstructive pulmonary disease: Status: Acute Category: Medical Code(s): J44.1 - Chronic obstructive pulmonary disease with (acute) exacerbation (4) Right lower lobe pneumonia: Status: Acute Qualifiers: Pneumonia type: due to unspecified organism Qualified Code(s): J18.9 - Pneumonia, unspecified organism Category: Medical Code(s): J18.9 - Pneumonia, unspecified organism (5) Elevated troponin: Status: Acute Category: Medical Code(s): R79.89 - Other specified abnormal findings of blood chemistry (6) WISAM (obstructive sleep apnea): Problem Comment: Newly diagnosed mild WISAM with hypoxemia Status: Acute Category: Medical Code(s): G47.33 - Obstructive sleep apnea (adult) (pediatric) (7) History of smoking 30 or more pack years: Status: Chronic Category: Social Hx Code(s): Z87.891 - Personal history of nicotine dependence (8) Obesity (BMI 30.0-34.9): Status: Acute Category: Medical Code(s): E66.811 - Obesity, class 1 (9) Hypercapnic respiratory failure: Status: Acute Category: Medical Code(s): J96.92 - Respiratory failure, unspecified with hypercapnia (10) A-fib: Status: Acute Qualifiers: Atrial fibrillation type: unspecified Qualified Code(s): I48.91 - Unspecified atrial fibrillation Category: Medical Code(s): I48.91 - Unspecified atrial fibrillation Plan 69-year-old male with COPD on chronic oxygen at 2 L. Presents with worsening shortness of breath and dyspnea over the past 3 to 4 days. Found to be in sev ere sepsis with pneumonia and acute on chronic hypoxemic respiratory failure. Necessitating Vapotherm of 60% to maintain sats above 90%. Discussed case with ER physician, request admission for further management of pneumonia. I agreed to admit for further care. Received ceftriaxone and azithromycin in the ER. Due to severity of illness, admitted to ICU as his condition is serious, prognosis guarded. Tolerating BiPAP. Mentation improving. Gases showed improvement with decreased CO2. Will wear BiPAP while asleep and at night. Nasal cannula during the day. Continues to have A-fib with RVR. Cardiology and pulmonology assisting with care today. Problems addressed as follows: Severe sepsis Acute on chronic hypoxemic respiratory failure with hypercapnia secondary to right lower lobe pneumonia COPD exacerbation -Meeting sepsis criteria with tachycardia, tachypnea, leukocytosis, pneumonia on chest imaging. Severe criteria with endorgan damage given NSTEMI/elevation of troponin -Continue antibiotics, Vanco and Zosyn -Pulmonology consulted to assist with care due to hypercapnia. - Repeat chest x-ray this morning showing persistent right lung airspace disease. -DuoNebs scheduled every 4 hours. Levalbuterol available every 2 hours as needed for persistent wheeze and dyspnea - continue prednisone 40 mg daily -Concern for PE on initial eval of CTA, received 1 mg/kg Lovenox. Formal read does not show PE. Per my evaluation, patient has right lower and middle lobe consolidation consistent with pneumonia. -White count elevated at 16.6, trending down, hemoglobin 11.6, Pro-Ervin 0.129. CRP 71. -Continue BiPAP nightly or while asleep - Repeat CBC, CMP, magnesium ordered for the morning -Blood and sputum cultures pending. A-fib RVR Hyperlipidemia NSTEMI Acute HFrEF - Tolerating amiodarone 400 mg p.o. twice daily. Continue metoprolol succinate 100 mg twice daily -Cardiology consulted and evaluating today, recommend digoxin. Approximately 30 minutes after first dose of digoxin patient converted to sinus rhythm. Feeling better and less short of breath after conversion. -Continue Lovenox 1 mg/kg twice daily for anticoagulation -Echo has some wall motion abnormalities, with preliminary results showing reduced EF of 30%. Will likely need left heart cath prior to discharge - Troponin elevated at 0.04, suspect ischemia and type II NSTEMI from demand. Kidney function at baseline with 47, creatinine 1.4, magnesium 2.9, potassium 5.1 Given severity of illness hold home Lipitor, diclofenac -Resume diuresis with Bumex daily given heart failure diagnosis above. Bumex 1 mg IV daily Obesity complicates all aspects of his care Full code Cardiac diet TLOV
[2024-11-04] VITALS (34 sets, daily range): BP systolic 133–169; BP diastolic 64–95; PULSE 50–80; RESP 10–63; TEMP 36.3–37.1; O2SAT 92–99; BMI 33.1; BMI 33.0
[2024-11-04] MEDS: ENOXAPARIN 120MG/0.8ML SYRINGE 110 MG SUBCUT ×3 (00:23→23:57)
[2024-11-04] MEDS: IPRATROPIUM BROMIDE 0.5 MG/2.5ML SOLUTION IH ×3 (01:49→09:37)
[2024-11-04] MEDS: LEVALBUTEROL 1.25MG/3ML NEB 1.25 MG IH ×3 (01:49→09:37)
[2024-11-04] MEDS: PIPERACILLIN/TAZO 4.5 GM in 0.9 % SODIUM CHLORIDE 100 ML IV ×3 (04:39→16:00)
[2024-11-04] MEDS: BUDESONIDE 0.5MG/2ML NEB 0.5 MG IH (06:13)
[2024-11-04 06:51] LABS: Basophils # 0.1 K/mm3 (0-0.2); Basophils % 0.7 % (0.1-2.0); Hemoglobin 11.3 g/dL (14.1-18.0); Lymphocytes # 0.9 K/mm3 (0.7-4.5); Lymphocytes % 6.1 % (10-50); Mean Corpuscular HGB Conc 30.5 g/dL (31.8-35.4); Mean Corpuscular Hemoglobin 30.4 pg (27.0-31.2); Mean Corpuscular Volume 99.5 fl (80-94); Mean Platelet Volume 10.3 fl (7.4-10.4); Monocytes # 0.4 K/mm3 (0.1-1.0); Monocytes % 2.6 % (1.7-9.3); Neutrophils % 87.6 % (37.0-80.0); Platelet Count 325 K/mm3 (142-424); Red Blood Count 3.72 M/mm3 (4.60-6.20); Red Cell Distribution Width 13.1 % (11.5-17.5); White Blood Count 14.8 K/mm3 (4.8-10.8)
[2024-11-04 07:00] LABS: Albumin Level 3.2 g/dl (3.5-5.0); Chloride 96 mmol/L (98-107); Sodium 143 mmol/L (136-145)
[2024-11-04 07:01] LABS: Potassium 4.9 mmoL/L (3.5-5.1)
[2024-11-04 07:03] LABS: Alanine Aminotransferase 25 U/L (12-78); Aspartate Amino Transferase 29 U/L (17-59); Blood Urea Nitrogen 39 mg/dl (9-20); Creatinine Clearance Estimated 72 mL/min (50-200); Estimated Glomerular Filt Rate 47 ml/min (>60); GFR (African American) 56 ML/MIN (>60)
[2024-11-04 07:04] LABS: Alkaline Phosphatase 81 U/L (38-126); Calcium 8.1 mg/dl (8.4-10.2); Globulin 3.3 g/dL (1.3-3.2); Glucose 150 mg/dl (74-100); Total Protein,Serum 6.5 g/dl (6.3-8.2)
[2024-11-04 07:08] LABS: Bilirubin,Total < 0.1 mg/dl (0.2-1.3)
[2024-11-04 07:47] LABS: Anion Gap 18.9 mEq/L (5-15); Carbon Dioxide 33 mmol/L (22.0-30.0)
[2024-11-04 08:05] LABS: Magnesium 2.8 mg/dl (1.6-2.3)
[2024-11-04] MEDS: DIGOXIN 0.25MG/ML 2ML AMPUL 125 MCG IV (08:34)
[2024-11-04] MEDS: METOPROLOL SUCCINATE XL 100MG TABLET 100 MG PO ×2 (08:34→20:59)
[2024-11-04] MEDS: METHYLPREDNISOLONE SOD SUCC 40MG VIAL 40 MG IV (08:34)
--- NOTE | 2024-11-04 08:55 | P.PN_ITS ---
Subjective *Date: 11/04/24 *Time: 08:55 Medical Exam Vital signs and Labs for Last 24 Hours: Vital Signs Temp Pulse Pulse Resp BP Pulse Ox O2 Del Method 11/04/24 08:50 Room Air 11/04/24 08:34 73 11/04/24 08:00 70 11/04/24 07:00 56 L 23 169/95 H 96 11/04/24 06:30 57 L 21 97 11/04/24 06:24 BiPAP 11/04/24 06:15 50 L 11/04/24 06:15 50 L 11/04/24 06:15 11/04/24 06:00 57 L 21 158/89 H 96 11/04/24 05:30 53 L 16 98 11/04/24 05:00 53 L 23 148/89 H 98 11/04/24 04:54 BiPAP 11/04/24 04:30 51 L 22 95 11/04/24 04:00 142/85 H 11/04/24 04:00 62 24 99 11/04/24 04:00 60 11/04/24 03:30 53 L 22 94 L 11/04/24 03:00 54 L 22 98 11/04/24 02:30 56 L 25 H 154/92 H 97 11/04/24 02:28 BiPAP 11/04/24 02:00 69 26 H 154/64 H 11/04/24 02:00 11/04/24 02:00 BiPAP 11/04/24 01:49 60 11/04/24 01:49 58 L 11/04/24 01:49 11/04/24 01:30 60 28 H 99 11/04/24 01:00 57 L 23 169/91 H 98 11/04/24 01:00 BiPAP 11/04/24 00:30 63 26 H 95 11/04/24 00:24 11/04/24 00:00 98.7 F 71 63 H 133/67 97 BiPAP 11/04/24 00:00 68 11/03/24 22:38 Nasal Cannula 11/03/24 22:00 71 25 H 158/91 H 95 BiPAP 11/03/24 21:48 11/03/24 21:30 72 11/03/24 21:30 71 11/03/24 21:00 Nasal Cannula 11/03/24 20:00 Nasal Cannula 11/03/24 20:00 77 11/03/24 20:00 97.8 F 79 21 153/81 H 94 L Nasal Cannula 11/03/24 19:00 81 38 H 149/77 H 91 L 11/03/24 19:00 Nasal Cannula 11/03/24 17:30 84 20 96 11/03/24 17:23 83 11/03/24 17:23 82 11/03/24 17:23 90 L Nasal Cannula 11/03/24 17:00 84 22 161/94 H 92 L 11/03/24 17:00 Nasal Cannula 11/03/24 16:00 76 11/03/24 15:00 75 19 152/95 H 91 L 11/03/24 15:00 Nasal Cannula 11/03/24 14:30 60 37 H 95 11/03/24 14:00 112 H 93 L Nasal Cannula 11/03/24 14:00 105 H 18 133/97 H 92 L Nasal Cannula 11/03/24 13:25 127 H 11/03/24 13:05 140 H 18 11/03/24 13:02 130 H 11/03/24 13:02 133 H 11/03/24 13:00 Nasal Cannula 11/03/24 12:01 97.9 F 77 32 H 108/86 L 94 L Nasal Cannula 11/03/24 12:00 121 H 11/03/24 10:44 Nasal Cannula 11/03/24 10:00 132 H 39 H 125/85 93 L Nasal Cannula 11/03/24 09:41 131 H 11/03/24 09:41 132 H 11/03/24 09:00 Nasal Cannula O2 Flow Rate FiO2 11/04/24 08:50 4 11/04/24 08:34 11/04/24 08:00 11/04/24 07:00 11/04/24 06:30 11/04/24 06:24 11/04/24 06:15 11/04/24 06:15 11/04/24 06:15 40 11/04/24 06:00 11/04/24 05:30 11/04/24 05:00 11/04/24 04:54 11/04/24 04:30 11/04/24 04:00 11/04/24 04:00 11/04/24 04:00 11/04/24 03:30 11/04/24 03:00 11/04/24 02:30 11/04/24 02:28 11/04/24 02:00 11/04/24 02:00 40 11/04/24 02:00 40 11/04/24 01:49 11/04/24 01:49 11/04/24 01:49 40 11/04/24 01:30 11/04/24 01:00 11/04/24 01:00 11/04/24 00:30 11/04/24 00:24 40 11/04/24 00:00 11/04/24 00:00 11/03/24 22:38 5 11/03/24 22:00 11/03/24 21:48 40 11/03/24 21:30 11/03/24 21:30 11/03/24 21:00 5 11/03/24 20:00 5 11/03/24 20:00 11/03/24 20:00 5 11/03/24 19:00 11/03/24 19:00 4 11/03/24 17:30 11/03/24 17:23 11/03/24 17:23 11/03/24 17:23 3 11/03/24 17:00 11/03/24 17:00 4 11/03/24 16:00 11/03/24 15:00 11/03/24 15:00 4 11/03/24 14:30 11/03/24 14:00 5 11/03/24 14:00 4 11/03/24 13:25 11/03/24 13:05 11/03/24 13:02 11/03/24 13:02 11/03/24 13:00 5 11/03/24 12:01 4 11/03/24 12:00 11/03/24 10:44 5 11/03/24 10:00 4 11/03/24 09:41 11/03/24 09:41 11/03/24 09:00 5 Intake and Output 11/03/24 11/04/24 11/04/24 23:59 07:59 15:59 Intake Total 400 / 400 Output Total 250 / 2700 750 / 750 Balance -250 / -1500 -350 / -350 Intake: Intake, Total IV Amount 400 / 400 Piperacillin/Tazo 4.5 gm In 0.9 100 / 100 % Sodium Chloride 100 ml @ 200 mls/hr IV Q6H [facility] Rx#:[id number] Vancomycin/Water For Inj (Peg) 300 / 300 1.5 gm In 300 ml @ 150 mls/hr IV Q12H [facility] Rx#:[id number] Output: Output, Urine Amount 250 / 2700 750 / 750 Other: Number of Bowel Movements 1 Weight 107.5 kg Patient Weight 11/04/24 23:59 Weight 107.5 kg Laboratory Results - last 24 hr 11/03/24 05:31: Phosphorus 4.0, Magnesium 2.9 H, Procalcitonin 0.129 11/04/24 05:10: WBC 14.8 H, RBC 3.72 L, Hgb 11.3 L, Hct 37.0 L, MCV 99.5 H, MCH 30.4, MCHC 30.5 L, RDW 13.1, Plt Count 325, MPV 10.3, Neut % (Auto) 87.6 H, Lymph % (Auto) 6.1 L, [place] % (Auto) 2.6, Eos % (Auto) 0.0 L, Baso % (Auto) 0.7, Neut # (Auto) 13.0 H, Lymph # (Auto) 0.9, [place] # (Auto) 0.4, Eos # (Auto) 0.0, Baso # (Auto) 0.1, Sodium 143, Potassium 4.9, Chloride 96 L, Carbon Dioxide 33 H , Anion Gap 18.9 H, BUN 39 H, Creatinine 1.50 H, Estimated Creat Clear 72, Estimated GFR 47 L, Est GFR ( Amer) 56 L, Glucose 150 H, Calcium 8.1 L, Magnesium 2.8 H, Total Bilirubin < 0.1 L, AST 29, ALT 25, Alkaline Phosphatase 81, Total Protein 6.5, Albumin 3.2 L, Globulin 3.3 H, Albumin/Globulin Ratio 1.0 L I & O for Labs for Last 24 Hours: Intake & Output 11/01/24 11/02/24 11/03/24 11/04/24 23:59 23:59 23:59 23:59 Intake Total 5914.716 / 6014.716 1430 / 1680 800 / 1200 400 / 400 Output Total 700 / 715 1125 / 1125 2700 / 2700 750 / 750 Balance 5214.716 / 5299.716 305 / 555 -1900 / -1500 -350 / -350 Weight 108.046 kg 108.409 kg 106.957 kg 107.5 kg Microbiology Reports for the Last 24 Hours: Microbiology 11/03/24 15:20 Sputum - Expectorated Sputum Gram Stain - Final 11/01/24 21:26 Sputum - Expectorated Sputum Gram Stain - Final 11/01/24 21:26 Sputum - Expectorated Sputum Sputum Culture - Preliminary The patient's infection will respond to the chosen ABx?: Yes (AFEBRILE OVER 24 HR, SPUTUM PENDING, BLOOD CX NO GROWTH AT 48 HRS.) Is the patient receiving the right drug, dose, and route?: Yes Could a more targeted ABx be ordered?: No
[2024-11-04] MEDS: PHA TO NURSING INSTRUCTION 1 EACH NOTAPPLIC (09:07)
--- NOTE | 2024-11-04 09:44 | EXP.PULM.PN ---
Subjective *Date: 11/04/24 *Time: 11:56 Interval history: No acute respiratory vents overnight. Patient denies any new respiratory complaints. Pulmonology Exam Inpatient Vital signs and Labs for Last 24 Hours: Temp Pulse Resp BP Pulse Ox O2 Del Method O2 Flow Rate 98.7 F 65 23 169/95 H 96 Room Air 4 11/04/24 00:00 11/04/24 09:38 11/04/24 07:00 11/04/24 07:00 11/04/24 07:00 11/04/24 08:50 11/04/24 08:50 FiO2 40 11/04/24 06:15 Laboratory Results - last 24 hr 11/04/24 05:10: WBC 14.8 H, RBC 3.72 L, Hgb 11.3 L, Hct 37.0 L, MCV 99.5 H, MCH 30.4, MCHC 30.5 L, RDW 13.1, Plt Count 325, MPV 10.3, Neut % (Auto) 87.6 H, Lymph % (Auto) 6.1 L, [place] % (Auto) 2.6, Eos % (Auto) 0.0 L, Baso % (Auto) 0.7, Neut # (Auto) 13.0 H, Lymph # (Auto) 0.9, [place] # (Auto) 0.4, Eos # (Auto) 0.0, Baso # (Auto) 0.1, Sodium 143, Potassium 4.9, Chloride 96 L, Carbon Dioxide 33 H, Anion Gap 18.9 H, BUN 39 H, Creatinine 1.50 H, Estimated Creat Clear 72, Estimated GFR 47 L, Est GFR ( Amer) 56 L, Glucose 150 H, Calcium 8.1 L, Magnesium 2.8 H, Total Bilirubin < 0.1 L, AST 29, ALT 25, Alkaline Phosphatase 81, Total Protein 6.5, Albumin 3.2 L, Globulin 3.3 H, Albumin/Globulin Ratio 1.0 L Temp Pulse Resp BP Pulse Ox O2 Del Method O2 Flow Rate 98.1 F 131 H 34 H 120/81 93 L Nasal Cannula 4 11/03/24 08:02 11/03/24 09:41 11/03/24 08:02 11/03/24 08:02 11/03/24 08:02 11/03/24 08:02 11/03/24 08:02 FiO2 40 11/02/24 22:00 Laboratory Results - last 24 hr 11/02/24 09:04: WBC 18.1 H, RBC 3.66 L, Hgb 11.2 L, Hct 36.4 L, MCV 99.5 H, MCH 30.6, MCHC 30.8 L, RDW 12.9, Plt Count 362, MPV 10.0, Neut % (Auto) 86.8 H, Lymph % (Auto) 6.4 L, [place] % (Auto) 2.6, Eos % (Auto) 0.0 L, Baso % (Auto) 0.6, Neut # (Auto) 15.7 H, Lymph # (Auto) 1.2, [place] # (Auto) 0.5, Eos # (Auto) 0.0, Baso # (Auto) 0.1, Total Counted 100, Neutrophils % (Manual) 90 H, Lymphocytes % (Manual) 7 L, Monocytes % (Manual) 3, Platelet Estimate Normal, RBC Morphology Normal, Sodium 140, Potassium 4.1, Chloride 101, Carbon Dioxide 37 H, Anion Gap 6.1, BUN 47 H D, Creatinine 1.50 H D, Estimated Creat Clear 72, Estimated GFR 47 L, Est GFR ( Amer) 56 L D, Glucose 177 H, Calcium 7.3 L, Phosphorus 3.9, Magnesium 2.9 H D, Total Bilirubin 0.2, AST 26 D, ALT 26, Alkaline Phosphatase 88, Total Protein 6.3, Albumin 3.1 L D, Globulin 3.2, Albumin/Globulin Ratio 1.0 L, Procalcitonin 0.176, Vancomycin Trough 33.0 H 11/03/24 00:34: POC Glucose 146 H 11/03/24 05:31: WBC 16.6 H, RBC 3.82 L, Hgb 11.6 L, Hct 38.2 L, MCV 100.0 H, MCH 30.4, MCHC 30.4 L, RDW 13.0, Plt Count 387, MPV 10.1, Neut % (Auto) 89.2 H, Lymph % (Auto) 5.1 L, [place] % (Auto) 2.1, Eos % (Auto) 0.0 L, Baso % (Auto) 0.4, Neut # (Auto) 14.8 H, Lymph # (Auto) 0.9, [place] # (Auto) 0.4, Eos # (Auto) 0.0, Baso # (Auto) 0.1, Total Counted 100, Neutrophils % (Manual) 93 H, Lymphocytes % (Manual) 7 L, Platelet Estimate Normal, Macrocytosis 1+, Sodium 142, Potassium 5.1 D, Chloride 99, Carbon Dioxide 39 H, Anion Gap 9.1, BUN 43 H, Creatinine 1.40 H, Estimated Creat Clear 76, Estimated GFR 50 L, Est GFR ( Amer) 61, Glucose 160 H, Calcium 8.2 L, Phosphorus 4.0, Magnesium 2.9 H, Total Bilirubin 0.3, AST 30, ALT 25, Alkaline Phosphatase 96, C-Reactive Protein 71.3 H, Total Protein 6.8, Albumin 3.4 L, Globulin 3.4 H, Albumin/Globulin Ratio 1.0 L, Procalcitonin 0.129 I & O for Labs for Last 24 Hours: Intake & Output 11/01/24 11/02/24 11/03/24 11/04/24 23:59 23:59 23:59 23:59 Intake Total 5914.716 / 6014.716 1430 / 1680 800 / 1200 400 / 400 Output Total 700 / 715 1125 / 1125 2700 / 2700 750 / 750 Balance 5214.716 / 5299.716 305 / 555 -1900 / -1500 -350 / -350 Weight 238 lb 3.2 oz 239 lb 235 lb 12.8 oz 236 lb 15.951 oz Intake & Output 10/31/24 11/01/24 11/02/24 11/03/24 23:59 23:59 23:59 23:59 Intake Total 240 / 240 5914.716 / 6014.716 1430 / 1680 590 / 590 Output Total 725 / 825 700 / 715 1125 / 1125 600 / 600 Balance -485 / -585 5214.716 / 5299.716 305 / 555 -10 / -10 Weight 225 lb 238 lb 3.2 oz 239 lb 235 lb 12.8 oz Microbiology Reports for the Last 24 Hours: Microbiology 11/03/24 15:20 Sputum - Expectorated Sputum Gram Stain - Final 11/01/24 21:26 Sputum - Expectorated Sputum Gram Stain - Final 11/01/24 21:26 Sputum - Expectorated Sputum Sputum Culture - Preliminary Microbiology 11/01/24 21:26 Sputum - Expectorated Sputum Gram Stain - Final 11/01/24 21:26 Sputum - Expectorated Sputum Sputum Culture - Preliminary 10/31/24 11:55 Blood Blood Culture - Preliminary NO GROWTH AFTER 48 HOURS 10/31/24 11:55 Blood Blood Culture - Preliminary NO GROWTH AFTER 48 HOURS 10/31/24 15:45 Anus CRE Surveillance Culture - Final Negative Constitutional: Present moderate distress Head: Present normocephalic and atraumatic ENT: Present normal exam, normal oropharynx and mucous membranes moist Neck: Present normal inspection and full ROM Respiratory: Present prolonged expiratory phase, respiratory distress, wheezes and able to speak in complete sentences Cardiac: Present S1/S2, Tachycardia and radial pulses present GI: Present soft and distention; Absent tenderness or guarding Skin: Present intact; Absent cyanosis or jaundice Neuro: Present alert, awake and oriented x 3 Extremities: Present normal inspection; Absent clubbing or cyanosis Psychiatric: Present normal affect and cooperative Assessment and Plan *Assessment and plan (1) Acute on chronic hypoxic respiratory failure: Status: Acute Category: Medical Code(s): J96.21 - Acute and chronic respiratory failure with hypoxia (2) Hypercapnic respiratory failure: Status: Acute Category: Medical Code(s): J96.92 - Respiratory failure, unspecified with hypercapnia (3) Pneumonia: Status: Chronic Qualifiers: Laterality: right Lung location: lower lobe of lung Pneumonia type: due to unspecified organism Qualified Code(s): J18.9 - Pneumonia, unspecified organism Category: Medical Code(s): J18.9 - Pneumonia, unspecified organism Plan Mr. Poon is a 69-year-old male greater than [id number] smoking history COPD, chronic hypoxic respiratory failure prior history of right lower lobe pneumonia presented today worsening respiratory status hypercarbic respiratory failure pulmonary was called for further evaluation and management. Patient with progressively worsening respiratory's for 10 to 14 days prior to hospital admission with worsening cough productive phlegm. CTA upon admission no evidence of pulmonary embolism, right middle and lower lobe airspace disease (predominant right lower lobe). Blood gas upon admission with a pH of 7.19 and pCO2 86.4severe hypercarbic respiratory failure needing noninvasive ventilatory therapy upon admission. Chest x-ray from this morning reviewed, improvement in the noted right lower lobe consolidative changes. Comprehensive respiratory viral PCR panel negative. Afebrile. Hemodynamically stable. Leukocytosis improving. On examination patient does not appear to be in any severe respiratory distress. Bilateral wheezing noted on auscultation. On nasal cannula saturating 90% and above. Blood cultures no growth 48 hours. Sputum culture preliminary no reportable results Interval Update: No acute respiratory vents overnight. Continued to remain on nasal cannula oxygen supplementation. Afebrile. Hemodynamically stable. Improving leukocytosis. Continue to receive Zosyn. Pending repeat sputum cultures. Echocardiogram reduced EF at 30%. Off BiPAP for the last 48 hours. Initially needing NIV for hypercarbic respiratory failure upon admission Plan: Antibiotics can be weaned to levofloxacin pending final sputum culture results from pulmonary stand point. Follow with repeat sputum culture Recommend speech and swallow evaluation F/u VBG Trelegy 100 inhaler along with DuoNebs 4 times daily as needed Continue oxygen supplementation via nasal cannula to maintain O2 saturation goal of 90% and above
[2024-11-04 10:26] LABS: Vancomycin,Trough 18.5 ug/mL (5.0-10.0)
--- NOTE | 2024-11-04 10:48 | EXP.PHA.CONS ---
Pharmacy Consult Date: 11/04/24 Time: 10:48 Referring provider: DR GALINDO Reason for Consult:: VANCOMYCIN TROUGH LEVEL OBTAINED Allergies Allergy/AdvReac Type Severity Reaction Status Date / Time No Known Allergies Allergy Verified 03/20/23 06:30 Home Medications ?Medication ?Instructions ?Recorded ?Confirmed ?Type albuterol sulfate 90 mcg/actuation 2 inh inhalation QIDP PRN 10/31/24 10/31/24 History aerosol inhaler shortness of breath or wheezing atorvastatin 40 mg tablet 40 mg PO DAILY 10/31/24 10/31/24 History diclofenac sodium 75 mg 75 mg PO BID 10/31/24 10/31/24 History tablet,delayed release furosemide 20 mg tablet 20 mg PO BID 10/31/24 10/31/24 History potassium chloride 10 mEq 10 meq PO TID 10/31/24 10/31/24 History tablet,extended release(part/cryst) New Prescriptions to Start Prescriptions: Height: 1.8 m Weight: 107.5 kg Laboratory Results:: Laboratory Results - last 24 hr 11/04/24 05:10: WBC 14.8 H, RBC 3.72 L, Hgb 11.3 L, Hct 37.0 L, MCV 99.5 H, MCH 30.4, MCHC 30.5 L, RDW 13.1, Plt Count 325, MPV 10.3, Neut % (Auto) 87.6 H, Lymph % (Auto) 6.1 L, [place] % (Auto) 2.6, Eos % (Auto) 0.0 L, Baso % (Auto) 0.7, Neut # (Auto) 13.0 H, Lymph # (Auto) 0.9, [place] # (Auto) 0.4, Eos # (Auto) 0.0, Baso # (Auto) 0.1, Sodium 143, Potassium 4.9, Chloride 96 L, Carbon Dioxide 33 H, Anion Gap 18.9 H, BUN 39 H, Creatinine 1.50 H, Estimated Creat Clear 72, Estimated GFR 47 L, Est GFR ( Amer) 56 L, Glucose 150 H, Calcium 8.1 L, Magnesium 2.8 H, Total Bilirubin < 0.1 L, AST 29, ALT 25, Alkaline Phosphatase 81, Total Protein 6.5, Albumin 3.2 L, Globulin 3.3 H, Albumin/Globulin Ratio 1.0 L 11/04/24 09:20: Vancomycin Trough 18.5 H Medical History: Medical History (Updated 11/03/24 @ 10:54 by BERNA Lew) CPAP (continuous positive airway pressure) dependence Sleep apnea Chronic hypoxemic respiratory failure Dyspnea on exertion Pneumonia Abnormal screening CT of chest Screening for lung cancer Encounter for screening for malignant neoplasm of lung in current smoker with 30 pack year history or greater Dyspnea on exertion COPD mixed type History of smoking 30 or more pack years COPD (chronic obstructive pulmonary disease) Assessment and Plan Assessment and plan all Dx Assessment and Plan for all problems:: Pharmacokinetic dosing service Weight: 107.5 Kilograms Vancomycin single level analysis: Current dose being given: 1500 mg Current dosing interval: 12 hrs Current infusion time (hrs): 2 Single level Trough Data: Trough level obtained: 18.5 mcg/ml Timing of trough - # of hrs before next dose: 0.5 Hrs Desired peak: 35 mcg/ml Desired trough: 12.5 mcg/ml Diagnosis: SEPSIS Estimated PK Parameters: New rate constant (lukas): 0.064 hr-1 Half-life: 10.83 Hours Vd from levels: 75.25 Liters (0.7 L/kg) CLvanco=?? 4.816 L/hr Estimated New Dose and Interval Recommended dose: 1924.9 mg Recommended interval: 18.1 Hrs Patient response: Patient is responding to treatment [yes/no] wbc decreasing, S/SX reduced [yes/no] Renal function is stable/unstable Recommendations: Give Vancomycin 2000 mg q 18 hrs. Infuse over 2 hrs Expected Cpeak: 36.5 mcg/mL Expected Ctrough: 13.1 mcg/mL AUC 0-24 /MIRELLA Data: MIRELLA 0.5 mcg/mL:?? AUC/MIRELLA:? 1107.4 MIRELLA 1.0 mcg/mL:?? AUC/MIRELLA:? 553.7 Thank you for the consult
--- NOTE | 2024-11-04 11:09 | P.PN_ITS ---
Subjective Subjective Date: 11/04/24 Time: 11:09 Principal diagnosis: Pneumonia, Cardiomyopathy, NSTEMI Interval history: 69 yo WM in bed in NAD. SOA seems to be improved compared to yesterday. He converted to NSR after IV digoxin yesterday. Diuresed about 1500 ml yesterday after IV bumex. Will repeat Bumex today Exam Data for Last 24 hours Vital signs and Labs for Last 24 Hours: Temp Pulse Resp BP Pulse Ox O2 Del Method O2 Flow Rate 98.7 F 65 11 L 137/72 93 L Nasal Cannula 4 11/04/24 00:00 11/04/24 09:38 11/04/24 08:10 11/04/24 08:10 11/04/24 09:54 11/04/24 10:46 11/04/24 10:46 FiO2 40 11/04/24 06:15 Laboratory Results - last 24 hr 11/04/24 05:10: WBC 14.8 H, RBC 3.72 L, Hgb 11.3 L, Hct 37.0 L, MCV 99.5 H, MCH 30.4, MCHC 30.5 L, RDW 13.1, Plt Count 325, MPV 10.3, Neut % (Auto) 87.6 H, Lymph % (Auto) 6.1 L, [place] % (Auto) 2.6, Eos % (Auto) 0.0 L, Baso % (Auto) 0.7, Neut # (Auto) 13.0 H, Lymph # (Auto) 0.9, [place] # (Auto) 0.4, Eos # (Auto) 0.0, Baso # (Auto) 0.1, Sodium 143, Potassium 4.9, Chloride 96 L, Carbon Dioxide 33 H , Anion Gap 18.9 H, BUN 39 H, Creatinine 1.50 H, Estimated Creat Clear 72, Estimated GFR 47 L, Est GFR ( Amer) 56 L, Glucose 150 H, Calcium 8.1 L, Magnesium 2.8 H, Total Bilirubin < 0.1 L, AST 29, ALT 25, Alkaline Phosphatase 81, Total Protein 6.5, Albumin 3.2 L, Globulin 3.3 H, Albumin/Globulin Ratio 1.0 L 11/04/24 09:20: Vancomycin Trough 18.5 H I & O for Last 24 hours: Intake & Output 11/01/24 11/02/24 11/03/24 11/04/24 11:59 11:59 11:59 11:59 Intake Total 4975.209 / 4975.209 2069.507 / 2069.507 1130 / 1130 1090 / 1090 Output Total 955 / 955 1170 / 1170 1775 / 1775 2100 / 2100 Balance 4020.209 / 4020.209 899.507 / 899.507 -645 / -645 -1010 / -1010 Weight 238 lb 3.2 oz 239 lb 235 lb 12.8 oz 236 lb 15.951 oz Microbiology Reports for the Last 24 Hours: Microbiology 11/03/24 15:20 Sputum - Expectorated Sputum Gram Stain - Final 11/01/24 21:26 Sputum - Expectorated Sputum Gram Stain - Final 11/01/24 21:26 Sputum - Expectorated Sputum Sputum Culture - Preliminary Constitutional Constitutional: mild distress *Routine Respiratory Exam Respiratory: Present decreased breath sounds and crackles *Routine Cardiovascular Exam Cardiovascular: Present RRR Progress Note: A&P Assessment and plan (1) Acute on chronic hypoxic respiratory failure: Status: Acute (2) Hypercapnic respiratory failure: Status: Acute (3) Pneumonia: Status: Chronic (4) Acute HFrEF (heart failure with reduced ejection fraction): Status: Acute (5) Cardiomyopathy: Status: Acute Assessment and Plan Assessment and Plan for All Diagnoses:: 1. Acute on chronic hypoxemic resp failure with sepsis related to bilateral pneumonia (right greater than left) -on piperacillin/tazobactam, Vancomycin and steroids -on vapotherm -pulmonary consulted -No PE on chest CTA -BNP 393 on admission 2. A. fib with RVR -on metoprolol succ 100 mg BID (increased overnight). Increase as BP allows -on amiodarone oral after IV loaded this weekend -on Lovenox 110 mg Q12 hrs -converted to NSR after IV digoxin 11/03/2024 3. Type II NSTEMI, HFrEF -heart score of 7 (mod suspicion, EKG non-specific due to LBBB, age, >3 CRF's, elevated trop) -add aspirin -continue lovenox -Echo shows EF 30% with distal and apical LV wall akinesis. -CRP 71.3 -repeat Bumex today 4. Hypertension -controlled 5. Hyperlipidemia -check lipids prior to discharge -statin on hold for now 6. LOYD with Cr up to 1.5 -down to 1.4 today Repeat Bumex today Plan [facility] tomorrow Continue lovenox (hold dose in AM for cath) Hold CLAY/ARB/ARNi and aldactone for now due to LOYD
[2024-11-04] MEDS: BUMETANIDE 1MG/4ML VIAL 1 MG IV (11:24)
[2024-11-04 12:53] LABS: Lactate Venous 1.8 mmol/L (0.4-2.0); VBG Base Excess 17.6 mmol/L (-2.4-2.3); VBG HCO3 41.9 mmol/L (23-30); VBG Oxygen Saturation 76.5 % (50-70); VBG PCO2 64.5 mmol/L (35-51); VBG PH 7.43 mmol/L (7.31-7.41); VBG PO2 37.9 mmol/L (28-40); VBG Total CO2 43.9 mmol/L (23-27)
[2024-11-04] MEDS: VANCOMYCIN HCL 2,000 MG in 0.9 % SODIUM CHLORIDE 250 ML 125 MG IV (16:32)
--- NOTE | 2024-11-04 16:40 | PC.NURSE ---
Addendum entered by Eugenia Gramajo RN 11/04/24 16:52: pt to be NPO at midnight to go for heart cath tomorrow. pt does have consent on chart. pt aware of plan of care. Original Note: pt moved over from the unit this shift. pt alert and oriented. pt has expiratory wheezing noted. pt currently on 3LNC. pt has productive cough. abdomen soft, nontender. bowel sounds active. voiding per urinal. pt's sister currently at bedside visiting. pt did transfer from wheelchair to bed with assist x1. call light w/i reach. bed alarm in place.
--- NOTE | 2024-11-04 17:39 | P.PN_ITS ---
Subjective *Date: 11/04/24 *Time: 17:39 Interval history: Patient improving, weaned to 4 L nasal cannula. Cardiology planning for [facility] tomorrow. N.p.o. at midnight. Exam Data for Last 24 hours Vital signs and Labs for Last 24 Hours: Temp Pulse Resp BP Pulse Ox O2 Del Method O2 Flow Rate 98.1 F 80 20 154/86 H 92 L Nasal Cannula 4 11/04/24 15:57 11/04/24 16:00 11/04/24 15:57 11/04/24 15:57 11/04/24 15:57 11/04/24 17:00 11/04/24 17:00 FiO2 40 11/04/24 06:15 Laboratory Results - last 24 hr 11/04/24 05:10: WBC 14.8 H, RBC 3.72 L, Hgb 11.3 L, Hct 37.0 L, MCV 99.5 H, MCH 30.4, MCHC 30.5 L, RDW 13.1, Plt Count 325, MPV 10.3, Neut % (Auto) 87.6 H, Lymph % (Auto) 6.1 L, [place] % (Auto) 2.6, Eos % (Auto) 0.0 L, Baso % (Auto) 0.7, Neut # (Auto) 13.0 H, Lymph # (Auto) 0.9, [place] # (Auto) 0.4, Eos # (Auto) 0.0, Baso # (Auto) 0.1, Sodium 143, Potassium 4.9, Chloride 96 L, Carbon Dioxide 33 H , Anion Gap 18.9 H, BUN 39 H, Creatinine 1.50 H, Estimated Creat Clear 72, Estimated GFR 47 L, Est GFR ( Amer) 56 L, Glucose 150 H, Calcium 8.1 L, Magnesium 2.8 H, Total Bilirubin < 0.1 L, AST 29, ALT 25, Alkaline Phosphatase 81, Total Protein 6.5, Albumin 3.2 L, Globulin 3.3 H, Albumin/Globulin Ratio 1.0 L 11/04/24 09:20: Vancomycin Trough 18.5 H 11/04/24 12:50: VBG pH 7.43 H, VBG pCO2 64.5 H, VBG pO2 37.9, VBG HCO3 41.9 H, VBG Total CO2 43.9 H, VBG O2 Saturation 76.5 H, VBG Base Excess 17.6 H, VBG Lactic Acid 1.8 I & O for Last 24 hours: Intake & Output 11/01/24 11/02/24 11/03/24 11/04/24 23:59 23:59 23:59 23:59 Intake Total 5914.716 / 6014.716 1430 / 1680 800 / 1200 980 / 980 Output Total 700 / 715 1125 / 1125 2700 / 2700 1974 / 1974 Balance 5214.716 / 5299.716 305 / 555 -1900 / -1500 -995 / -995 Weight 108.046 kg 108.409 kg 106.957 kg 107 kg Microbiology Reports for the Last 24 Hours: Microbiology 11/01/24 21:26 Sputum - Expectorated Sputum Gram Stain - Final 11/01/24 21:26 Sputum - Expectorated Sputum Sputum Culture - Final 10/31/24 11:55 Blood Blood Culture - Preliminary NO GROWTH AFTER 4 DAYS 10/31/24 11:55 Blood Blood Culture - Preliminary NO GROWTH AFTER 4 DAYS 11/03/24 15:20 Sputum - Expectorated Sputum Gram Stain - Final Constitutional Constitutional: no acute distress *Routine HEENT Exam Head: Present normocephalic Eye: Present EOMI and PERRL ENT: Present mucous membranes moist *Routine Neck Exam Neck: Present supple; Absent lymphadenopathy *Routine Respiratory Exam Respiratory: Present CTA bilaterally *Routine Cardiovascular Exam Cardiovascular: Present RRR *Routine Abdominal Exam Abdominal: Present soft and normoactive bowel sounds; Absent tenderness *Routine Extremities Exam Extremities: Absent cyanosis, clubbing or edema *Routine Skin Exam Skin: Present warm; Absent rash *Routine Neurological Exam Neurological: Present alert and oriented X3 Assessment and Plan *Assessment and plan (1) Severe sepsis: Status: Acute Category: Medical Code(s): A41.9 - Sepsis, unspecified organism; R65.20 - Severe sepsis without septic shock (2) Acute on chronic hypoxic respiratory failure: Status: Acute Category: Medical Code(s): J96.21 - Acute and chronic respiratory failure with hypoxia (3) Acute exacerbation of chronic obstructive pulmonary disease: Status: Acute Category: Medical Code(s): J44.1 - Chronic obstructive pulmonary disease with (acute) exacerbation (4) Right lower lobe pneumonia: Status: Acute Qualifiers: Pneumonia type: due to unspecified organism Qualified Code(s): J18.9 - Pneumonia, unspecified organism Category: Medical Code(s): J18.9 - Pneumonia, unspecified organism (5) Elevated troponin: Status: Acute Category: Medical Code(s): R79.89 - Other specified abnormal findings of blood chemistry (6) WISAM (obstructive sleep apnea): Problem Comment: Newly diagnosed mild WISAM with hypoxemia Status: Acute Category: Medical Code(s): G47.33 - Obstructive sleep apnea (adult) (pediatric) (7) History of smoking 30 or more pack years: Status: Chronic Category: Social Hx Code(s): Z87.891 - Personal history of nicotine dependence (8) Obesity (BMI 30.0-34.9): Status: Acute Category: Medical Code(s): E66.811 - Obesity, class 1 (9) Hypercapnic respiratory failure: Status: Acute Category: Medical Code(s): J96.92 - Respiratory failure, unspecified with hypercapnia (10) A-fib: Status: Acute Qualifiers: Atrial fibrillation type: unspecified Qualified Code(s): I48.91 - Unspecified atrial fibrillation Category: Medical Code(s): I48.91 - Unspecified atrial fibrillation Plan Patient is a 69-year-old male with COPD on chronic oxygen at 2 L. Presents with worsening shortness of breath and dyspnea over the past 3 to 4 days. Found to be in severe sepsis with pneumonia and acute on chronic hypoxemic respiratory failure. #Severe sepsis #Acute on chronic hypoxemic respiratory failure with hypercapnia #Right lower lobe pneumonia #COPD exacerbation - Initially met sepsis criteria with tachycardia, tachypnea, leukocytosis, pneumonia on chest imaging. Severe criteria with endorgan damage given NSTEMI/elevation of troponin. ? Tachycardia, tachypnea resolved. WBC improved to 14.8 today. ? CXR 11/03/2024 shows right lower lobe pneumonia with associated effusion. ? Pulmonology consulted, stopped DuoNebs and started Trelegy today. Also recommended starting levofloxacin and stopping vancomycin, Zosyn. ? Started levofloxacin. ? Decreased Solu-Medrol 40 mg daily. ? Weaned to 4 L nasal cannula. Uses BiPAP nightly. ? Follow-up repeat sputum culture. - Repeat CBC, CMP, magnesium ordered for the morning #A-fib RVR #Hyperlipidemia #NSTEMI #Acute HFrEF ? Cardiology consulted, continue metoprolol succinate 100 mg twice daily, amiodarone 400 mg twice daily, digoxin 125 mg daily. ? Converted to NSR with digoxin. - Continue Lovenox 1 mg/kg twice daily for anticoagulation pending [facility]. ? Started aspirin, statin. - Echo has some wall motion abnormalities, with preliminary results showing reduced EF of 30%. ? Cardiology planning for [facility] tomorrow. N.p.o. at midnight. ? Will hold Bumex today, AGAP elevated and slightly dry on exam. Consider restarting tomorrow. Kidney function at baseline with 47, creatinine 1.4, magnesium 2.9, potassium 5.1 Given severity of illness hold home Lipitor, diclofenac Obesity complicates all aspects of his care Full code Cardiac diet TLOV
[2024-11-04] MEDS: ATORVASTATIN 40MG TABLET 40 MG PO (20:59)
[2024-11-05] VITALS (21 sets, daily range): BP systolic 145–192; BP diastolic 64–96; PULSE 55–90; RESP 18–22; TEMP 36.4–36.8; O2SAT 90–98; BMI 32.8
--- NOTE | 2024-11-05 04:27 | PC.NURSE ---
Patient is alert and oriented x4. No periods of confusion were noted this shift. Patient was observed to have eyes closed, respirations even and unlabored, and no apparent distress for the majority of the night. He was placed on the BiPAP at around 23:16 and was taken off around 02:34 (prior to his shower). When off the BiPAP, the patient wears 4 L of oxygen via nasal cannula. Oxygen saturations have remained > 90% when on either oxygen delivery device. He stated that he feels like he has been breathing a little better this shift. No complaints of chest pain. However, he continues to cough up mucoid sputum, utilizing an emesis bag. Upon auscultation of his lungs, diminished lung sounds and expiratory wheezing could be heard. Auscultation of his heart and bowels were within normal findings. Bundle branch block/sinus rhythm was shown on telemetry. Scheduled medications administered as appropriately per NOV. Patient ambulates with standby assistance + no difficulties to the bathroom for elimination needs; a urinal is additionally at the bedside for voiding. He has had multiple bowel movements this shift. He has been NPO since midnight pending heart cath. At this time, he is resting upright in bed without any further complaints. No acute changes noted thus far. Bed alarm on. Call light within reach.
[2024-11-05] MEDS: FLUTICASONE/UMECLIDIN/VILANTER 100/62.5/25MCG INHALER 1 PUFF IH (06:09)
[2024-11-05 06:50] LABS: Albumin Level 3.3 g/dl (3.5-5.0); Chloride 94 mmol/L (98-107); Potassium 4.4 mmoL/L (3.5-5.1); Sodium 143 mmol/L (136-145)
[2024-11-05 06:52] LABS: Blood Urea Nitrogen 38 mg/dl (9-20); Creatinine Clearance Estimated 76 mL/min (50-200); Estimated Glomerular Filt Rate 50 ml/min (>60); GFR (African American) 61 ML/MIN (>60)
[2024-11-05 06:53] LABS: Alanine Aminotransferase 26 U/L (12-78); Alkaline Phosphatase 83 U/L (38-126); Aspartate Amino Transferase 33 U/L (17-59); Bilirubin,Total 0.3 mg/dl (0.2-1.3); Calcium 8.5 mg/dl (8.4-10.2); Globulin 3.3 g/dL (1.3-3.2); Glucose 89 mg/dl (74-100); Magnesium 2.5 mg/dl (1.6-2.3); Total Protein,Serum 6.6 g/dl (6.3-8.2)
[2024-11-05 07:00] LABS: Basophils # 0.1 K/mm3 (0-0.2); Basophils % 0.5 % (0.1-2.0); Eosinophils # 0.1 K/mm3 (0.0-0.4); Eosinophils % 0.8 % (0.1-12.0); Hematocrit 40.8 % (42.0-52.0); Hemoglobin 12.3 g/dL (14.1-18.0); Lymphocytes # 1.7 K/mm3 (0.7-4.5); Lymphocytes % 12.6 % (10-50); Mean Corpuscular HGB Conc 30.1 g/dL (31.8-35.4); Mean Corpuscular Hemoglobin 29.7 pg (27.0-31.2); Mean Corpuscular Volume 98.6 fl (80-94); Mean Platelet Volume 10.4 fl (7.4-10.4); Monocytes # 0.9 K/mm3 (0.1-1.0); Monocytes % 6.3 % (1.7-9.3); Neutrophils # 10.4 K/mm3 (1.8-7.8); Neutrophils % 76.4 % (37.0-80.0); Platelet Count 354 K/mm3 (142-424); Red Blood Count 4.14 M/mm3 (4.60-6.20); Red Cell Distribution Width 12.7 % (11.5-17.5); White Blood Count 13.6 K/mm3 (4.8-10.8)
[2024-11-05 07:13] LABS: Anion Gap 10.4 mEq/L (5-15); Carbon Dioxide 43 mmol/L (22.0-30.0)
--- NOTE | 2024-11-05 07:15 | IR_ITS ---
APPROVED REPORT Patient Location: Inpatient Synoptic Meteorologist: KYLEE Ngo RT (R) PROCEDURES Left heart catheterization Selective coronary angiogram Left ventriculogram Drug-eluting stent deployment to the mid LAD INDICATION Coronary artery disease, Systolic congestive heart failure, Abnormal EKG Informed consent was obtained prior to the procedure. COMPLICATIONS NONE Estimated Blood Loss: LESS THAN 10 ML TECHNIQUE One percent lidocaine used to anesthetize the right anterior aspect of the wrist. The right radial artery was accessed via the Seldinger technique. A 6 Upper [place] sheath was placed in the right radial artery. 2.5 mg of Verapamil, 800 mcg of nitroglycerin, 1mg Lidocaine and 5000 U Heparin were given through the arterial sheath. The 6 Upper Sor[place] JL 3 guide catheter was also used to perform left heart catheterization, left ventriculogram and selective coronary angiogram. At the end of the diagnostic angiogram therapeutic Was administered giving a therapeutic ACT and the guide catheter was placed in left main artery followed by Choice PT extra-support wire placed down the LAD. A 3 mm x 26 mm [place] frontier stent was deployed at 24 montserrat reducing the severe stenosis to 0% MARCO ANTONIO-3 flow was present before and after the procedure. At the end the procedure the apparatus was removed the sheath was removed good hemostasis was achieved using TR banding patient was transferred to the postop putting in stable condition ANGIOGRAPHIC RESULTS The left main artery Normal The left anterior descending artery Has proximal 20% stenosis with a mid vessel 80% concentric stenosis followed by 40% stenosis The circumflex artery Mild 10% luminal regularities The right coronary artery Large dominant with diffuse 10% luminal regularities The [place] ventriculogram reveals Reduced ejection fraction estimated at 30% with anterior wall hypokinesis The left ventricular end-diastolic pressure 25 mmHg IMPRESSION Severe disease in the mid LAD as described above Successful stenting of the mid LAD severe disease reduced to 0% with 1 drug-eluting stent Likely previous anterior SC based on LV dysfunction and stent of coronary artery disease Reduced ejection fraction Elevated LVEDP PLAN 1. Dual antiplatelet therapy 2. Standard therapy for LV dysfunction 3. Standard therapy for coronary artery disease 4. Consider LifeVest if patient is a candidate 5. Further diuresis due to elevated LVEDP 6. Cardiac rehabilitation 7. Avoidance of tobacco products Electronically signed by : Aly Zimmerman MD 11/05/2024 13:05:46
--- NOTE | 2024-11-05 09:32 | P.PN_ITS ---
Subjective *Date: 11/05/24 *Time: 11:49 Interval history: No acute respiratory vents overnight. Patient denies any new respiratory complaints Pulmonology Exam Inpatient Vital signs and Labs for Last 24 Hours: Temp Pulse Resp BP Pulse Ox O2 Del Method O2 Flow Rate 98 F 86 18 156/84 H 96 Room Air 4 11/05/24 08:00 11/05/24 08:00 11/05/24 08:00 11/05/24 08:00 11/05/24 08:00 11/05/24 08:00 11/05/24 06:40 FiO2 40 11/04/24 23:25 Laboratory Results - last 24 hr 11/04/24 09:20: Vancomycin Trough 18.5 H 11/04/24 12:50: VBG pH 7.43 H, VBG pCO2 64.5 H, VBG pO2 37.9, VBG HCO3 41.9 H, VBG Total CO2 43.9 H, VBG O2 Saturation 76.5 H, VBG Base Excess 17.6 H, VBG Lactic Acid 1.8 11/05/24 05:54: WBC 13.6 H, RBC 4.14 L, Hgb 12.3 L, Hct 40.8 L, MCV 98.6 H, MCH 29.7, MCHC 30.1 L, RDW 12.7, Plt Count 354, MPV 10.4, Neut % (Auto) 76.4, Lymph % (Auto) 12.6, [place] % (Auto) 6.3, Eos % (Auto) 0.8, Baso % (Auto) 0.5, Neut # (Auto) 10.4 H, Lymph # (Auto) 1.7, [place] # (Auto) 0.9, Eos # (Auto) 0.1, Baso # (Auto) 0.1, Sodium 143, Potassium 4.4, Chloride 94 L, Carbon Dioxide 43 H*, Anion Gap 10.4, BUN 38 H, Creatinine 1.40 H, Estimated Creat Clear 76, Estimated GFR 50 L, Est GFR ( Amer) 61, Glucose 89, Calcium 8.5, Magnesium 2.5 H D, Total Bilirubin 0.3, AST 33, ALT 26, Alkaline Phosphatase 83, Total Protein 6.6, Albumin 3.3 L, Globulin 3.3 H, Albumin/Globulin Ratio 1.0 L I & O for Labs for Last 24 Hours: Intake & Output 11/02/24 11/03/24 11/04/24 11/05/24 23:59 23:59 23:59 23:59 Intake Total 1430 / 1680 800 / 1200 1740 / 1940 200 / 200 Output Total 1125 / 1125 2700 / 2700 1975 / 2200 225 / 225 Balance 305 / 555 -1900 / -1500 -235 / -260 -25 / -25 Weight 239 lb 235 lb 12.8 oz 235 lb 14.314 oz 234 lb 4 oz Microbiology Reports for the Last 24 Hours: Microbiology 11/01/24 21:26 Sputum - Expectorated Sputum Gram Stain - Final 11/01/24 21:26 Sputum - Expectorated Sputum Sputum Culture - Final 10/31/24 11:55 Blood Blood Culture - Preliminary NO GROWTH AFTER 4 DAYS 10/31/24 11:55 Blood Blood Culture - Preliminary NO GROWTH AFTER 4 DAYS 11/03/24 15:20 Sputum - Expectorated Sputum Gram Stain - Final Assessment and Plan *Assessment and plan (1) Acute on chronic hypoxic respiratory failure: Status: Acute Category: Medical Code(s): J96.21 - Acute and chronic respiratory failure with hypoxia (2) Hypercapnic respiratory failure: Status: Acute Category: Medical Code(s): J96.92 - Respiratory failure, unspecified with hypercapnia (3) Pneumonia: Status: Chronic Qualifiers: Laterality: right Lung location: lower lobe of lung Pneumonia type: due to unspecified organism Qualified Code(s): J18.9 - Pneumonia, unspecified organism Category: Medical Code(s): J18.9 - Pneumonia, unspecified organism Plan Mr. Poon is a 69-year-old male greater than [id number] smoking history COPD, chronic hypoxic respiratory failure prior history of right lower lobe pneumonia presented today worsening respiratory status hypercarbic respiratory failure pulmonary was called for further evaluation and management. Patient with progressively worsening respiratory's for 10 to 14 days prior to hospital admission with worsening cough productive phlegm. CTA upon admission no evidence of pulmonary embolism, right middle and lower lobe airspace disease (predominant right lower lobe). Blood gas upon admission with a pH of 7.19 and pCO2 86.4severe hypercarbic respiratory failure needing noninvasive ventilatory therapy upon admission. Chest x-ray from this morning reviewed, improvement in the noted right lower lobe consolidative changes. Comprehensive respiratory viral PCR panel negative. Afebrile. Hemodynamically stable. Leukocytosis improving. On examination patient does not appear to be in any severe respiratory distress. Bilateral wheezing noted on auscultation. On nasal cannula saturating 90% and above. Blood cultures no growth 48 hours. Sputum culture preliminary no reportable results Interval Update: Antibiotics changed from vancomycin and Zosyn to levofloxacin. Off BiPAP for the last 72 hours, blood gas from yesterday off BiPAP showed chronic hypercarbic respiratory failure with a pH of 7.43 and pCO2 64.5, venous Plan: Continue levofloxacin to complete a total of 7-day course. Repeat sputum cultures rare gram-positive cocci and few budding yeast. Follow with speech and swallow recommendations Trelegy 100 inhaler along with DuoNebs 4 times daily as needed. No need for BiPAP therapy upon discharge. Will follow as an outpatient basis. Continue oxygen supplementation via nasal cannula to maintain O2 saturation goal of 90% and above
--- NOTE | 2024-11-05 09:47 | EXP.CARD.PN ---
Subjective Subjective Date: 11/05/24 Time: 09:47 Principal diagnosis: Pneumonia, Cardiomyopathy, NSTEMI Interval history: 69 yo WM in bed sleeping initially in NAD. No complaints overnight. Breathing better. Tele shows continued sinus rhythm Exam Data for Last 24 hours Vital signs and Labs for Last 24 Hours: Temp Pulse Resp BP Pulse Ox O2 Del Method O2 Flow Rate 98 F 86 18 156/84 H 96 Nasal Cannula 4 11/05/24 08:00 11/05/24 08:00 11/05/24 08:00 11/05/24 08:00 11/05/24 08:00 11/05/24 08:00 11/05/24 08:00 FiO2 40 11/04/24 23:25 Laboratory Results - last 24 hr 11/04/24 09:20: Vancomycin Trough 18.5 H 11/04/24 12:50: VBG pH 7.43 H, VBG pCO2 64.5 H, VBG pO2 37.9, VBG HCO3 41.9 H, VBG Total CO2 43.9 H, VBG O2 Saturation 76.5 H, VBG Base Excess 17.6 H, VBG Lactic Acid 1.8 11/05/24 05:54: WBC 13.6 H, RBC 4.14 L, Hgb 12.3 L, Hct 40.8 L, MCV 98.6 H, MCH 29.7, MCHC 30.1 L, RDW 12.7, Plt Count 354, MPV 10.4, Neut % (Auto) 76.4, Lymph % (Auto) 12.6, [place] % (Auto) 6.3, Eos % (Auto) 0.8, Baso % (Auto) 0.5, Neut # (Auto) 10.4 H, Lymph # (Auto) 1.7, [place] # (Auto) 0.9, Eos # (Auto) 0.1, Baso # (Auto) 0.1, Sodium 143, Potassium 4.4, Chloride 94 L, Carbon Dioxide 43 H*, Anion Gap 10.4, BUN 38 H, Creatinine 1.40 H, Estimated Creat Clear 76, Estimated GFR 50 L, Est GFR ( Amer) 61, Glucose 89, Calcium 8.5, Magnesium 2.5 H D, Total Bilirubin 0.3, AST 33, ALT 26, Alkaline Phosphatase 83, Total Protein 6.6, Albumin 3.3 L, Globulin 3.3 H, Albumin/Globulin Ratio 1.0 L I & O for Last 24 hours: Intake & Output 11/02/24 11/03/24 11/04/24 11/05/24 11:59 11:59 11:59 11:59 Intake Total 2069.507 / 2069.507 1130 / 1130 1090 / 1090 1060 / 1060 Output Total 1170 / 1170 1775 / 1775 2300 / 2675 1250 / 1250 Balance 899.507 / 899.507 -645 / -645 -1210 / -1585 -190 / -190 Weight 239 lb 235 lb 12.8 oz 236 lb 15.951 oz 234 lb 4 oz Microbiology Reports for the Last 24 Hours: Microbiology 11/01/24 21:26 Sputum - Expectorated Sputum Gram Stain - Final 11/01/24 21:26 Sputum - Expectorated Sputum Sputum Culture - Final 10/31/24 11:55 Blood Blood Culture - Preliminary NO GROWTH AFTER 4 DAYS 10/31/24 11:55 Blood Blood Culture - Preliminary NO GROWTH AFTER 4 DAYS 11/03/24 15:20 Sputum - Expectorated Sputum Gram Stain - Final Constitutional Constitutional: no acute distress *Routine Respiratory Exam Respiratory: Present diminished air movement; Absent wheezes *Routine Cardiovascular Exam Cardiovascular: Present RRR Progress Note: A&P Assessment and plan (1) Acute on chronic hypoxic respiratory failure: Status: Acute (2) Hypercapnic respiratory failure: Status: Acute (3) Pneumonia: Status: Chronic (4) Acute HFrEF (heart failure with reduced ejection fraction): Status: Acute (5) Cardiomyopathy: Status: Acute Assessment and Plan Assessment and Plan for All Diagnoses:: 1. Acute on chronic hypoxemic resp failure with sepsis related to bilateral pneumonia (right greater than left) -on Levaquin and steroids -on nasal cannula -pulmonary consulted -No PE on chest CTA -BNP 393 on admission 2. A. fib with RVR -on metoprolol succ 100 mg BID (increased overnight). Increase as BP allows -on digoxin -on Lovenox 110 mg Q12 hrs, will hold for cath today -converted to NSR after IV digoxin 11/03/2024 -CHADS VASC score of 4 (CHF, HTN, WV, age) -start eliquis tomorrow 3. Type II NSTEMI, HFrEF -heart score of 7 (mod suspicion, EKG non-specific due to LBBB, age, >3 CRF's, elevated trop) -add aspirin -continue lovenox -Echo shows EF 30% with distal and apical LV wall akinesis. -CRP 71.3 -may repeat Bumex after cath 4. Hypertension -controlled but not to goal 5. Hyperlipidemia -check lipids prior to discharge -statin on hold for now 6. LOYD with Cr up to 1.5 -down to 1.4 today Continue lovenox (hold dose for cath) Hold CLAY/ARB/ARNi and aldactone for now due to LOYD [facility] today check lipids in AM Addendum: FLAVIO to LAD placed during [facility] today. DAPT with ASA and plavix Repeat bumex today
[2024-11-05] MEDS: METOPROLOL SUCCINATE XL 100MG TABLET 100 MG PO ×2 (10:13→20:02)
[2024-11-05] MEDS: ASPIRIN EC 81MG TABLET 81 MG PO (10:13)
[2024-11-05] MEDS: DIGOXIN 0.25MG/ML 2ML AMPUL 125 MCG IV (10:13)
[2024-11-05] MEDS: levoFLOXacin 750 MG TABLET PO (10:13)
[2024-11-05] MEDS: METHYLPREDNISOLONE SOD SUCC 40MG VIAL 40 MG IV (10:13)
--- NOTE | 2024-11-05 10:35 | PC.NURSE ---
Pt left floor for heart cath via wheelchair.
[2024-11-05] MEDS: diphenhydrAMINE 50MG/ML VIAL 50 MG IV (10:46)
[2024-11-05] MEDS: HEPARIN 1,000 UNITS/500ML NS (CATH LAB) 3000 UNIT IV (10:46)
[2024-11-05] MEDS: NITROGLYCERIN 800MCG/8ML SYR (CATH LAB) 800 MCG IA (10:47)
[2024-11-05] MEDS: 0.9 % SODIUM CHLORIDE 500 ML 25 ML IV (10:47)
[2024-11-05] MEDS: HEPARIN 1,000 UNITS/ML 10ML VIAL (CATH LAB) 10000 UNIT IV (10:48)
[2024-11-05] MEDS: VERAPAMIL 2.5MG/ML 2ML VIAL 2.5 MG IV (10:48)
[2024-11-05] MEDS: LIDOCAINE 1% 10ML MDV 20 ML IJ (10:48)
[2024-11-05] MEDS: MIDAZOLAM HCL 1MG/ML 5ML VIAL 1 MG IV (11:26)
[2024-11-05] MEDS: FENTANYL 100MCG/2ML VIAL 50 MCG IV (11:26)
[2024-11-05] MEDS: CLOPIDOGREL 300MG TABLET 600 MG PO (11:35)
[2024-11-05] MEDS: IOPAMIDOL-370 (76%);100ML BOTTLE 75 ML IV (11:39)
[2024-11-05 11:40] LABS: CATHL Activated Clotting Time 239 SEC (74-125)
--- NOTE | 2024-11-05 11:55 | PC.NURSE ---
Pt back to floor from lab instructor via stretcher.
--- NOTE | 2024-11-05 13:54 | HMH.SLDYSPHA ---
Speech & Language Evaluation Speech/Language Dysphagia Evaluation Start: 11/05/24 13:39 Freq: ONCE Status: Active Protocol: Document 11/05/24 13:39 JERE (Rec: 11/05/24 13:54 [email or web address] laptop) Co-signed By ST Jacques Dysphagia Assess/Goals/Plan Assessment Date of Evaluation: 11/05/24 Evaluation Type Initial Certification Assessment/Problems concern for aspiration per MD order Does Patient Qualify for Service Yes Qualify/Failure Comment Based on clinical observations made throughout clinical bedside swallow evaluation, pt /family interview, and pt's PMHx, further skilled speech therapy services are warranted for diet tolerance. Recommendations PHYSICIAN CERTIFICATION: The specified therapy services are required, authorized, and reviewed every 30 days. Pt will be seen # times/week 3 for # weeks 4 Diet Recommendations Normal Liquid Type Recommendations Normal/Thin SL Swallow Guidelines Alt bite w/sip thru meal, Standard Aspiration Prec.,Eat at slow rate Dysphagia Swallow Precautions/Strategies Sitting Upright (90 deg),Small Bites and Sips,Alternate Liquids/Solids Plan Anticipate reaching STG in # weeks 2 Anticipate reaching LTG in # weeks 4 Pt/Guardian verbally ack understanding Yes of dx/prognosis/goals G -code Required No STG-Other Comment/Non-Specific 1. Pt will tolerate least restrictive diet for 80% of all PO trials during stay at [facility]. Nursing Associate Goals Diet Regular with Liquids Thin Liquids Education Instructions provided PASSPORT APPLICATION EXAMINER discussed clinical observations made during bedside CSE, diet recommendations, and compensatory strategies/ aspiration precautions with pt /family, nursing, and CM, all of which expressed understanding. Pt/Caregiver able to recall information Able to recall/restate Reinforcement needed No Speech & Language HPI History Present Illness Description of Patient Problem PASSPORT APPLICATION EXAMINER pulled the following form pt's H&P and recent chest x- ray: Mr. Poon is a 69-year-old male with history of hypertension, hyperlipidemia, COPD on 2 L chronically. Presented to the ER with complaint of worsening shortness of breath over the past 3 to 4 days. States he has developed some chills and cough. Cough has become productive. Denies nausea or vomiting. Denies chest pain. Son is with him states he has been very weak and having a difficult time breathing. Patient is fatigued but alert manage. On initial workup in the ER, patient was tachypneic with respiratory rate in the 50s and tachycardic with heart rate above 100. Initial labs show white count of 16.4. Chest CT with right middle and lower lobe pneumonia/airspace disease. Detectable troponin at 0.04. VBG with normal pH of 7.33, pCO2 of 78 on VBG. Medicine consulted for admission and further management of acute on chronic hypoxemic respiratory failure with sepsis and pneumonia In the ER, patient received DuoNebs, Decadron, IV magnesium with some improvement in air movement. Still appears to be in moderate distress with a tachypnea. On evaluation after arriving to the ICU, son is at bedside helps supplement history. States patient wants to be full code. Son is his surrogate decision-maker. Wears 2 L oxygen chronically. No longer smokes. Chest x-ray: IMPRESSION: Right lung base airspace opacity. Right-sided pleural effusion. No significant change from prior. Pt/Caregiver Concerns No concerns with swallowing expressed by pt or family. Rehab Services Assessed Speech therapy Is this evaluation r/t stroke? No Therapy History Seen by other SL therapists No General Information General Current Food Consistancy Regular,Thin Liquids Dentition Poor Dentition Oxygen Status Nasal Cannula Facial Symmetry Symmetrical Patient Orientation Person,Place,Time,Situation Ability to Follow Directions Excellent Communication Ability No Impairment Dysphagia:Food Presentation Evaluation Food Type Pureed,Mechanical Soft,Regular ,Liquid,Pudding Pudding Consistency Liquid Response Residual on tongue Dysphagia Evaluation Mechanical Soft Residual on tongue Food Behavior Response Dysphagia Evaluation Regular Food Residual on tongue Behavior Response Dysphagia Evaluation Summary A clinical bedside swallow evaluation was administered this afternoon with pt sitting upright in bed, with nasal cannula, and poor dentition. Pt was agreeable to CSE, and stated he did not have any concerns with his swallowing. PASSPORT APPLICATION EXAMINER administered the following bolus consistencies: thin liquid (water) via cup and straw, pudding, puree ( applesauce), mechanical soft ( cookie), and regular (jaden cracker). Pt did not exhibit any overt s/sx of aspiration on any consistency trialed. Pt demonstrated adequate labial seal on all consistencies trialed. Pt was observed to have minimal lingual residue during pudding, mech soft, and regular food trials, which were cleared with liquid wash. Pt demonstrated adequate mastication and manipulation of bolus on all consistencies trialed. PASSPORT APPLICATION EXAMINER recommends regular food/thin liquid diet w/ aspiration precautions including sitting upright 30- 60 mins after meal/during meal , small bites/sips, alt. bites /sips, and slow rate. PASSPORT APPLICATION EXAMINER will fu for diet tolerance. Stroke Dysphagia Assessment PHYSICIAN CERTIFICATION: I certify the specified therapy services for Michael Poon are required, authorized, and reviewed every 30 days.
[2024-11-05] MEDS: BUMETANIDE 1MG/4ML VIAL 1 MG IV (14:09)
--- NOTE | 2024-11-05 15:46 | EXP.PN ---
Subjective *Date: 11/05/24 *Time: 21:36 Interval history: Feeling much better today, breathing better. Received 1 stent to the LAD. Cardiology following, plan to start GDMT tomorrow pending renal function. Exam Data for Last 24 hours Vital signs and Labs for Last 24 Hours: Temp Pulse Resp BP Pulse Ox O2 Del Method O2 Flow Rate 98.2 F 76 20 161/96 H 91 L Nasal Cannula 4 11/05/24 12:00 11/05/24 14:15 11/05/24 14:15 11/05/24 14:15 11/05/24 14:15 11/05/24 14:15 11/05/24 14:15 FiO2 40 11/04/24 23:25 Laboratory Results - last 24 hr 11/05/24 05:54: WBC 13.6 H, RBC 4.14 L, Hgb 12.3 L, Hct 40.8 L, MCV 98.6 H, MCH 29.7, MCHC 30.1 L, RDW 12.7, Plt Count 354, MPV 10.4, Neut % (Auto) 76.4, Lymph % (Auto) 12.6, [place] % (Auto) 6.3, Eos % (Auto) 0.8, Baso % (Auto) 0.5, Neut # (Auto) 10.4 H, Lymph # (Auto) 1.7, [place] # (Auto) 0.9, Eos # (Auto) 0.1, Baso # (Auto) 0.1, Sodium 143, Potassium 4.4, Chloride 94 L, Carbon Dioxide 43 H*, Anion Gap 10.4, BUN 38 H, Creatinine 1.40 H, Estimated Creat Clear 76, Estimated GFR 50 L, Est GFR ( Amer) 61, Glucose 89, Calcium 8.5, Magnesium 2.5 H D, Total Bilirubin 0.3, AST 33, ALT 26, Alkaline Phosphatase 83, Total Protein 6.6, Albumin 3.3 L, Globulin 3.3 H, Albumin/Globulin Ratio 1.0 L 11/05/24 12:21: Activated Clotting Time 239 H* I & O for Last 24 hours: Intake & Output 11/02/24 11/03/24 11/04/24 11/05/24 23:59 23:59 23:59 23:59 Intake Total 1430 / 1680 800 / 1200 1740 / 1940 200 / 200 Output Total 1125 / 1125 2700 / 2700 1974 / 2200 225 / 225 Balance 305 / 555 -1900 / -1500 -235 / -260 - / 25 Weight 108.409 kg 106.957 kg 107 kg 106.254 kg Microbiology Reports for the Last 24 Hours: Microbiology 10/31/24 11:55 Blood Blood Culture - Final NO GROWTH AFTER 5 DAYS 10/31/24 11:55 Blood Blood Culture - Final NO GROWTH AFTER 5 DAYS 11/03/24 15:20 Sputum - Expectorated Sputum Gram Stain - Final 11/03/24 15:20 Sputum - Expectorated Sputum Sputum Culture - Preliminary Gram Negative Rods 11/01/24 21:26 Sputum - Expectorated Sputum Gram Stain - Final 11/01/24 21:26 Sputum - Expectorated Sputum Sputum Culture - Final Constitutional Constitutional: no acute distress *Routine HEENT Exam Head: Present normocephalic Eye: Present EOMI and PERRL ENT: Present mucous membranes moist *Routine Neck Exam Neck: Present supple; Absent lymphadenopathy *Routine Respiratory Exam Respiratory: Present CTA bilaterally *Routine Cardiovascular Exam Cardiovascular: Present RRR *Routine Abdominal Exam Abdominal: Present soft and normoactive bowel sounds; Absent tenderness *Routine Extremities Exam Extremities: Absent cyanosis, clubbing or edema *Routine Skin Exam Skin: Present warm; Absent rash *Routine Neurological Exam Neurological: Present alert and oriented X3 Assessment and Plan *Assessment and plan (1) Severe sepsis: Status: Acute Category: Medical Code(s): A41.9 - Sepsis, unspecified organism; R65.20 - Severe sepsis without septic shock (2) Acute on chronic hypoxic respiratory failure: Status: Acute Category: Medical Code(s): J96.21 - Acute and chronic respiratory failure with hypoxia (3) Acute exacerbation of chronic obstructive pulmonary disease: Status: Acute Category: Medical Code(s): J44.1 - Chronic obstructive pulmonary disease with (acute) exacerbation (4) Right lower lobe pneumonia: Status: Acute Qualifiers: Pneumonia type: due to unspecified organism Qualified Code(s): J18.9 - Pneumonia, unspecified organism Category: Medical Code(s): J18.9 - Pneumonia, unspecified organism (5) Elevated troponin: Status: Acute Category: Medical Code(s): R79.89 - Other specified abnormal findings of blood chemistry (6) WISAM (obstructive sleep apnea): Problem Comment: Newly diagnosed mild WISAM with hypoxemia Status: Acute Category: Medical Code(s): G47.33 - Obstructive sleep apnea (adult) (pediatric) (7) History of smoking 30 or more pack years: Status: Chronic Category: Social Hx Code(s): Z87.891 - Personal history of nicotine dependence (8) Obesity (BMI 30.0-34.9): Status: Acute Category: Medical Code(s): E66.811 - Obesity, class 1 (9) Hypercapnic respiratory failure: Status: Acute Category: Medical Code(s): J96.92 - Respiratory failure, unspecified with hypercapnia (10) A-fib: Status: Acute Qualifiers: Atrial fibrillation type: unspecified Qualified Code(s): I48.91 - Unspecified atrial fibrillation Category: Medical Code(s): I48.91 - Unspecified atrial fibrillation Plan Patient is a 69-year-old male with COPD on chronic oxygen at 2 L. Presents with worsening shortness of breath and dyspnea over the past 3 to 4 days. Found to be in severe sepsis with pneumonia and acute on chronic hypoxemic respiratory failure. #Severe sepsis #Acute on chronic hypoxemic respiratory failure with hypercapnia #Right lower lobe pneumonia #COPD exacerbation - Initially met sepsis criteria with tachycardia, tachypnea, leukocytosis, pneumonia on chest imaging. Severe criteria with endorgan damage given NSTEMI/elevation of troponin. ? Tachycardia, tachypnea resolved. WBC improved to 13.6 today. ? CXR 11/03/2024 shows right lower lobe pneumonia with associated effusion. ? Pulmonology following and providing recommendations. ? Continue levofloxacin. ? Continue Solu-Medrol 40 mg daily. ? Weaned to 4 L nasal cannula. Uses BiPAP nightly. ? Follow-up repeat sputum culture. - Repeat CBC, CMP, magnesium ordered for the morning #A-fib RVR #Hyperlipidemia #NSTEMI #Acute HFrEF ? Cardiology consulted, continue metoprolol succinate 100 mg twice daily, amiodarone 400 mg twice daily, digoxin 125 mg daily. ? Converted to NSR with digoxin. ? S/p PCI to 11/05/2024 with 1 stent to the LAD. ? Continue aspirin, statin. Started Plavix. - Echo has some wall motion abnormalities, with preliminary results showing reduced EF of 30%. ? Cardiology following, plans to start GDMT tomorrow pending renal function after PCI. Do not think patient will be a good candidate for LifeVest as he will likely not wear it. Will reevaluate tomorrow. ? Will hold Bumex, continues to be euvolemic. Kidney function at baseline with 47, creatinine 1.4, magnesium 2.9, potassium 5.1 Given severity of illness hold home Lipitor, diclofenac Obesity complicates all aspects of his care Full code Cardiac diet TLOV
[2024-11-05] MEDS: ATORVASTATIN 40MG TABLET 40 MG PO (20:02)
[2024-11-06] VITALS: BP 145/87; PULSE 60; PULSE 64; RESP 16; TEMP 36.8
[2024-11-06] MEDS: ENOXAPARIN 120MG/0.8ML SYRINGE 110 MG SUBCUT (00:44)
[2024-11-06 04:00] VITALS: BP 140/82; PULSE 60; PULSE 70; RESP 16; TEMP 36.7; O2SAT 93; BMI 32.7
--- NOTE | 2024-11-06 04:53 | PC.NURSE ---
Pt A&OX4. Expiratory wheezing heard in lungs and bowel sounds active. Pt was on 3L most of the night but 02 sats dropped to 86% and was increased to 4L. He has remained NSR with a BBB on tele. Dressing on right radial cath site is c/d/i. He has ambulated to bathroom with standby assist. No complaints at this time, call light within reach.
[2024-11-06 06:10] VITALS: O2SAT 93
[2024-11-06] MEDS: FLUTICASONE/UMECLIDIN/VILANTER 100/62.5/25MCG INHALER 1 PUFF IH (06:10)
[2024-11-06 06:59] LABS: Lactate Venous 1.2 mmol/L (0.4-2.0); VBG Base Excess 13.4 mmol/L (-2.4-2.3); VBG Oxygen Saturation 85.8 % (50-70); VBG PCO2 51.4 mmol/L (35-51); VBG PH 7.48 mmol/L (7.31-7.41); VBG PO2 52.2 mmol/L (28-40); VBG Total CO2 38.6 mmol/L (23-27)
[2024-11-06 07:16] LABS: Basophils % 0.3 % (0.1-2.0); Eosinophils # 0.1 K/mm3 (0.0-0.4); Eosinophils % 0.7 % (0.1-12.0); Hematocrit 38.6 % (42.0-52.0); Hemoglobin 12.4 g/dL (14.1-18.0); Lymphocytes # 1.4 K/mm3 (0.7-4.5); Mean Corpuscular HGB Conc 32.1 g/dL (31.8-35.4); Mean Corpuscular Hemoglobin 30.5 pg (27.0-31.2); Mean Corpuscular Volume 94.8 fl (80-94); Mean Platelet Volume 10.4 fl (7.4-10.4); Monocytes # 0.9 K/mm3 (0.1-1.0); Monocytes % 6.4 % (1.7-9.3); Neutrophils # 11.2 K/mm3 (1.8-7.8); Neutrophils % 80.9 % (37.0-80.0); Platelet Count 307 K/mm3 (142-424); Red Blood Count 4.07 M/mm3 (4.60-6.20); Red Cell Distribution Width 12.7 % (11.5-17.5); White Blood Count 13.9 K/mm3 (4.8-10.8)
[2024-11-06 07:50] LABS: Alanine Aminotransferase 27 U/L (12-78); Albumin Level 3.1 g/dl (3.5-5.0); Alkaline Phosphatase 73 U/L (38-126); Aspartate Amino Transferase 37 U/L (17-59); Bilirubin,Total 0.3 mg/dl (0.2-1.3); Blood Urea Nitrogen 35 mg/dl (9-20); Calcium 8.6 mg/dl (8.4-10.2); Chloride 96 mmol/L (98-107); Creatinine Clearance Estimated 88 mL/min (50-200); Estimated Glomerular Filt Rate 60 ml/min (>60); GFR (African American) 73 ML/MIN (>60); Globulin 3.1 g/dL (1.3-3.2); Glucose 120 mg/dl (74-100); Magnesium 2.2 mg/dl (1.6-2.3); Potassium 4.2 mmoL/L (3.5-5.1); Sodium 137 mmol/L (136-145); Total Protein,Serum 6.2 g/dl (6.3-8.2)
[2024-11-06 08:00] VITALS: BP 130/75; PULSE 70; PULSE 71; RESP 16; TEMP 36.7; O2SAT 94
[2024-11-06 08:02] LABS: Anion Gap 7.2 mEq/L (5-15); Carbon Dioxide 38 mmol/L (22.0-30.0)
[2024-11-06 08:22] VITALS: PULSE 71
[2024-11-06] MEDS: METHYLPREDNISOLONE SOD SUCC 40MG VIAL 40 MG IV (08:22)
[2024-11-06] MEDS: DIGOXIN 0.125MG TABLET 125 MCG PO (08:22)
[2024-11-06] MEDS: METOPROLOL SUCCINATE XL 100MG TABLET 100 MG PO (08:22)
[2024-11-06] MEDS: ASPIRIN EC 81MG TABLET 81 MG PO (08:22)
[2024-11-06] MEDS: APIXABAN 5MG TABLET 5 MG PO (08:22)
[2024-11-06] MEDS: CLOPIDOGREL 75MG TAB 75 MG PO (08:22)
[2024-11-06 08:23] LABS: Chol/HDL Ratio 4.8 (1-3.5); Cholesterol 111 mg/dl (140-200); HDL Cholesterol 23 mg/dl (40-60); Triglycerides 166 mg/dl (30-150); VLDL Cholesterol 33 mg/dL (0-40)
[2024-11-06 08:33] LABS: Direct LDL Cholesterol 52.17 mg/dL (100-129)
--- NOTE | 2024-11-06 09:24 | P.PN_ITS ---
Subjective Subjective Date: 11/06/24 Time: 09:24 Principal diagnosis: Pneumonia, Cardiomyopathy, NSTEMI Interval history: 69 yo WM in bed in NAD. Feeling better. Cath results reviewed with patient. Renal functions continue to improve. Exam Data for Last 24 hours Vital signs and Labs for Last 24 Hours: Temp Pulse Resp BP Pulse Ox O2 Del Method O2 Flow Rate 98.1 F 71 16 130/75 94 L Nasal Cannula 4 11/06/24 08:00 11/06/24 08:22 11/06/24 08:00 11/06/24 08:00 11/06/24 08:00 11/06/24 08:00 11/06/24 06:42 FiO2 40 11/04/24 23:25 Laboratory Results - last 24 hr 11/05/24 12:21: Activated Clotting Time 239 H* 11/06/24 06:28: WBC 13.9 H, RBC 4.07 L, Hgb 12.4 L, Hct 38.6 L, MCV 94.8 H, MCH 30.5, MCHC 32.1, RDW 12.7, Plt Count 307, MPV 10.4, Neut % (Auto) 80.9 H, Lymph % (Auto) 10.0, [place] % (Auto) 6.4, Eos % (Auto) 0.7, Baso % (Auto) 0.3, Neut # (Auto) 11.2 H, Lymph # (Auto) 1.4, [place] # (Auto) 0.9, Eos # (Auto) 0.1, Baso # (Auto) 0.0, Sodium 137, Potassium 4.2, Chloride 96 L, Carbon Dioxide 38 H, Anion Gap 7.2, BUN 35 H, Creatinine 1.20, Estimated Creat Clear 88, Estimated GFR 60, Est GFR ( Amer) 73, Glucose 120 H, Calcium 8.6, Magnesium 2.2 D, Total Bilirubin 0.3, AST 37, ALT 27, Alkaline Phosphatase 73, Total Protein 6.2 L, Albumin 3.1 L, Globulin 3.1, Albumin/Globulin Ratio 1.0 L, Triglycerides 166 H, Cholesterol 111 L, LDL Cholesterol Direct 52.17 L, VLDL Cholesterol 33, HDL Cholesterol 23 L, Cholesterol/HDL Ratio 4.8 H 11/06/24 06:50: VBG pH 7.48 H, VBG pCO2 51.4 H, VBG pO2 52.2 H, VBG HCO3 37.0 H, VBG Total CO2 38.6 H, VBG O2 Saturation 85.8 H, VBG Base Excess 13.4 H, VBG Lactic Acid 1.2 I & O for Last 24 hours: Intake & Output 11/03/24 11/04/24 11/05/24 11/06/24 11:59 11:59 11:59 11:59 Intake Total 1130 / 1130 1090 / 1090 1060 / 1060 610 / 610 Output Total 1775 / 1775 2300 / 2675 1250 / 1250 1950 / 1950 Balance -645 / -645 -1210 / -1585 -190 / -190 -1340 / -1340 Weight 235 lb 12.8 oz 236 lb 15.951 oz 234 lb 4 oz 233 lb 15.378 oz Microbiology Reports for the Last 24 Hours: Microbiology 11/03/24 15:20 Sputum - Expectorated Sputum Gram Stain - Final 11/03/24 15:20 Sputum - Expectorated Sputum Sputum Culture - Final Stenotrophomonas maltophilia 10/31/24 11:55 Blood Blood Culture - Final NO GROWTH AFTER 5 DAYS 10/31/24 11:55 Blood Blood Culture - Final NO GROWTH AFTER 5 DAYS Constitutional Constitutional: no acute distress *Routine Respiratory Exam Respiratory: Present CTA bilaterally *Routine Cardiovascular Exam Cardiovascular: Present RRR Progress Note: A&P Assessment and plan (1) Severe sepsis: Status: Acute (2) Acute on chronic hypoxic respiratory failure: Status: Acute (3) Acute exacerbation of chronic obstructive pulmonary disease: Status: Acute (4) Right lower lobe pneumonia: Status: Acute (5) Elevated troponin: Status: Acute (6) WISAM (obstructive sleep apnea): Problem details: Newly diagnosed mild WISAM with hypoxemia Status: Acute (7) History of smoking 30 or more pack years: Status: Chronic (8) Obesity (BMI 30.0-34.9): Status: Acute (9) Hypercapnic respiratory failure: Status: Acute (10) A-fib: Status: Acute (11) Pneumonia: Status: Chronic (12) Acute HFrEF (heart failure with reduced ejection fraction): Status: Acute (13) Cardiomyopathy: Status: Acute Assessment and Plan Assessment and Plan for All Diagnoses:: 1. Acute on chronic hypoxemic resp failure with sepsis related to bilateral pneumonia (right greater than left) -on Levaquin and steroids -on nasal cannula -pulmonary consulted -No PE on chest CTA -BNP 393 on admission 2. A. fib with RVR -on metoprolol succ 100 mg BID -on digoxin (converted to NSR after IV digoxin 11/03/2024) -CHADS VASC score of 4 (CHF, HTN, W[place], age) -start eliquis today 3. Type II NSTEMI, HFrEF -FLAVIO to LAD, 11/05/2024. DAPT with ASA/plavix -heart score of 7 (mod suspicion, EKG non-specific due to LBBB, age, >3 CRF's, elevated trop) -Echo shows EF 30% with distal and apical LV wall akinesis. -No lifevest. Compliance would be an issue. 4. Hypertension -controlled 5. Hyperlipidemia -LDL 52 -on statin 6. LOYD with Cr up to 1.5 -down to 1.2 today Start entresto and resume eliquis No LifeVest. Compliance will be an issue. Pt is stable from cardiology standpoint for discharge home. Med recs: Metoprolol succ 100 mg BID Entresto / mg BID digoxin 0.125 mg daily atorvastatin 40 mg daily aspirin 81 mg daily for 30 days only plavix 75 mg daily Eliquis 5 mg BID BMP in one week Follow up in our office in one week.
--- NOTE | 2024-11-06 09:30 | EXP.PULM.PN ---
Subjective *Date: 11/06/24 *Time: 13:13 Interval history: No acute respiratory events overnight. Patient denies any new respiratory complaints. Pulmonology Exam Inpatient Vital signs and Labs for Last 24 Hours: Temp Pulse Resp BP Pulse Ox O2 Del Method O2 Flow Rate 98.1 F 71 16 130/75 94 L Nasal Cannula 4 11/06/24 08:00 11/06/24 08:22 11/06/24 08:00 11/06/24 08:00 11/06/24 08:00 11/06/24 09:00 11/06/24 09:00 FiO2 40 11/04/24 23:25 Laboratory Results - last 24 hr 11/05/24 12:21: Activated Clotting Time 239 H* 11/06/24 06:28: WBC 13.9 H, RBC 4.07 L, Hgb 12.4 L, Hct 38.6 L, MCV 94.8 H, MCH 30.5, MCHC 32.1, RDW 12.7, Plt Count 307, MPV 10.4, Neut % (Auto) 80.9 H, Lymph % (Auto) 10.0, [place] % (Auto) 6.4, Eos % (Auto) 0.7, Baso % (Auto) 0.3, Neut # (Auto) 11.2 H, Lymph # (Auto) 1.4, [place] # (Auto) 0.9, Eos # (Auto) 0.1, Baso # (Auto) 0.0, Sodium 137, Potassium 4.2, Chloride 96 L, Carbon Dioxide 38 H, Anion Gap 7.2, BUN 35 H, Creatinine 1.20, Estimated Creat Clear 88, Estimated GFR 60, Est GFR ( Amer) 73, Glucose 120 H, Calcium 8.6, Magnesium 2.2 D, Total Bilirubin 0.3, AST 37, ALT 27, Alkaline Phosphatase 73, Total Protein 6.2 L, Albumin 3.1 L, Globulin 3.1, Albumin/Globulin Ratio 1.0 L, Triglycerides 166 H, Cholesterol 111 L, LDL Cholesterol Direct 52.17 L, VLDL Cholesterol 33, HDL Cholesterol 23 L, Cholesterol/HDL Ratio 4.8 H 11/06/24 06:50: VBG pH 7.48 H, VBG pCO2 51.4 H, VBG pO2 52.2 H, VBG HCO3 37.0 H, VBG Total CO2 38.6 H, VBG O2 Saturation 85.8 H, VBG Base Excess 13.4 H, VBG Lactic Acid 1.2 Temp Pulse Resp BP Pulse Ox O2 Del Method O2 Flow Rate 98.1 F 131 H 34 H 120/81 93 L Nasal Cannula 4 11/03/24 08:02 11/03/24 09:41 11/03/24 08:02 11/03/24 08:02 11/03/24 08:02 11/03/24 08:02 11/03/24 08:02 FiO2 40 11/02/24 22:00 Laboratory Results - last 24 hr 11/02/24 09:04: WBC 18.1 H, RBC 3.66 L, Hgb 11.2 L, Hct 36.4 L, MCV 99.5 H, MCH 30.6, MCHC 30.8 L, RDW 12.9, Plt Count 362, MPV 10.0, Neut % (Auto) 86.8 H, Lymph % (Auto) 6.4 L, [place] % (Auto) 2.6, Eos % (Auto) 0.0 L, Baso % (Auto) 0.6, Neut # (Auto) 15.7 H, Lymph # (Auto) 1.2, [place] # (Auto) 0.5, Eos # (Auto) 0.0, Baso # (Auto) 0.1, Total Counted 100, Neutrophils % (Manual) 90 H, Lymphocytes % (Manual) 7 L, Monocytes % (Manual) 3, Platelet Estimate Normal, RBC Morphology Normal, Sodium 140, Potassium 4.1, Chloride 101, Carbon Dioxide 37 H, Anion Gap 6.1, BUN 47 H D, Creatinine 1.50 H D, Estimated Creat Clear 72, Estimated GFR 47 L, Est GFR ( Amer) 56 L D, Glucose 177 H, Calcium 7.3 L, Phosphorus 3.9, Magnesium 2.9 H D, Total Bilirubin 0.2, AST 26 D, ALT 26, Alkaline Phosphatase 88, Total Protein 6.3, Albumin 3.1 L D, Globulin 3.2, Albumin/Globulin Ratio 1.0 L, Procalcitonin 0.176, Vancomycin Trough 33.0 H 11/03/24 00:34: POC Glucose 146 H 11/03/24 05:31: WBC 16.6 H, RBC 3.82 L, Hgb 11.6 L, Hct 38.2 L, MCV 100.0 H, MCH 30.4, MCHC 30.4 L, RDW 13.0, Plt Count 387, MPV 10.1, Neut % (Auto) 89.2 H, Lymph % (Auto) 5.1 L, [place] % (Auto) 2.1, Eos % (Auto) 0.0 L, Baso % (Auto) 0.4, Neut # (Auto) 14.8 H, Lymph # (Auto) 0.9, [place] # (Auto) 0.4, Eos # (Auto) 0.0, Baso # (Auto) 0.1, Total Counted 100, Neutrophils % (Manual) 93 H, Lymphocytes % (Manual) 7 L, Platelet Estimate Normal, Macrocytosis 1+, Sodium 142, Potassium 5.1 D, Chloride 99, Carbon Dioxide 39 H, Anion Gap 9.1, BUN 43 H, Creatinine 1.40 H, Estimated Creat Clear 76, Estimated GFR 50 L, Est GFR ( Amer) 61, Glucose 160 H, Calcium 8.2 L, Phosphorus 4.0, Magnesium 2.9 H, Total Bilirubin 0.3, AST 30, ALT 25, Alkaline Phosphatase 96, C-Reactive Protein 71.3 H, Total Protein 6.8, Albumin 3.4 L, Globulin 3.4 H, Albumin/Globulin Ratio 1.0 L, Procalcitonin 0.129 I & O for Labs for Last 24 Hours: Intake & Output 11/03/24 11/04/24 11/05/24 11/06/24 23:59 23:59 23:59 23:59 Intake Total 800 / 1200 1740 / 1940 560 / 810 250 / 250 Output Total 2700 / 2700 1975 / 2200 2175 / 2175 0 / 0 Balance -1900 / -1500 -235 / -260 -1615 / -1365 250 / 250 Weight 235 lb 12.8 oz 235 lb 14.314 oz 234 lb 4 oz 233 lb 15.378 oz Intake & Output 10/31/24 11/01/24 11/02/24 11/03/24 23:59 23:59 23:59 23:59 Intake Total 240 / 240 5914.716 / 6014.716 1430 / 1680 590 / 590 Output Total 725 / 825 700 / 715 1125 / 1125 600 / 600 Balance -485 / -585 5214.716 / 5299.716 305 / 555 -10 / -10 Weight 225 lb 238 lb 3.2 oz 239 lb 235 lb 12.8 oz Microbiology Reports for the Last 24 Hours: Microbiology 11/03/24 15:20 Sputum - Expectorated Sputum Gram Stain - Final 11/03/24 15:20 Sputum - Expectorated Sputum Sputum Culture - Final Stenotrophomonas maltophilia 10/31/24 11:55 Blood Blood Culture - Final NO GROWTH AFTER 5 DAYS 10/31/24 11:55 Blood Blood Culture - Final NO GROWTH AFTER 5 DAYS Microbiology 11/01/24 21:26 Sputum - Expectorated Sputum Gram Stain - Final 11/01/24 21:26 Sputum - Expectorated Sputum Sputum Culture - Preliminary 10/31/24 11:55 Blood Blood Culture - Preliminary NO GROWTH AFTER 48 HOURS 10/31/24 11:55 Blood Blood Culture - Preliminary NO GROWTH AFTER 48 HOURS 10/31/24 15:45 Anus CRE Surveillance Culture - Final Negative Constitutional: Present moderate distress Head: Present normocephalic and atraumatic ENT: Present normal exam, normal oropharynx and mucous membranes moist Neck: Present normal inspection and full ROM Respiratory: Present prolonged expiratory phase, respiratory distress, wheezes and able to speak in complete sentences Cardiac: Present S1/S2, Tachycardia and radial pulses present GI: Present soft and distention; Absent tenderness or guarding Skin: Present intact; Absent cyanosis or jaundice Neuro: Present alert, awake and oriented x 3 Extremities: Present normal inspection; Absent clubbing or cyanosis Psychiatric: Present normal affect and cooperative Assessment and Plan *Assessment and plan (1) Acute on chronic hypoxic respiratory failure: Status: Acute Category: Medical Code(s): J96.21 - Acute and chronic respiratory failure with hypoxia (2) Hypercapnic respiratory failure: Status: Acute Category: Medical Code(s): J96.92 - Respiratory failure, unspecified with hypercapnia (3) Pneumonia: Status: Chronic Qualifiers: Laterality: right Lung location: lower lobe of lung Pneumonia type: due to unspecified organism Qualified Code(s): J18.9 - Pneumonia, unspecified organism Category: Medical Code(s): J18.9 - Pneumonia, unspecified organism Plan Mr. Poon is a 69-year-old male greater than [id number] smoking history COPD, chronic hypoxic respiratory failure prior history of right lower lobe pneumonia presented today worsening respiratory status hypercarbic respiratory failure pulmonary was called for further evaluation and management. Patient with progressively worsening respiratory's for 10 to 14 days prior to hospital admission with worsening cough productive phlegm. CTA upon admission no evidence of pulmonary embolism, right middle and lower lobe airspace disease (predominant right lower lobe). Blood gas upon admission with a pH of 7.19 and pCO2 86.4severe hypercarbic respiratory failure needing noninvasive ventilatory therapy upon admission. Chest x-ray from this morning reviewed, improvement in the noted right lower lobe consolidative changes. Comprehensive respiratory viral PCR panel negative. Afebrile. Hemodynamically stable. Leukocytosis improving. On examination patient does not appear to be in any severe respiratory distress. Bilateral wheezing noted on auscultation. On nasal cannula saturating 90% and above. Blood cultures no growth 48 hours. Sputum culture preliminary no reportable results Interval Update: Antibiotics changed from vancomycin and Zosyn to levofloxacin. Stable leukocytosis. Stable oxygen requirements. Off BiPAP with no worsening hypercarbic respiratory failure. Plan: Continue levofloxacin to complete a total of 7-day course. Repeat sputum cultures rare gram-positive cocci and few budding yeast. Follow with speech and swallow recommendations Trelegy 100 inhaler along with DuoNebs 4 times daily as needed. No need for BiPAP therapy upon discharge. Will follow as an outpatient basis. Continue oxygen supplementation via nasal cannula to maintain O2 saturation goal of 90% and above
[2024-11-06] MEDS: levoFLOXacin 750 MG TABLET PO (10:08)
[2024-11-06] MEDS: SACUBITRIL/VALSARTAN 24-26MG TABLET 1 EACH PO (10:08)
--- NOTE | 2024-11-06 11:44 | P.DS_ITS ---
General Admission date:: 10/31/24 HPI HPI HPI: Mr. Poon is a 69-year-old male with history of hypertension, hyperlipidemia, COPD on 2 L chronically. Presented to the ER with complaint of worsening shortness of breath over the past 3 to 4 days. States he has developed some chills and cough. Cough has become productive. Denies nausea or vomiting. Denies chest pain. Son is with him states he has been very weak and having a difficult time breathing. Patient is fatigued but alert manage. On initial workup in the ER, patient was tachypneic with respiratory rate in the 50s and tachycardic with heart rate above 100. Initial labs show white count of 16.4. Chest CT with right middle and lower lobe pneumonia/airspace disease. Detectable troponin at 0.04. VBG with normal pH of 7.33, pCO2 of 78 on VBG. Medicine consulted for admission and further management of acute on chronic hypoxemic respiratory failure with sepsis and pneumonia In the ER, patient received DuoNebs, Decadron, IV magnesium with some improvement in air movement. Still appears to be in moderate distress with a tachypnea. On evaluation after arriving to the ICU, son is at bedside helps supplement history. States patient wants to be full code. Son is his surrogate decision-maker. Wears 2 L oxygen chronically. No longer smokes. Hospital Course Hospital Course Hospital Course: Patient is a 69-year-old male with COPD on chronic oxygen at 2 L. Presents with worsening shortness of breath and dyspnea over the past 3 to 4 days. Found to be in severe sepsis with pneumonia and acute on chronic hypoxemic respiratory failure. #Severe sepsis #Acute on chronic hypoxemic respiratory failure with hypercapnia #Right lower lobe pneumonia #COPD exacerbation - Initially met sepsis criteria with tachycardia, tachypnea, leukocytosis, pneumonia on chest imaging. Severe criteria with endorgan damage given NSTEMI/elevation of troponin. ? CXR 11/03/2024 shows right lower lobe pneumonia with associated effusion. ? Sputum culture growing Stenotrophomonas maltophilia. ? Clinically improved with DuoNebs, Pulmicort, levofloxacin, steroids. ? Weaned back to 2 L, baseline. ? Discharged with levofloxacin for 2 more days and Trelegy 100. ? Will follow-up with pulmonology within 2 weeks. #A-fib RVR #Hyperlipidemia #NSTEMI #HFrEF ? Converted to NSR with digoxin. ? S/p PCI to 11/05/2024 with 1 stent to the LAD. ? Continue aspirin, statin. Started Plavix. - Echo has some wall motion abnormalities, with LVEF 30%. ? Cardiology consulted, started Entresto. Continue metoprolol succinate. Will consider further GDMT on an outpatient basis. ? Discharged with metoprolol succinate 100 mg twice daily, Entresto 24/26 mg twice daily, digoxin 125 mcg, Eliquis 5 mg twice daily, aspirin, Plavix, atorvastatin 40 mg. Exam Data for Last 24 hours Vital signs and Labs for Last 24 Hours: Temp Pulse Resp BP Pulse Ox O2 Del Method O2 Flow Rate 98.1 F 71 16 130/75 94 L Nasal Cannula 4 11/06/24 08:00 11/06/24 08:22 11/06/24 08:00 11/06/24 08:00 11/06/24 08:00 11/06/24 09:00 11/06/24 09:00 FiO2 40 11/04/24 23:25 Laboratory Results - last 24 hr 11/06/24 06:28: WBC 13.9 H, RBC 4.07 L, Hgb 12.4 L, Hct 38.6 L, MCV 94.8 H, MCH 30.5, MCHC 32.1, RDW 12.7, Plt Count 307, MPV 10.4, Neut % (Auto) 80.9 H, Lymph % (Auto) 10.0, [place] % (Auto) 6.4, Eos % (Auto) 0.7, Baso % (Auto) 0.3, Neut # (Auto) 11.2 H, Lymph # (Auto) 1.4, [place] # (Auto) 0.9, Eos # (Auto) 0.1, Baso # (Auto) 0.0, Sodium 137, Potassium 4.2, Chloride 96 L, Carbon Dioxide 38 H, Anion Gap 7.2, BUN 35 H, Creatinine 1.20, Estimated Creat Clear 88, Estimated GFR 60, Est GFR ( Amer) 73, Glucose 120 H, Calcium 8.6, Magnesium 2.2 D, Total Bilirubin 0.3, AST 37, ALT 27, Alkaline Phosphatase 73, Total Protein 6.2 L, Albumin 3.1 L, Globulin 3.1, Albumin/Globulin Ratio 1.0 L, Triglycerides 166 H, Cholesterol 111 L, LDL Cholesterol Direct 52.17 L, VLDL Cholesterol 33, HDL Cholesterol 23 L, Cholesterol/HDL Ratio 4.8 H 11/06/24 06:50: VBG pH 7.48 H, VBG pCO2 51.4 H, VBG pO2 52.2 H, VBG HCO3 37.0 H, VBG Total CO2 38.6 H, VBG O2 Saturation 85.8 H, VBG Base Excess 13.4 H, VBG Lactic Acid 1.2 I & O for Last 24 hours: Intake & Output 11/03/24 11/04/24 11/05/24 11/06/24 23:59 23:59 23:59 23:59 Intake Total 800 / 1200 1740 / 1940 560 / 810 250 / 250 Output Total 2700 / 2700 1975 / 2200 2175 / 2175 0 / 0 Balance -1900 / -1500 -235 / -260 -1615 / -1365 250 / 250 Weight 106.957 kg 107 kg 106.254 kg 106.123 kg Microbiology Reports for the Last 24 Hours: Microbiology 11/03/24 15:20 Sputum - Expectorated Sputum Gram Stain - Final 11/03/24 15:20 Sputum - Expectorated Sputum Sputum Culture - Final Stenotrophomonas maltophilia 10/31/24 11:55 Blood Blood Culture - Final NO GROWTH AFTER 5 DAYS 10/31/24 11:55 Blood Blood Culture - Final NO GROWTH AFTER 5 DAYS Constitutional Constitutional: no acute distress *Routine HEENT Exam Head: Present normocephalic Eye: Present EOMI and PERRL ENT: Present mucous membranes moist *Routine Neck Exam Neck: Present supple; Absent lymphadenopathy *Routine Respiratory Exam Respiratory: Present CTA bilaterally *Routine Cardiovascular Exam Cardiovascular: Present RRR *Routine Abdominal Exam Abdominal: Present soft and normoactive bowel sounds; Absent tenderness *Routine Extremities Exam Extremities: Absent cyanosis, clubbing or edema *Routine Skin Exam Skin: Present warm; Absent rash *Routine Neurological Exam Neurological: Present alert and oriented X3 Results Data Completed and Pending Labs on day of discharge: Labs from last 24 hours 11/06/24 11/06/24 06:50 06:28 WBC 13.9 H RBC 4.07 L Hgb 12.4 L Hct 38.6 L MCV 94.8 H MCH 30.5 MCHC 32.1 RDW 12.7 Plt Count 307 MPV 10.4 Neut % (Auto) 80.9 H Lymph % (Auto) 10.0 [place] % (Auto) 6.4 Eos % (Auto) 0.7 Baso % (Auto) 0.3 Neut # (Auto) 11.2 H Lymph # (Auto) 1.4 [place] # (Auto) 0.9 Eos # (Auto) 0.1 Baso # (Auto) 0.0 VBG pH 7.48 H VBG pCO2 51.4 H VBG pO2 52.2 H VBG HCO3 37.0 H VBG Total CO2 38.6 H VBG O2 Saturation 85.8 H VBG Base Excess 13.4 H VBG Lactic Acid 1.2 Sodium 137 Potassium 4.2 Chloride 96 L Carbon Dioxide 38 H Anion Gap 7.2 BUN 35 H Creatinine 1.20 Estimated Creat Clear 88 Estimated GFR 60 Est GFR ( Amer) 73 Glucose 120 H Calcium 8.6 Magnesium 2.2 D Total Bilirubin 0.3 AST 37 ALT 27 Alkaline Phosphatase 73 Total Protein 6.2 L Albumin 3.1 L Globulin 3.1 Albumin/Globulin Ratio 1.0 L Triglycerides 166 H Cholesterol 111 L LDL Cholesterol Direct 52.17 L VLDL Cholesterol 33 HDL Cholesterol 23 L Cholesterol/HDL Ratio 4.8 H DS: Diagnosis Discharge Diagnosis (1) Severe sepsis: Status: Acute Code(s): A41.9 - Sepsis, unspecified organism; R65.20 - Severe sepsis without septic shock (2) Acute on chronic hypoxic respiratory failure: Status: Acute Code(s): J96.21 - Acute and chronic respiratory failure with hypoxia (3) Acute exacerbation of chronic obstructive pulmonary disease: Status: Acute Code(s): J44.1 - Chronic obstructive pulmonary disease with (acute) exacerbation (4) Right lower lobe pneumonia: Status: Acute Code(s): J18.9 - Pneumonia, unspecified organism Qualifiers: Pneumonia type: due to unspecified organism Qualified Code(s): J18.9 - Pneumonia, unspecified organism (5) Elevated troponin: Status: Acute Code(s): R79.89 - Other specified abnormal findings of blood chemistry (6) WISAM (obstructive sleep apnea): Status: Acute Code(s): G47.33 - Obstructive sleep apnea (adult) (pediatric) Problem details: Newly diagnosed mild WISAM with hypoxemia (7) History of smoking 30 or more pack years: Status: Chronic Code(s): Z87.891 - Personal history of nicotine dependence (8) Obesity (BMI 30.0-34.9): Status: Acute Code(s): E66.811 - Obesity, class 1 (9) Hypercapnic respiratory failure: Status: Acute Code(s): J96.92 - Respiratory failure, unspecified with hypercapnia (10) A-fib: Status: Acute Code(s): I48.91 - Unspecified atrial fibrillation Qualifiers: Atrial fibrillation type: unspecified Qualified Code(s): I48.91 - Unspecified atrial fibrillation (11) Pneumonia: Status: Chronic Code(s): J18.9 - Pneumonia, unspecified organism Qualifiers: Laterality: right Lung location: lower lobe of lung Pneumonia type: due to unspecified organism Qualified Code(s): J18.9 - Pneumonia, unspecified organism (12) Acute HFrEF (heart failure with reduced ejection fraction): Status: Acute Code(s): I50.21 - Acute systolic (congestive) heart failure (13) Cardiomyopathy: Status: Acute Code(s): I42.9 - Cardiomyopathy, unspecified Meds Home Medications and Allergies Home Medications ?Medication ?Instructions ?Recorded ?Confirmed ?Type albuterol sulfate 90 mcg/actuation 2 inh inhalation QIDP PRN 10/31/24 11/12/24 History aerosol inhaler shortness of breath or wheezing diclofenac sodium 75 mg 75 mg PO BID 10/31/24 11/12/24 History tablet,delayed release potassium chloride 10 mEq 10 meq PO TID 10/31/24 11/12/24 History tablet,extended release(part/cryst) aspirin 81 mg tablet,delayed 81 mg PO DAILY 30 days #30 tabs 11/06/24 11/12/24 Rx release fluticasone fur. 100 mcg-umeclid 1 inh inhalation DAILY 30 days #60 11/06/24 11/12/24 Rx 62.5 mcg-vilant 25 mcg ea inhalat.powder (Trelegy Ellipta) levofloxacin 750 mg tablet 750 mg PO 1100 2 days #2 tabs 11/06/24 11/12/24 Rx apixaban 5 mg tablet (Eliquis) 5 mg PO BID 30 days #60 tabs 11/12/24 11/12/24 Rx atorvastatin 40 mg tablet 40 mg PO DAILY 30 days #90 tabs 11/12/24 11/12/24 Rx clopidogrel 75 mg tablet 75 mg PO DAILY 30 days #90 tabs 11/12/24 11/12/24 Rx digoxin 125 mcg (0.125 mg) tablet 125 mcg PO DAILY 30 days #90 tabs 11/12/24 11/12/24 Rx furosemide 20 mg tablet 20 mg PO BID #180 tabs 11/12/24 11/12/24 Rx metoprolol succinate 100 mg 100 mg PO BID 30 days #90 tabs 11/12/24 11/12/24 Rx tablet,extended release 24 hr sacubitril 49 mg-valsartan 51 mg 1 tab PO BID #180 tabs 11/12/24 11/12/24 Rx tablet (Entresto) New Prescriptions to Start Prescriptions: hilda Pina,Alfredo [id number] [Trelegy Ellipta] Silvana,Alfredo levofloxacin Alfredo Pina Allergies Allergy/AdvReac Type Severity Reaction Status Date / Time No Known Allergies Allergy Verified 11/12/24 15:22 Discharge Plan Disposition Patient Disposition: Home, Self-Care Condition: Fair Discharge Order Discharge Orders: Discharge Order (Routine); Ordered 11/06/24 Ordered By: Alfredo Pina Follow up Plan Follow up with: Randy Schwartz PA [Physician Jewelry Sales Representative] - 11/12/24 2:45 pm India Koo MD [Physician] - 11/20/24 1:00 pm () Prescriptions/Medication Reconciliation: New aspirin 81 mg Tablet,Delayed Release (Dr/Ec) 81 mg PO DAILY 30 Days Qty: 30 0RF levofloxacin 750 mg Tablet 750 mg PO 1100 2 Days Qty: 2 0RF Trelegy Ellipta 100-62.5-25 mcg Blister With Device 1 inh inhalation DAILY 30 Days Qty: 60 0RF Continued diclofenac sodium 75 mg tablet,delayed release (DR/EC) 75 mg PO BID potassium chloride 10 mEq tablet,ER particles/crystals 10 meq PO TID albuterol sulfate 90 mcg/actuation HFA aerosol inhaler 2 inh inhalation QIDP PRN (Reason: shortness of breath or wheezing) Discontinued atorvastatin 40 mg tablet 40 mg PO DAILY No Action Eliquis 5 mg tablet 5 mg PO BID 30 Days Qty: 60 0RF atorvastatin 40 mg tablet 40 mg PO DAILY 30 Days Qty: 90 3RF clopidogrel 75 mg tablet 75 mg PO DAILY 30 Days Qty: 90 3RF digoxin 125 mcg (0.125 mg) tablet 125 mcg PO DAILY 30 Days Qty: 90 3RF metoprolol succinate 100 mg tablet extended release 24 hr 100 mg PO BID 30 Days Qty: 90 3RF furosemide 20 mg tablet 20 mg PO BID Qty: 180 3RF sacubitril-valsartan [Entresto] 49-51 mg tablet 1 tab PO BID Qty: 180 3RF Problem Reconciliation Problems Reviewed?: Yes Patient Discharge Instructions Patient Instructions: Heart-Healthy Diet, DI for Pneumonia -- Adult, DI for Atrial Fibrillation, DI for Respiratory Failure, Catheter-Associated Urinary Tract Infection Print Language: [place]ian Providers Primary Care Provider: Deepti Curiel Provider: Yg Licea Attending Provider: Yg Licea
--- NOTE | 2024-11-06 13:44 | HMH.PHAINT1 ---
Pharmacy Intervention Comments: 11/06/24--PATIENT IS GOING TO DISCUSS WITH MD ABOUT ELIQUIS DUE TO COST. CALLING OFFICE IN THE AM. ALSO MENTIONED TO PATIENT AND FAMILY ABOUT CONCURRENT USE OF DICLOFENAC WITH ASPIRIN AND PLAVIX. THEY WILL DISCUSS THIS WELL.
--- NOTE | 2024-11-06 14:44 | CARE MANAGER ---
Dr. Licea states that patient doesn't need to take Diclofenac due to taking the Eliquis, Plavix, and ASA. I contacted the patient and he verbalized understanding. BAKARI Gan
--- NOTE | 2024-11-07 10:21 | SW/DCPLANNER ---
Spoke with patient on the phone. Patient stated that he is doing well just sleeping more than usual. Rufino stated that his daughter has his appointments written down. Patient stated that he was able to get some of his medicine picked up and that his daughter is calling to see what the insurance is going to pay on his medicine. Patient stated that he has no concerns or questions at this time. Jono Dawson
== END 2024-11-06 13:46 | disposition home or self-care (01) | DRG 853 ==
LOC: ER 13:30 → ICU 18:56 → 2ND 11-04 14:37
PROVIDERS: Internal Medicine; Internal Medicine Pulmonary Disease; Nurse Practitioner Family; Physician Assistant; Student in an Organized Health Care Education/Training Program; Admitting Provider Internal Medicine Adolescent Medicine; Emergency Provider Emergency Medicine; PCP Family Medicine; Visit Provider Internal Medicine Adolescent Medicine
PROC: 027034Z Dilation of Coronary Artery, One Artery with Drug-eluting Intraluminal Device, Percutaneous Approach (ICD-10-PCS; principal; 2024-11-05 14:30)
DX: A41.9 Sepsis, unspecified organism (principal); I21.A1 Myocardial infarction type 2; I50.21 Acute systolic (congestive) heart failure; J18.9 Pneumonia, unspecified organism; J96.21 Acute and chronic respiratory failure with hypoxia; J96.22 Acute and chronic respiratory failure with hypercapnia; J44.1 Chronic obstructive pulmonary disease with (acute) exacerbation; N17.9 Acute kidney failure, unspecified; I48.20 Chronic atrial fibrillation, unspecified; I42.9 Cardiomyopathy, unspecified; R65.20 Severe sepsis without septic shock; I11.0 Hypertensive heart disease with heart failure; E78.5 Hyperlipidemia, unspecified; G47.33 Obstructive sleep apnea (adult) (pediatric); R45.1 Restlessness and agitation; Z99.81 Dependence on supplemental oxygen; Z87.891 Personal history of nicotine dependence; Z79.899 Other long term (current) drug therapy; Z79.52 Long term (current) use of systemic steroids; Z79.01 Long term (current) use of anticoagulants; Z79.02 Long term (current) use of antithrombotics/antiplatelets; Z79.82 Long term (current) use of aspirin; E66.9 Obesity, unspecified; Z68.32 Body mass index [BMI] 32.0-32.9, adult; R41.0 Disorientation, unspecified
CPT/HCPCS: 36415; 71045; 71275; 80053; 80061; 80202; 82803; 82962; 83605; 83735; 83880; 84100; 84145; 84484; 85007; 85025; 85347; 86140; 86803; 87040; 87070; 87077; 87081; 87186; 87205; 87389; 87633; 87636; 92610; 92928; 93005; 93306; 93458; 94640; 94660; 94761; 99152; 99291; C1725; C1760; C1769; C1874; C9600; J0282; J0456; J0696; J1100; J1160; J1200; J1644; J1650; J1939; J2060; J2250; J2543; J2919; J3010; J3370; J3372; J3475; J7030; J7050; J7060; J7613; J7614; J7620; J7644; Q9957; Q9967

== ENCOUNTER 2024-11-12 13:19 | Outpatient (CLI) | payer MEDICARE, SELFPAY ==
[2024-11-12 13:55] LABS: Basophils % 0.2 % (0.1-2.0); Eosinophils # 0.3 K/mm3 (0.0-0.4); Eosinophils % 2.7 % (0.1-12.0); Hematocrit 38.2 % (42.0-52.0); Hemoglobin 12.5 g/dL (14.1-18.0); Lymphocytes # 1.6 K/mm3 (0.7-4.5); Lymphocytes % 17.2 % (10-50); Mean Corpuscular HGB Conc 32.7 g/dL (31.8-35.4); Mean Corpuscular Hemoglobin 30.9 pg (27.0-31.2); Mean Corpuscular Volume 94.6 fl (80-94); Mean Platelet Volume 10.4 fl (7.4-10.4); Monocytes # 1.2 K/mm3 (0.1-1.0); Monocytes % 12.9 % (1.7-9.3); Neutrophils # 6.2 K/mm3 (1.8-7.8); Neutrophils % 66.6 % (37.0-80.0); Platelet Count 468 K/mm3 (142-424); Red Blood Count 4.04 M/mm3 (4.60-6.20); Red Cell Distribution Width 12.8 % (11.5-17.5); White Blood Count 9.4 K/mm3 (4.8-10.8)
[2024-11-12 14:47] LABS: Chloride 103 mmol/L (98-107)
[2024-11-12 14:48] LABS: Albumin Level 3.6 g/dl (3.5-5.0); Potassium 4.6 mmoL/L (3.5-5.1); Sodium 138 mmol/L (136-145)
[2024-11-12 14:50] LABS: Alanine Aminotransferase 38 U/L (12-78); Albumin/Globulin Ratio 1.4 (1.1-1.8); Alkaline Phosphatase 93 U/L (38-126); Anion Gap 7.6 mEq/L (5-15); Aspartate Amino Transferase 34 U/L (17-59); Bilirubin,Total 0.2 mg/dl (0.2-1.3); Blood Urea Nitrogen 27 mg/dl (9-20); Carbon Dioxide 32 mmol/L (22.0-30.0); Estimated Glomerular Filt Rate 60 ml/min (>60); GFR (African American) 73 ML/MIN (>60); Globulin 2.5 g/dL (1.3-3.2); Total Protein,Serum 6.1 g/dl (6.3-8.2)
[2024-11-12 14:51] LABS: Calcium 8.9 mg/dl (8.4-10.2); Glucose 93 mg/dl (74-100)
== END 2024-11-12 23:59 | disposition home or self-care (01) ==
LOC: LAB 13:20
PROVIDERS: PCP Nurse Practitioner; Visit Provider Internal Medicine
DX: I11.0 Hypertensive heart disease with heart failure (principal)
CPT/HCPCS: 36415; 80053; 85025

== ENCOUNTER 2025-02-03 10:27 | Outpatient (CLI) | payer MEDICARE, SELFPAY ==
--- OUTSIDE RECORDS SUMMARY | 2025-02-03 10:30 | XMS_ITS ---
Author Organization Unknown Problems Date Problem Result OnSetDate Icd10 SnomedCode Severity 02/11/2024 00:00:00 Neuropathy G62.9 06/02/2024 00:00:00 ACC/AHA stage B congestive heart failure I50.9 06/02/2024 00:00:00 Chronic neuromuscular respiratory failure J96.10
--- NOTE | 2025-02-03 11:00 | CA_ITS ---
APPROVED REPORT EXAM: Limited 2D Echocardiogram Manager Brand: Gwendolyn Trujillo, RCS, RVS Ht: 5 ft 10 in Wt: 232lbs BSA: 2.22 BP: 104/61 mmHg Indications: EF check, CAD, OK, CAD, CHF, HTN, HLD, Ex-smoker, SOA-O2 dependent 2D Dimensions IVSd 1.08 cm LVEF (Visual) 59.20 % PWd 0.93 cm LVDd 5.07 cm LVDs 3.47 cm M-Mode Dimensions RVDd 2.61 cm (0.9-2.6) LA Diam 3.75 cm (1.9-4.0) LVDd 5.94 cm (3.5-5.7) IVSd 1.00 cm (0.6-1.1) PWd 0.60 cm (0.6-1.1) EPSs 1.37 cm EDV (Teich) 175.90 mL Other Information Study Quality: Fair Conclusion This is a limited TTE to evaluate for LV systolic function. Limited windows are obtained. The left ventricle is normal in size. There is increased LV wall thickness. There is low-normal global LV systolic function. The septum is asynchronous. Regional wall motion abnormalities are present, including moderate hypokinesis of the septal, inferoseptal, and anteroseptal LV díaz. LVEF is 50%. Electronically signed by : Shae Hood MD 02/03/2025 11:29:19
== END 2025-02-03 23:59 | disposition home or self-care (01) ==
LOC: RT 10:28
PROVIDERS: PCP Nurse Practitioner; Visit Provider Nurse Practitioner
DX: I11.0 Hypertensive heart disease with heart failure (principal); I50.9 Heart failure, unspecified; I42.9 Cardiomyopathy, unspecified; I21.9 Acute myocardial infarction, unspecified; E78.5 Hyperlipidemia, unspecified; R93.1 Abnormal findings on diagnostic imaging of heart and coronary circulation; Z87.891 Personal history of nicotine dependence; Z99.81 Dependence on supplemental oxygen
CPT/HCPCS: 93308

== ENCOUNTER 2025-02-20 14:16 | Outpatient (CLI) | payer MEDICARE, SELFPAY ==
--- NOTE | 2025-02-20 14:30 | CT_ITS ---
FINAL REPORT TECHNIQUE: Axial images were obtained through the chest without contrast. Reconstructed images were obtained and reviewed. This study was performed with techniques to keep radiation doses as low as reasonably achievable, (ALARA). Individualized dose reduction techniques using automated exposure control or adjustment of mA and/or kV according to the patient's size were employed. CLINICAL HISTORY: Lung nodule lymphadenopathy COMPARISON: 10/31/2024 FINDINGS: The previously identified extensive mediastinal lymph nodes have resolved. Coronary artery stent is identified. The heart size is normal. There is no pericardial or pleural effusion. There is minimal patchy airspace opacity at the right base consistent with acute pneumonia. The previously identified extensive airspace opacity in the right middle and right lower lobes has resolved. Limited images of the upper abdomen reveal a gallstone and a contracted gallbladder. IMPRESSION: Interval resolution of extensive mediastinal lymph nodes. Interval resolution of the airspace opacity in the right middle and right lower lobes. Minimum acute pneumonia at the right base. Gallstone in a contracted gallbladder. Reviewed, Interpreted and Dictated by Main Rincon MD Transcribed by Latasha Helms Authenticated and [facility]
[2025-02-20 15:01] LABS: ABG Base Excess 4.9 mmol/L (-2.4-2.3); ABG HCO3 29.6 mmhg (22.0-26.0); ABG Oxygen Saturation 90 % (90-100); ABG PCO2 47.7 mmhg (35.0-45.0); ABG PH 7.41 mmol/L (7.35-7.45); ABG PO2 58.2 mmhg (80-100)
[2025-02-20 15:02] LABS: Allen's Test Acceptable; Oxygen ra %; Source Left Radial
[2025-02-20] MEDS: ALBUTEROL 0.083% 2.5 MG/3 ML NEB IH (15:36)
== END 2025-02-20 23:59 | disposition home or self-care (01) ==
LOC: RAD 14:16
PROVIDERS: PCP Nurse Practitioner; Visit Provider Internal Medicine Pulmonary Disease
DX: J18.9 Pneumonia, unspecified organism (principal); K80.20 Calculus of gallbladder without cholecystitis without obstruction; J44.9 Chronic obstructive pulmonary disease, unspecified; R91.8 Other nonspecific abnormal finding of lung field
CPT/HCPCS: 71250; 82803; 94060; 94618; 94726; 94729

== ENCOUNTER 2025-05-19 13:33 | Outpatient (CLI) | payer MEDICARE, SELFPAY ==
[2025-05-19 14:23] LABS: Hematocrit 36.0 % (42.0-52.0); Hemoglobin 11.8 g/dL (14.1-18.0); Immature Granulocytes % 0.4 %; Mean Corpuscular HGB Conc 32.8 g/dL (31.8-35.4); Mean Corpuscular Hemoglobin 29.9 pg (27.0-31.2); Mean Corpuscular Volume 91.4 fl (80-94); Nucleated Red Blood Cells % 0 %; Platelet Count 239 K/mm3 (142-424); Red Blood Count 3.94 M/mm3 (4.60-6.20); Red Cell Distribution Width-SD 45.2 fL; White Blood Count 7.5 K/mm3 (4.8-10.8)
[2025-05-19 15:05] LABS: Alanine Aminotransferase 34 U/L (12-78); Albumin Level 3.9 g/dl (3.5-5.0); Alkaline Phosphatase 91 U/L (38-126); Anion Gap 11.8 mEq/L (5-15); Aspartate Amino Transferase 32 U/L (17-59); Bilirubin,Direct 0.1 mg/dl (0.0-0.4); Bilirubin,Indirect 0.2 mg/dL (0.0-0.9); Bilirubin,Total 0.3 mg/dl (0.2-1.3); Bilirubin,Unconjugated 0.2 mg/dL (0.0-1.1); Blood Urea Nitrogen 45 mg/dl (9-20); Calcium 8.9 mg/dl (8.4-10.2); Carbon Dioxide 29 mmol/L (22.0-30.0); Chloride 108 mmol/L (98-107); Cholesterol 131 mg/dl (140-200); Creatinine,Serum 1.70 mg/dl (0.66-1.25); Estimated Glomerular Filt Rate 40 ml/min (>60); GFR (African American) 49 ML/MIN (>60); Glucose 184 mg/dl (74-100); HDL Cholesterol 28 mg/dl (40-60); Magnesium 1.8 mg/dl (1.6-2.3); Potassium 4.8 mmoL/L (3.5-5.1); Sodium 144 mmol/L (136-145); Total Protein,Serum 6.4 g/dl (6.3-8.2); Triglycerides 244 mg/dl (30-150)
[2025-05-19 15:09] LABS: Digoxin 0.60 ng/ml (0.2-2.00)
[2025-05-19 15:20] LABS: Free T4 (Free Thyroxine) 0.88 ng/dl (0.78-2.19)
[2025-05-19 15:35] LABS: Thyroid Stimulating Hormone 1.59 uIU/mL (0.465-4.68)
== END 2025-05-19 23:59 | disposition home or self-care (01) ==
PROVIDERS: PCP Family Medicine; Visit Provider Nurse Practitioner
DX: I25.10 Atherosclerotic heart disease of native coronary artery without angina pectoris (principal); I42.9 Cardiomyopathy, unspecified; I10 Essential (primary) hypertension; I48.91 Unspecified atrial fibrillation; E78.5 Hyperlipidemia, unspecified
CPT/HCPCS: 36415; 80048; 80061; 80076; 80162; 83735; 84439; 84443; 85025

== ENCOUNTER 2025-05-25 08:37 | Outpatient (CLI) | payer MEDICARE, SELFPAY ==
[2025-05-25 09:10] LABS: PHA INR Fingerstick 1.5 (0.9-1.1)
== END 2025-05-25 09:12 ==
LOC: ACC 08:38
PROVIDERS: PCP Family Medicine; Visit Provider Physician Assistant
DX: I48.91 Unspecified atrial fibrillation (principal); Z79.01 Long term (current) use of anticoagulants
CPT/HCPCS: 85610; G0463

== ENCOUNTER 2025-05-29 08:41 | Outpatient (CLI) | payer MEDICARE, SELFPAY ==
[2025-05-29 13:13] LABS: PHA INR Fingerstick 2.5 (0.9-1.1)
== END 2025-05-29 13:19 ==
PROVIDERS: PCP Nurse Practitioner; Visit Provider Nurse Practitioner
DX: I48.91 Unspecified atrial fibrillation (principal); Z79.01 Long term (current) use of anticoagulants
CPT/HCPCS: 85610; 99211; G0463

== ENCOUNTER 2025-06-04 08:27 | Outpatient (CLI) | payer MEDICARE, SELFPAY ==
[2025-06-04 10:25] LABS: PHA INR Fingerstick 2.0 (0.9-1.1)
== END 2025-06-04 10:33 ==
LOC: ACC 08:28
PROVIDERS: PCP Nurse Practitioner; Visit Provider Physician Assistant
DX: I48.91 Unspecified atrial fibrillation (principal); Z79.01 Long term (current) use of anticoagulants
CPT/HCPCS: 85610; 99211; G0463

== ENCOUNTER 2025-06-18 08:30 | Outpatient (CLI) | payer MEDICARE, SELFPAY ==
[2025-06-18 12:24] LABS: PHA INR Fingerstick 2.8 (0.9-1.1)
== END 2025-06-18 12:26 ==
LOC: ACC 08:31
PROVIDERS: PCP Nurse Practitioner; Visit Provider Physician Assistant
DX: I48.91 Unspecified atrial fibrillation (principal); Z79.01 Long term (current) use of anticoagulants
CPT/HCPCS: 85610; 99211; G0463

== ENCOUNTER 2025-07-16 08:36 | Outpatient (CLI) | payer MEDICARE, SELFPAY ==
[2025-07-16 09:38] LABS: PHA INR Fingerstick 2.4 (0.9-1.1)
== END 2025-07-16 09:40 ==
LOC: ACC 08:37
PROVIDERS: PCP Nurse Practitioner; Visit Provider Physician Assistant
DX: I48.91 Unspecified atrial fibrillation (principal); Z79.01 Long term (current) use of anticoagulants
CPT/HCPCS: 85610; 99211; G0463

== ENCOUNTER 2025-08-17 10:01 | Observation (INO) | payer MEDICARE, SELFPAY ==
[2025-08-17] VITALS (10 sets, daily range): BP systolic 115–141; BP diastolic 66–84; PULSE 70–90; RESP 18–27; TEMP 36.5–37.2; O2SAT 93–97; BMI 34.7
--- NOTE | 2025-08-17 10:02 | ED_ITS ---
Discharge Plan Disposition Patient Disposition: Home, Self-Care Prescriptions Prescriptions: No Action atorvastatin 40 mg tablet 40 mg PO DAILY 30 Days Qty: 90 3RF clopidogrel 75 mg tablet 75 mg PO DAILY 30 Days Qty: 90 3RF digoxin 125 mcg (0.125 mg) tablet 125 mcg PO DAILY 30 Days Qty: 90 3RF gabapentin 300 mg capsule 300 mg PO albuterol sulfate 2.5 mg /3 mL (0.083 %) solution for nebulization 2.5 mg continuous nebulization ONCE lisinopril 20 mg tablet 20 mg PO DAILY Qty: 90 3RF ipratropium-albuterol 0.5 mg-3 mg(2.5 mg base)/3 mL solution for nebulization 3 ml inhalation Q8H PRN (Reason: shortness of breath or wheezing) 90 Days Qty: 270 1RF albuterol sulfate [Ventolin HFA] 90 mcg/actuation HFA aerosol inhaler 2 puff inhalation Q6H PRN (Reason: shortness of breath or wheezing) Qty: 8.5 3RF budesonide 0.5 mg/2 mL suspension for nebulization 0.5 mg inhalation BID Qty: 270 3RF metoprolol succinate 100 mg tablet extended release 24 hr See Rx Instructions .ROUTE .COMPLEX Qty: 90 2RF Dose Instruction: TAKE 1 TABLET BY MOUTH TWICE DAILY Rx Instructions: TAKE 1 TABLET BY MOUTH TWICE DAILY furosemide 20 mg tablet See Rx Instructions .ROUTE .COMPLEX Qty: 60 2RF Dose Instruction: TAKE 1 TABLET BY MOUTH TWICE A DAY Rx Instructions: TAKE 1 TABLET BY MOUTH TWICE A DAY warfarin 5 mg tablet 5 mg PO DAILY Qty: 30 2RF diclofenac sodium 75 mg tablet,delayed release (DR/EC) 75 mg PO BID potassium chloride 10 mEq tablet,ER particles/crystals 10 meq PO TID albuterol sulfate 90 mcg/actuation HFA aerosol inhaler 2 inh inhalation QIDP PRN (Reason: shortness of breath or wheezing) Referrals Follow up/Referrals: Sho Lilly APRN [Primary Care Provider, Medical] - See instructions Clinical Impressions Clinical Impression: CAP (community acquired pneumonia), Dyspnea, CHF exacerbation Print Language Print Language: Swedish Discharge ED Provider: Rod Gray Adult HPI General Chief complaint: Chest Pain Stated complaint: chest pain Time Seen by Provider: 08/17/25 10:02 History of Present Illness HPI narrative: Patient is a history of A-fib on Coumadin, digoxin and metoprolol, coronary artery disease s/p PCI, CHF, last echo demonstrating LVEF of 50% in January 2025, COPD as well as productive cough and subjective chills over the last couple of weeks. He reports that he is developed chest pain as well over the last week. He reports that it is worse on exertion, mostly resolving with rest. He reports increased lower extremity edema. He reports he cannot sleep lying flat with significant orthopnea. He presents today due to shortness of breath for the last month on 3 L nasal cannula oxygen at home. He was seen by his PCP instructed him to present to the emergency department. He has not been on steroids or antibiotics recently. He reports that he was also taken off of his diuretics about 2 months ago. Denies any other symptoms constitutionally like vomiting or diarrhea abdominal pain dysuria or hematuria. Reports good oral intake. Related Data Home Medications ?Medication ?Instructions ?Recorded ?Confirmed albuterol sulfate 90 mcg/actuation 2 inh inhalation QI DP PRN 10/31/24 06/17/25 aerosol inhaler shortness of breath or wheez ing diclofenac sodium 75 mg 75 mg PO BID 10/31/24 tablet,delayed release potassium chloride 10 mEq 10 meq PO TID 10/31/2406/17 tablet,extended release(part/cryst) albuterol sulfate 2.5 mg/3 mL 2.5 mg continuous nebuli zation ONCE 12/10/24 06/17/25 (0.083 %) solution for nebulization gabapentin 300 mg capsule 300 mg PO 02/27/25 06/17/25 Previous Rx's ?Medication ?Instructions ?Recorded atorvastatin 40 mg tablet 40 mg PO DAILY 30 days #90 t abs 11/12/24 clopidogrel 75 mg tablet 75 mg PO DAILY 30 days #90 t abs 11/12/24 digoxin 125 mcg (0.125 mg) tablet 125 mcg PO DAILY 30 days #90 tabs 11/12/24 furosemide 20 mg tablet See Rx Instructions .Route 0 05/19/25 .COMPLEX #60 tabs lisinopril 20 mg tablet 20 mg PO DAILY #90 tabs 06/04 metoprolol succinate 100 mg See Rx Instructions .Route 05/19/25 tablet,extended release 24 hr .COMPLEX #90 tabs warfarin 5 mg tablet 5 mg PO DAILY #30 tabs 06/16 albuterol sulfate 90 mcg/actuation 2 puff inhalation Q 6H PRN 06/17/25 aerosol inhaler (Ventolin HFA) shortness of breath or wheezing #8.5 grams budesonide 0.5 mg/2 mL suspension 0.5 mg (2 mL) inhala tion BID #270 06/17/25 for nebulization mL ipratropium 0.5 mg-albuterol 3 mg 3 ml inhalation Q8H PRN shortness 06/17/25 (2.5 mg base)/3 mL nebulization of breath or wheezing 90 days #270 soln mL Allergies Allergy/AdvReac Type Severity Reaction Status Date / Time No Known Allergies Allergy Verified 06/17/25 13:18 [facility] [place] Disclaimer: The information contained in this section may have been updated after the patient was seen, as this information can be updated by other users. Medical History Severe sepsis Right lower lobe pneumonia Elevated troponin Acute hypoxemic respiratory failure Acute exacerbation of chronic obstructive pulmonary disease Hypoxemia Wheezing Abnormal brain MRI Movement artifact present, questionable subdural hyperintensity, noncontributory head CT with and without contrast Shortness of breath Elevated blood pressure reading Tremor Intermittent fluctuating primarily intentional tremor with positive family history without parkinsonian syndrome/symptoms worse in the setting of hypoxemia, much improved with treatment of underlying COPD, hypoxemia to the point barely noticeable today. Clinical impression: Familial tremor. CPAP (continuous positive airway pressure) dependence Sleep apnea Chronic hypoxemic respiratory failure Dyspnea on exertion Pneumonia Abnormal screening CT of chest Screening for lung cancer Encounter for screening for malignant neoplasm of lung in current smoker with 30 pack year history or greater Dyspnea on exertion COPD mixed type History of smoking 30 or more pack years COPD (chronic obstructive pulmonary disease) Surgical History H/O cardiac catheterization History of appendectomy Previous back surgery Family History Other No significant family history Social History Smoking Status: Former smoker alcohol intake: former substance use type: denies use current occupational status: disabled Travel in the last 8 weeks?: None housing: apartment marital status: legally Have you lived/traveled outside US in past 30 days?: No Contact w/someone who lives/traveled outside US past 30 days?: No Exposure to someone with infectious disease in past 14 days?: No Do you have a fever (greater than 100.4 F or 38 C)?: No Have you tested positive for COVID-19?: No Exposed to someone with COVID-19 in past 14 days?: No Do you have a sore throat?: No Do you have a cough?: No Do you have any weakness?: No Do you have any diarrhea?: No Are you experiencing any unusual bleeding?: No Do you have any muscle aches/pain?: No Do you have any abdominal pain?: No Are you experiencing loss of taste or smell?: No Other Medical History Have you received the Flu Vaccine for this season: No Have you received the Pneumonia Vaccine: Yes ROS Obtained: Yes All systems reviewed & no additional complaints except as documented Physical Exam General General appearance: alert, in distress and obese Head Head exam: atraumatic and normocephalic Eye Eye exam: Present PERRL and EOMI ENT ENT exam: Present normal oropharynx Neck Neck exam: Present full ROM and trachea midline Chest Chest inspection: Present symmetric chest wall rise Respiratory Respiratory exam: Present respiratory distress, wheezes, accessory muscle use and prolonged expiratory phase; Absent stridor Cardiovascular Cardiovascular exam: Present regular rate and normal rhythm Abdominal Exam Abdominal exam: Present soft; Absent distention or tenderness Extremities Exam Extremities exam: Present full ROM Neurological Exam Neurological exam: Present alert and oriented X3 Psychiatric Psychiatric exam: Present normal mood Skin Skin exam: Present warm and dry Medical Decision Making Medical Records Screening: Per USPSTF and CDC recommendations, given the prevalence of disease in our region, it is our hospital?s policy to screen for HIV and viral Hepatitis for all patients aged 18 and over and those with ongoing risk factors. Dmitri Inquiry Pt receiving controlled substance: No Vital Signs: 08/17/25 10:02 08/17/25 10:10 08/17/25 10:13 Temperature 98.1 F Temperature Source Oral Pulse Rate 70 80 Pulse Rate [Left Radial] 73 Respiratory Rate 20 23 Blood Pressure 133/74 Blood Pressure [Right Arm] 135/70 Blood Pressure Mean [Right Arm] 91 Blood Pressure Source Automatic Cuff Blood Pressure Position Sitting 02 Sat by Pulse Oximetry 96 97 Oxygen Delivery Method Nasal Cannula Nasal Cannula Oxygen Flow Rate (LPM) 3 3 Lab Data Lab Results 08/17/25 10:05: WBC 8.8, RBC 4.24 L, Hgb 12.9 L, Hct 39.8 L, MCV 93.9, MCH 30.4, MCHC 32.4, RDW 12.0, Plt Count 209, MPV 10.1, Neut % (Auto) 74.7, Lymph % (Auto) 12.6, [place] % (Auto) 8.8, Eos % (Auto) 3.1, Baso % (Auto) 0.2, Neut # (Auto) 6.6, Lymph # (Auto) 1.1, [place] # (Auto) 0.8, Eos # (Auto) 0.3, Baso # (Auto) 0.0, PT 16.7 H, INR 1.55 H, Sodium 147 H, Potassium 4.1, Chloride 102, Carbon Dioxide 33 H, Anion Gap 16.1 H, BUN 31 H, Creatinine 1.40 H, Estimated Creat Clear 77, E stimated GFR 50 L, Est GFR ( Amer) 61, Glucose 123 H, Lactate 1.3, Calcium 8.5, Magnesium 2.3, Total Bilirubin 0.6, AST 35, ALT 29, Alkaline Phosphatase 91, Troponin I 0.02, NT-Pro-B Natriuret Pep 1080 H, Total Protein 7.3, Albumin 4.1, Globulin 3.2, Albumin/Globulin Ratio 1.3, Procalcitonin 0.373 08/17/25 10:10: VBG pH 7.40, VBG pCO2 45.1, VBG pO2 88.9 H, VBG HCO3 27.2, VBG Total CO2 28.6 H, VBG O2 Saturation 96.8 H, VBG Base Excess 2.4 H, VBG Lactic Acid 1.7 08/17/25 10:34: SARS-CoV-2 (PCR) Not detected, Influenza A Untype (PCR) Not detected, Influenza Type B (PCR) Not detected 08/17/25 10:05 08/17/25 10:05 Orders (Tests/Meds): ED MEDICATIONS Generic Name Dose Route Start Last Admin Trade Name Freq PRN Reason Stop Dose Admin Ceftriaxone Sodium 2 gm/ 100 mls @ 200 mls/hr 08/17/25 10:45 Sodium Chloride IV 08/27/25 10:44 Q24H JAZZMINE Discontinued Medications Generic Name Dose Route Start Last Admin Trade Name Justinq PRN Reason Stop Dose Admin Albuterol/Ipratropium 9 ml 08/17/25 10:38 08/17/25 12:02 Ipratropium/Albuterol 3 Ml Neb IH 08/17/25 10:39 9 ml ONCE ONE Administration Furosemide 40 mg 08/17/25 10:57 08/17/25 11:34 Furosemide 40mg/4ml Vial IV 08/17/25 10:58 40 mg ONCE ONE Administration Azithromycin 500 mg/ Sodium 250 mls @ 250 mls/hr 08/17/25 10:37 08/17/25 11:34 Chloride IV 08/17/25 10:38 250 mls/hr ONCE ONE Administration Magnesium Sulfate 2 gm in 50 mls @ 50 mls/hr 08/17/25 10:37 08/17/25 12:06 Magnesium Sulfate 2gm/50ml Premix IV 08/17/25 11:36 50 mls/hr ONCE ONE Administration Methylprednisolone Sodium Succinate 125 mg 08/17/25 10:38 08/17/25 11:34 Methylprednisolone Sod Succ 125mg Vial IV 08/17/25 10:39 125 mg ONCE ONE Administration Potassium Chloride 40 meq 08/17/25 10:57 08/17/25 11:34 Potassium Chloride 20meq Tab PO 08/17/25 10:58 40 meq ONCE ONE Administration ORDERS Category Date Time Status CXR --portable [XR chest portable] Stat Exams 08/17/25 10:10 Completed Complete Blood Count Auto Diff Stat Lab 08/17/25 10:05 Completed Comprehensive Metabolic Panel Stat Lab 08/17/25 10:05 Completed Lactic Acid Stat Lab 08/17/25 10:05 Completed MAG [Magnesium] Stat Lab 08/17/25 10:05 Completed NT Pro Brain Natriuretic Pep. Stat Lab 08/17/25 10:05 Completed PT INR [Prothrombin Time INR] Stat Lab 08/17/25 10:05 Completed Procalcitonin Stat Lab 08/17/25 10:05 Completed Rapid PCR Covid and Flu A/B Stat Lab 08/17/25 10:34 Completed Troponin I Q3H Lab 08/17/25 13:15 Ordered Troponin I Q3H Lab 08/17/25 16:15 Ordered Troponin I Stat Lab 08/17/25 10:05 Completed Blood Culture Stat Micro 08/17/25 11:00 Received Venous Blood Gas Stat RT 08/17/25 10:10 Completed ECG Data Tracing #1: I reviewed this ECG and interpreted as documented below: Normal sinus rhythm with left bundle branch block without obvious acute ischemic ST change when applying [place] criteria. Medical Decision Narrative: Patient is a 70-year-old male that is very comorbid. He has a history of coronary disease s/p PCI, A-fib on Coumadin, COPD on 3 L nasal cannula at home. He presents today due to concerns for shortness of breath and chest pain. He reports that it has been going on for some time. The shortness of breath and leg swelling is been going on for at least a month, but the productive cough only over the last 2 weeks and the chest pain over the last week. He reports that the pain is primarily exertional, resolving with rest. But he continues to feel dyspneic. On arrival, he is afebrile, hemodynamically stable, He is in somewhat distress, given his tachypnea and retractions and increased work of breathing. He is diminished with prolonged expiratory phase and wheezing in all lung nugent. Will treat as COPD exacerbation with respiratory therapy evaluation, DuoNebs steroids mag given the productive nature of his cough, will empirically treat for community-acquired pneumonia with Rocephin and azithromycin. Chest x-ray independently interpreted by myself demonstrating some haziness and probably focal consolidation of the right lower lobe consistent with pneumonic process and radiology agrees. Pneumonia severity index 129 indicating class IV indicating high risk and recommending hospitalization. On reassessment, patient remains significantly dyspneic even at rest. He is on his home 3 L nasal cannula reassuringly, but given his evidence of pneumonia and volume overload, will need to come in for IV antibiotics, IV diuresis. [place] reasonable to consult hospitalist for admission. I had an interactive discussion with Dr. Pina who agrees to accept the patient to her service for further workup or definitive management. Critical Care Critical Care Time Critical Care Time: Yes Attestation: On 08/17/25, the high probability of a clinically significant, sudden or life threatening deterioration of the following system(s) required my full and direct attention, intervention and personal management. The time I documented below is in addition to time spent performing reported procedures but includes the following listed in this critical care notation. Total Time Total Critical Care Time: 31
--- NOTE | 2025-08-17 10:08 | ECG_ITS ---
APPROVED REPORT Exam: Resting ECG HR:70 bpm ECG Measurements Heart Rate 70 AXES CA 196 P 77 QRSd 170 QRS 50 QT 433 T 113 QTc 454 Conclusion SINUS RHYTHM LEFT BUNDLE BRANCH BLOCK [120+ ms QRS DURATION, 80+ ms Q/S IN V1/V2, 85+ ms R IN I/aVL/V5/V6] ABNORMAL ECG UNCONFIRMED REPORT Electronically signed by : Rod Gray, 08/17/2025 16:36:16
--- NOTE | 2025-08-17 10:10 | XR_ITS ---
PROCEDURE INFORMATION: Exam: XR Chest Exam date and time: 08/17/2025 10:14 AM Age: 70 years old Clinical indication: Dyspnea; Additional info: SOA TECHNIQUE: Imaging protocol: Radiologic exam of the chest. Views: 1 view. COMPARISON: CT CHEST WO CON 02/20/2025 2:17 PM FINDINGS: Lungs: Patchy interstitial and alveolar airspace disease in the right perihilar region and most pronounced within the right lower lobe. Favor pneumonic process. Pleural spaces: Unremarkable. No pleural effusion. No pneumothorax. Heart/Mediastinum: Unremarkable. No cardiomegaly. Bones/joints: Unremarkable. IMPRESSION: Patchy interstitial and alveolar airspace disease in the right perihilar region and most pronounced within the right lower lobe. Favor pneumonic process.
[2025-08-17 10:18] LABS: Lactate Venous 1.7 mmol/L (0.4-2.0); VBG HCO3 27.2 mmol/L (23-30); VBG PCO2 45.1 mmol/L (35-51); VBG PH 7.40 mmol/L (7.31-7.41); VBG PO2 88.9 mmol/L (28-40)
[2025-08-17 10:22] LABS: Albumin Level 4.1 g/dl (3.5-5.0); Chloride 102 mmol/L (98-107); Potassium 4.1 mmoL/L (3.5-5.1); Sodium 147 mmol/L (136-145)
[2025-08-17 10:23] LABS: Hematocrit 39.8 % (42.0-52.0); Hemoglobin 12.9 g/dL (14.1-18.0); Immature Granulocytes % 0.6 %; Mean Corpuscular HGB Conc 32.4 g/dL (31.8-35.4); Mean Corpuscular Hemoglobin 30.4 pg (27.0-31.2); Mean Corpuscular Volume 93.9 fl (80-94); Nucleated Red Blood Cells % 0 %; Platelet Count 209 K/mm3 (142-424); Red Blood Count 4.24 M/mm3 (4.60-6.20); Red Cell Distribution Width-SD 40.7 fL; White Blood Count 8.8 K/mm3 (4.8-10.8)
[2025-08-17 10:25] LABS: Alanine Aminotransferase 29 U/L (12-78); Albumin/Globulin Ratio 1.3 (1.1-1.8); Alkaline Phosphatase 91 U/L (38-126); Anion Gap 16.1 mEq/L (5-15); Aspartate Amino Transferase 35 U/L (17-59); Bilirubin,Total 0.6 mg/dl (0.2-1.3); Blood Urea Nitrogen 31 mg/dl (9-20); Carbon Dioxide 33 mmol/L (22.0-30.0); Creatinine Clearance Estimated 77 mL/min (50-200); Creatinine,Serum 1.40 mg/dl (0.66-1.25); Estimated Glomerular Filt Rate 50 ml/min (>60); GFR (African American) 61 ML/MIN (>60); Globulin 3.2 g/dL (1.3-3.2); Total Protein,Serum 7.3 g/dl (6.3-8.2)
[2025-08-17 10:26] LABS: Calcium 8.5 mg/dl (8.4-10.2); Glucose 123 mg/dl (74-100)
[2025-08-17 10:37] LABS: Coronavirus 19, PCR Not Detected (NotDetected); Influenza A, PCR Not Detected (NotDetected); Influenza B, PCR Not Detected (NotDetected)
[2025-08-17 10:46] LABS: Magnesium 2.3 mg/dl (1.6-2.3)
[2025-08-17 10:47] LABS: INR 1.55 (0.9-1.1); Prothrombin Time 16.7 seconds (10.1-12.5)
[2025-08-17 10:48] LABS: NT Pro Brain Natriuretic Pep. 1080 pg/mL (0-125); Troponin I 0.02 ng/ml (0.00-0.034)
[2025-08-17 11:04] LABS: Procalcitonin 0.373 ng/mL (0.0-2.0)
[2025-08-17] MEDS: AZITHROMYCIN 500 MG in 0.9 % SODIUM CHLORIDE 250 ML 250 MG IV (11:34)
[2025-08-17] MEDS: FUROSEMIDE 40MG/4ML VIAL 40 MG IV ×2 (11:34→16:47)
[2025-08-17] MEDS: POTASSIUM CHLORIDE 20MEQ TAB 40 MEQ PO (11:34)
[2025-08-17] MEDS: METHYLPREDNISOLONE SOD SUCC 125MG VIAL 125 MG IV (11:34)
[2025-08-17] MEDS: IPRATROPIUM/ALBUTEROL 3 ML NEB 9 ML IH (12:02)
[2025-08-17] MEDS: MAGNESIUM SULFATE IN WATER 2 GM/50 ML PIGGYBACK IV (12:06)
--- NOTE | 2025-08-17 12:20 | PC.NURSE ---
[facility] NOTIFIED OF ADMISSION
[2025-08-17 13:57] LABS: Troponin I 0.01 ng/ml (0.00-0.034)
--- NOTE | 2025-08-17 14:26 | EXP.HP ---
[facility] Disclaimer: The information contained in this section may have been updated after the patient was seen, as this information can be updated by other users. Medical History Severe sepsis Right lower lobe pneumonia Elevated troponin Acute hypoxemic respiratory failure Acute exacerbation of chronic obstructive pulmonary disease Hypoxemia Wheezing Abnormal brain MRI Movement artifact present, questionable subdural hyperintensity, noncontributory head CT with and without contrast Shortness of breath Elevated blood pressure reading Tremor Intermittent fluctuating primarily intentional tremor with positive family history without parkinsonian syndrome/symptoms worse in the setting of hypoxemia, much improved with treatment of underlying COPD, hypoxemia to the point barely noticeable today. Clinical impression: Familial tremor. CPAP (continuous positive airway pressure) dependence Sleep apnea Chronic hypoxemic respiratory failure Dyspnea on exertion Pneumonia Abnormal screening CT of chest Screening for lung cancer Encounter for screening for malignant neoplasm of lung in current smoker with 30 pack year history or greater Dyspnea on exertion COPD mixed type History of smoking 30 or more pack years COPD (chronic obstructive pulmonary disease) Surgical History H/O cardiac catheterization History of appendectomy Previous back surgery Family History Other No significant family history Social History Smoking Status: Former smoker alcohol intake: former substance use type: denies use current occupational status: disabled Travel in the last 8 weeks?: None housing: apartment marital status: legally Have you lived/traveled outside US in past 30 days?: No Contact w/someone who lives/traveled outside US past 30 days?: No Exposure to someone with infectious disease in past 14 days?: No Do you have a fever (greater than 100.4 F or 38 C)?: No Have you tested positive for COVID-19?: No Exposed to someone with COVID-19 in past 14 days?: No Do you have a sore throat?: No Do you have a cough?: No Do you have any weakness?: No Do you have any diarrhea?: No Are you experiencing any unusual bleeding?: No Do you have any muscle aches/pain?: No Do you have any abdominal pain?: No Are you experiencing loss of taste or smell?: No Other Medical History Have you received the Flu Vaccine for this season: No Have you received the Pneumonia Vaccine: Yes Meds Home Medications and Allergies Home Medications ?Medication ?Instructions ?Recorded ?Confirmed ?Type albuterol sulfate 90 mcg/actuation 2 inh inhalation QIDP PRN 10/31/24 06/17/25 History aerosol inhaler shortness of breath or wheezing diclofenac sodium 75 mg 75 mg PO BID 10/31/24 06/17/25 History tablet,delayed release potassium chloride 10 mEq 10 meq PO TID 10/31/24 06/17/25 History tablet,extended release(part/cryst) atorvastatin 40 mg tablet 40 mg PO DAILY 30 days #90 tabs 11/12/24 06/17/25 Rx clopidogrel 75 mg tablet 75 mg PO DAILY 30 days #90 tabs 11/12/24 06/17/25 Rx digoxin 125 mcg (0.125 mg) tablet 125 mcg PO DAILY 30 days #90 tabs 11/12/24 06/17/25 Rx albuterol sulfate 2.5 mg/3 mL 2.5 mg continuous nebulization ONCE 12/10/24 06/17/25 History (0.083 %) solution for nebulization gabapentin 300 mg capsule 300 mg PO 02/27/25 06/17/25 History furosemide 20 mg tablet See Rx Instructions .Route 05/19/25 06/17/25 Rx .COMPLEX #60 tabs lisinopril 20 mg tablet 20 mg PO DAILY #90 tabs 05/19/25 06/17/25 Rx metoprolol succinate 100 mg See Rx Instructions .Route 05/19/25 06/17/25 Rx tablet,extended release 24 hr .COMPLEX #90 tabs warfarin 5 mg tablet 5 mg PO DAILY #30 tabs 06/16/25 06/17/25 Rx albuterol sulfate 90 mcg/actuation 2 puff inhalation Q6H PRN 06/17/25 06/17/25 Rx aerosol inhaler (Ventolin HFA) shortness of breath or wheezing #8.5 grams budesonide 0.5 mg/2 mL suspension 0.5 mg (2 mL) inhalation BID #270 06/17/25 06/17/25 Rx for nebulization mL ipratropium 0.5 mg-albuterol 3 mg 3 ml inhalation Q8H PRN shortness 06/17/25 06/17/25 Rx (2.5 mg base)/3 mL nebulization of breath or wheezing 90 days #270 soln mL New Prescriptions to Start Prescriptions: Allergies Allergy/AdvReac Type Severity Reaction Status Date / Time No Known Allergies Allergy Verified 06/17/25 13:18 Exam Data for Last 24 hours Vital signs and Labs for Last 24 Hours: Temp Pulse Resp BP Pulse Ox O2 Del Method O2 Flow Rate 98.1 F 82 20 123/66 93 L Nasal Cannula 3 08/17/25 10:02 08/17/25 13:00 08/17/25 13:00 08/17/25 13:00 08/17/25 13:00 08/17/25 12:51 08/17/25 12:51 Laboratory Results - last 24 hr 08/17/25 10:05: WBC 8.8, RBC 4.24 L, Hgb 12.9 L, Hct 39.8 L, MCV 93.9, MCH 30.4, MCHC 32.4, RDW 12.0, Plt Count 209, MPV 10.1, Neut % (Auto) 74.7, Lymph % (Auto) 12.6, [place] % (Auto) 8.8, Eos % (Auto) 3.1, Baso % (Auto) 0.2, Neut # (Auto) 6.6, Lymph # (Auto) 1.1, [place] # (Auto) 0.8, Eos # (Auto) 0.3, Baso # (Auto) 0.0, PT 16.7 H, INR 1.55 H, Sodium 147 H, Potassium 4.1, Chloride 102, Carbon Dioxide 33 H, Anion Gap 16.1 H, BUN 31 H, Creatinine 1.40 H, Estimated Creat Clear 77, Estimated GFR 50 L, Est GFR ( Amer) 61, Glucose 123 H, Lactate 1.3, Calcium 8.5, Magnesium 2.3, Total Bilirubin 0.6, AST 35, ALT 29, Alkaline Phosphatase 91, Troponin I 0.02, NT-Pro-B Natriuret Pep 1080 H, Total Protein 7.3, Albumin 4.1, Globulin 3.2, Albumin/Globulin Ratio 1.3, Procalcitonin 0.373 08/17/25 10:10: VBG pH 7.40, VBG pCO2 45.1, VBG pO2 88.9 H, VBG HCO3 27.2, VBG Total CO2 28.6 H, VBG O2 Saturation 96.8 H, VBG Base Excess 2.4 H, VBG Lactic Acid 1.7 08/17/25 10:34: SARS-CoV-2 (PCR) Not detected, Influenza A Untype (PCR) Not detected, Influenza Type B (PCR) Not detected 08/17/25 13:13: Troponin I 0.01 I & O for Last 24 hours: Intake & Output 08/14/25 08/15/25 08/16/25 08/17/25 23:59 23:59 23:59 23:59 Intake Total 400 / 400 Balance 400 / 400 Weight 109.769 kg
--- NOTE | 2025-08-17 14:30 | PC.NURSE ---
Report called to Mar VILLEGAS on the floor @[id number]
--- NOTE | 2025-08-17 14:42 | PC.NURSE ---
arrived to floor from er
--- NOTE | 2025-08-17 14:47 | ECG_ITS ---
APPROVED REPORT Exam: Resting ECG HR:77 bpm ECG Measurements Heart Rate 77 AXES [place] 189 P 64 QRSd 174 QRS 57 QT 444 T 145 QTc 475 Conclusion SINUS RHYTHM LEFT BUNDLE BRANCH BLOCK [120+ ms QRS DURATION, 80+ ms Q/S IN V1/V2, 85+ ms R IN I/aVL/V5/V6] ABNORMAL ECG UNCONFIRMED REPORT Electronically signed by : Pablo Potter MD 08/19/2025 08:33:01
--- NOTE | 2025-08-17 15:59 | P.HP_ITS ---
<Statement entered by Alfredo Pina MD - 08/18/25 15:37> Agree with plan of care as outlined by the [facility]. History of Present Illness *Admission Date: 08/17/25 *Reason for visit:: Shortness of breath *History of present illness: Mr. Poon is a 70-year-old male who presented to the emergency department today with productive cough, chills, chest pain, dyspnea with exertion for a few weeks. He states that he has increased lower extremity edema bilaterally, and is unable to lie flat when sleeping due to his shortness of breath. Patient states that he used to take diuretics at home but has been off of them for approximately 2 months. He does deny nausea, abdominal pain, vomiting or diarrhea, dysuria. He has a primary medical history of HFrEF, LVEF of 50% in January 2025 (was 30% in October 2024), former smoker greater than 30 years, COPD baseline 3 L O2, WISAM, obesity, A-fib, HTN, HDL, CAD, GERD, neuropathy. He is currently on DAPT therapy and Coumadin. [facility] Disclaimer: The information contained in this section may have been updated after the patient was seen, as this information can be updated by other users. Medical History (Updated 08/18/25 @ 11:13 by India Koo MD) Acute exacerbation of chronic obstructive pulmonary disease Pneumonia Severe sepsis Right lower lobe pneumonia Elevated troponin Acute hypoxemic respiratory failure Hypoxemia Wheezing Abnormal brain MRI Shortness of breath Elevated blood pressure reading Tremor CPAP (continuous positive airway pressure) dependence Sleep apnea Chronic hypoxemic respiratory failure Dyspnea on exertion Abnormal screening CT of chest Screening for lung cancer Encounter for screening for malignant neoplasm of lung in current smoker with 30 pack year history or greater Dyspnea on exertion COPD mixed type History of smoking 30 or more pack years COPD (chronic obstructive pulmonary disease) Surgical History H/O cardiac catheterization History of appendectomy Previous back surgery Family History Other No significant family history Social History (Updated 08/17/25 @ 14:57 by Seble Gamboa RN) Smoking Status: Former smoker alcohol intake: former substance use type: denies use current occupational status: disabled Travel in the last 8 weeks?: None housing: apartment marital status: legally Other Medical History Have you received the Flu Vaccine for this season: No Have you received the Pneumonia Vaccine: No Review of Systems Constitutional Constitutional: Reports fatigue and Reports weakness ENT Ears, Nose, Mouth, and Throat: Denies dizziness *Cardiovascular Cardiovascular: Denies chest pain, Reports dyspnea and Reports leg edema *Respiratory Respiratory: Reports cough, Reports dyspnea and Reports wheezing *Gastrointestinal Gastrointestinal: Denies abdominal pain, Denies diarrhea and Denies vomiting *Genitourinary Genitourinary: Denies dysuria *Neurologic Neurologic: Denies abnormal speech, Denies confusion, Denies dizziness and Reports weakness Psychiatric Psychiatric: Denies confusion Endocrine Endocrine: Reports fatigue Allergic/Immunologic Allergic/Immunologic: Reports wheezing Meds Home Medications and Allergies Home Medications ?Medication ?Instructions ?Recorded ?Confirmed ?Type albuterol sulfate 90 mcg/actuation 2 inh inhalation QI DP PRN 10/31/24 08/17/25 History aerosol inhaler shortness of breath or wheez ing diclofenac sodium 75 mg 75 mg PO BID 10/31/24 History tablet,delayed release atorvastatin 40 mg tablet 40 mg PO DAILY 30 days #90 t abs 11/12/24 08/17/25 Rx clopidogrel 75 mg tablet 75 mg PO DAILY 30 days #90 t abs 11/12/24 08/17/25 Rx digoxin 125 mcg (0.125 mg) tablet 125 mcg PO DAILY 30 days #90 tabs 11/12/24 08/17/25 Rx gabapentin 300 mg capsule 300 mg PO BID 02/27/2508/17 History lisinopril 20 mg tablet 20 mg PO DAILY #90 tabs 06/0408/17/25 Rx metoprolol succinate 100 mg 100 mg PO BID 08/17/2505/04 History tablet,extended release 24 hr pantoprazole 40 mg tablet,delayed 40 mg PO DAILY 08/1708/17/25 History release warfarin 5 mg tablet 5 mg PO SUTUWETHFRSA 5 08/17/25 History warfarin 5 mg tablet 7.5 mg PO MO 08/17/25 History furosemide 20 mg tablet 40 mg (2 x 20 mg) PO DAILY 3 0 days 08/18/25 08/17/25 Rx #60 tabs levofloxacin 750 mg tablet 750 mg PO Q24H #7 tabs 06/04 Rx spironolactone 25 mg tablet 25 mg PO DAILY 30 days #30 tabs 08/18/25 Rx New Prescriptions to Start Prescriptions: levofloxacin Krupa Schwartz spironolactone Krupa Schwartz Allergies Allergy/AdvReac Type Severity Reaction Status Date / Time No Known Allergies Allergy Verified 06/17/25 13:18 Exam Data for Last 24 hours Vital signs and Labs for Last 24 Hours: Temp Pulse Resp BP Pulse Ox O2 Del Method O2 Flow Rate 97.8 F 80 20 141/68 H 94 L Nasal Cannula 3 08/17/25 14:44 08/17/25 14:44 08/17/25 14:44 08/17/25 14:44 08/17/25 14:44 08/17/25 15:09 08/17/25 15:09 Laboratory Results - last 24 hr 08/17/25 10:05: WBC 8.8, RBC 4.24 L, Hgb 12.9 L, Hct 39.8 L, MCV 93.9, MCH 30.4, MCHC 32.4, RDW 12.0, Plt Count 209, MPV 10.1, Neut % (Auto) 74.7, Lymph % (Auto) 12.6, [place] % (Auto) 8.8, Eos % (Auto) 3.1, Baso % (Auto) 0.2, Neut # (Auto) 6.6, Lymph # (Auto) 1.1, [place] # (Auto) 0.8, Eos # (Auto) 0.3, Baso # (Auto) 0.0, PT 16.7 H, INR 1.55 H, Sodium 147 H, Potassium 4.1, Chloride 102, Carbon Dioxide 33 H, Anion Gap 16.1 H, BUN 31 H, Creatinine 1.40 H, Estimated Creat Clear 77, Estimated GFR 50 L, Est GFR ( Amer) 61, Glucose 123 H, Lactate 1.3, Calcium 8.5, Magnesium 2.3, Total Bilirubin 0.6, AST 35, ALT 29, Alkaline Phosphatase 91, Troponin I 0.02, NT-Pro-B Natriuret Pep 1080 H, Total Protein 7.3, Albumin 4.1, Globulin 3.2, Albumin/Globulin Ratio 1.3, Procalcitonin 0.373 08/17/25 10:10: VBG pH 7.40, VBG pCO2 45.1, VBG pO2 88.9 H, VBG HCO3 27.2, VBG Total CO2 28.6 H, VBG O2 Saturation 96.8 H, VBG Base Excess 2.4 H, VBG Lactic Acid 1.7 08/17/25 10:34: SARS-CoV-2 (PCR) Not detected, Influenza A Untype (PCR) Not detected, Influenza Type B (PCR) Not detected 08/17/25 13:13: Troponin I 0.01 I & O for Last 24 hours: Intake & Output 08/14/25 08/15/25 08/16/25 08/17/25 23:59 23:59 23:59 23:59 Intake Total 400 / 400 Balance 400 / 400 Weight 109.769 kg Constitutional Constitutional: no acute distress, obese, chronically ill appearing and cooperative *Routine HEENT Exam Head: Present normocephalic Eye: Present EOMI and PERRL ENT: Present mucous membranes moist *Routine Neck Exam Neck: Present supple; Absent lymphadenopathy *Routine Respiratory Exam Respiratory: Present accessory muscle use, prolonged expiratory phase, wheezes (diffuse), crackles (Rt lower lung field) and diminished air movement; Absent rhonchi *Routine Cardiovascular Exam Cardiovascular: Present RRR, Normal S1 and Normal S2; Absent murmur *Routine Abdominal Exam Abdominal: Present soft, normoactive bowel sounds and distended; Absent tenderness *Routine Rectal Exam Rectal:: deferred *Routine Genitalia Exam Genitalia:: deferred *Routine Extremities Exam Extremities: Present edema (2+ bilateral lower extremities); Absent cyanosis, clubbing or calf tenderness *Routine Skin Exam Skin: Present intact, dry and warm; Absent rash *Routine Neurological Exam Neurological: Present alert, oriented X3 and moving all extremities; Absent altered mental status Assessment and Plan *Assessment and plan (1) CAP (community acquired pneumonia): Status: Acute Category: Medical Code(s): J18.9 - Pneumonia, unspecified organism (2) CHF exacerbation: Status: Acute Category: Medical Code(s): I50.9 - Heart failure, unspecified (3) Dyspnea: Status: Acute Category: Medical Code(s): R06.00 - Dyspnea, unspecified (4) Acute on chronic hypoxic respiratory failure: Status: Acute Category: Medical Code(s): J96.21 - Acute and chronic respiratory failure with hypoxia (5) A-fib: Status: Acute Qualifiers: Atrial fibrillation type: unspecified Qualified Code(s): I48.91 - Unspecified atrial fibrillation Category: Medical Code(s): I48.91 - Unspecified atrial fibrillation (6) HTN (hypertension): Status: Acute Qualifiers: Hypertension type: primary hypertension Qualified Code(s): I10 - Essential (primary) hypertension Category: Medical Code(s): I10 - Essential (primary) hypertension (7) Hyperlipidemia: Status: Acute Qualifiers: Hyperlipidemia type: mixed hyperlipidemia Qualified Code(s): E78.2 - Mixed hyperlipidemia Category: Medical Code(s): E78.5 - Hyperlipidemia, unspecified (8) CAD (coronary artery disease): Status: Acute Category: Medical Code(s): I25.10 - Atherosclerotic heart disease of [place] coronary artery without angina pectoris Plan Mr. Poon is a 70-year-old male who presented to the emergency department today with productive cough, chills, chest pain, dyspnea with exertion for a few weeks. He states that he has increased lower extremity edema bilaterally, and is unable to lie flat when sleeping due to his shortness of breath. Patient states that he used to take diuretics at home but has been off of them for approximately 2 months. He does deny nausea, abdominal pain, vomiting or diarrhea, dysuria. He has a primary medical history of HFrEF, LVEF of 50% in January 2025 (was 30% in October 2024), former smoker greater than 30 years, COPD baseline 3 L O2, WISAM, obesity, A-fib, HTN, HLD, CAD, GERD, neuropathy. He is currently on Plavix 75 mg daily and Coumadin. Workup in the emergency department was significant for right lower lobe pneumonia and CHF exacerbation with elevated BNP. Hospital medicine was con sulted for admission, I agreed to admit the patient. Plan of care as follows: #Community-acquired pneumonia #CHF exacerbation #Acute on chronic hypoxic respiratory failure #Dyspnea ? Patient was given methylprednisolone 125 mg IV, magnesium 2 g IV, continuous DuoNeb, Lasix 40 mg, Zithromax 500 mg IV, Rocephin 2 g IV in the ED. Patient maintaining O2 greater than 90% on his baseline 3 L nasal cannula, lungs positive for wheezing and rhonchi. Patient does not appear dyspneic. Will continue Zithromax 500 mg IV daily and Rocephin 2 g IV daily. DuoNebs ordered every 6 hours as needed. Lasix 40 mg twice daily L. Monitoring strict I's and O's. Pulmonology consulted for further recommendations. Patient is well established with pulmonology in the outpatient setting. ? Patient's lab work notable for sodium 147, BUN 31, creatinine 1.4 BNP 1080, normal LFTs, no leukocytosis. Pro-Ervin 0.373. #HTN/HLD/A-fib #HFpEF #CAD ?Continued home medication of Lipitor 40 daily, Plavix 75 mg daily, digoxin 125 mcg daily, metoprolol succinate 100 mg twice daily, lisinopril 20 mg daily. Patient is not on complete GDMT management-not currently taking a MRA or SGLT2 inhibitor. From my chart review patient could not afford Farxiga/Jardiance. Will add spironolactone daily. Patient follows with cardiology on a regular basis. Bilateral lower extremity edema, 2+. Patient states he is prescribed L asix 20 mg twice daily, takes it intermittently. Will start Lasix 40 mg twice daily L during admission. Full code VTE?warfarin Ambulate as tolerated Regular diet
[2025-08-17 17:00] LABS: Troponin I < 0.01 ng/ml (0.00-0.034)
[2025-08-17] MEDS: GABAPENTIN 300MG CAPSULE 300 MG PO (20:17)
[2025-08-17] MEDS: METOPROLOL SUCCINATE XL 100MG TABLET 100 MG PO (20:17)
[2025-08-18] VITALS (7 sets, daily range): BP systolic 118–133; BP diastolic 57–73; PULSE 50–80; RESP 16–20; TEMP 36.3–37.1; O2SAT 90–96; BMI 34.9
--- NOTE | 2025-08-18 05:06 | ECG_ITS ---
APPROVED REPORT Exam: Resting ECG HR:51 bpm ECG Measurements Heart Rate 51 AXES IL 191 P -40 QRSd 168 QRS 57 QT 456 T 203 QTc 434 Conclusion SINUS BRADYCARDIA LEFT BUNDLE BRANCH BLOCK [120+ ms QRS DURATION, 80+ ms Q/S IN V1/V2, 85+ ms R IN I/aVL/V5/V6] ABNORMAL ECG UNCONFIRMED REPORT Electronically signed by : Pablo Potter MD 08/19/2025 08:32:57
[2025-08-18 06:34] LABS: Hematocrit 37.6 % (42.0-52.0); Hemoglobin 12.2 g/dL (14.1-18.0); Immature Granulocytes % 0.4 %; Mean Corpuscular HGB Conc 32.4 g/dL (31.8-35.4); Mean Corpuscular Hemoglobin 30.7 pg (27.0-31.2); Mean Corpuscular Volume 94.7 fl (80-94); Nucleated Red Blood Cells % 0 %; Platelet Count 242 K/mm3 (142-424); Red Blood Count 3.97 M/mm3 (4.60-6.20); Red Cell Distribution Width-SD 40.4 fL; White Blood Count 12.0 K/mm3 (4.8-10.8)
[2025-08-18 06:53] LABS: Albumin Level 4.1 g/dl (3.5-5.0); Chloride 103 mmol/L (98-107); Potassium 4.8 mmoL/L (3.5-5.1); Sodium 144 mmol/L (136-145)
[2025-08-18 06:55] LABS: Blood Urea Nitrogen 29 mg/dl (9-20); Creatinine Clearance Estimated 98 mL/min (50-200); Creatinine,Serum 1.10 mg/dl (0.66-1.25); Estimated Glomerular Filt Rate 66 ml/min (>60); GFR (African American) 80 ML/MIN (>60)
[2025-08-18 06:56] LABS: Alanine Aminotransferase 26 U/L (12-78); Albumin/Globulin Ratio 1.3 (1.1-1.8); Alkaline Phosphatase 88 U/L (38-126); Anion Gap 13.8 mEq/L (5-15); Aspartate Amino Transferase 29 U/L (17-59); Bilirubin,Total 0.3 mg/dl (0.2-1.3); Calcium 8.2 mg/dl (8.4-10.2); Carbon Dioxide 32 mmol/L (22.0-30.0); Globulin 3.1 g/dL (1.3-3.2); Glucose 160 mg/dl (74-100); Total Protein,Serum 7.2 g/dl (6.3-8.2)
[2025-08-18] MEDS: LISINOPRIL 20MG TABLET 20 MG PO (08:42)
[2025-08-18] MEDS: METOPROLOL SUCCINATE XL 100MG TABLET 100 MG PO (08:42)
[2025-08-18] MEDS: PANTOPRAZOLE 40MG TABLET 40 MG PO (08:42)
[2025-08-18] MEDS: CLOPIDOGREL 75MG TAB 75 MG PO (08:42)
[2025-08-18] MEDS: GABAPENTIN 300MG CAPSULE 300 MG PO (08:42)
[2025-08-18] MEDS: FUROSEMIDE 40MG/4ML VIAL 40 MG IV (08:42)
[2025-08-18] MEDS: DIGOXIN 0.125MG TABLET 125 MCG PO (08:42)
[2025-08-18] MEDS: SPIRONOLACTONE 25MG TABLET 25 MG PO (08:43)
--- NOTE | 2025-08-18 08:49 | HMH.PHAAMS2 ---
- Antimicrobial Stewardship Review culture & sensitivity review Stewardship interventions: culture & sensitivity review, notify provider Comments: PATIENT ON SPUTUM AND BLOOD CXS PENDING, ON ROCEPHIN EMPIRICALLY FOR PNEUMONIA. ASCENCION VAZQUEZ HAD TO START ROCEPHIN/AZITHROMYCIN FOR PNEUMONIA. CALLED DR GERAMIN WHO SAID HE WOULD CLARIFY WITH [facility] WHAT ABX SHE WANTS ON THIS PATIENT. WBC ELEVATED TODAY AT 12.0 K/mm3, AFEBRILE OVER 24 HR.
--- NOTE | 2025-08-18 09:34 | PC.NURSE ---
walk test completed- pt O2 on baseline 3L NC 95-96%
--- NOTE | 2025-08-18 09:52 | EXP.PULM.CON ---
History of Present Illness History of present illness: Mr. Poon is a 70-year-old male greater than [id number] smoking history prior smoker history of COPD chronic hypoxic respiratory failure, right lower lobe bronchiectasis and pneumonia presented to the ER with worsening respiratory distress productive cough chills chest pain dyspnea for the last few weeks and pulmonary was called for further evaluation and management. Patient also admits worsening bilateral lower extremity swelling and worsening orthopnea. [facility] Disclaimer: The information contained in this section may have been updated after the patient was seen, as this information can be updated by other users. Medical History (Updated 08/18/25 @ 11:13 by India Koo MD) Acute exacerbation of chronic obstructive pulmonary disease Pneumonia Severe sepsis Right lower lobe pneumonia Elevated troponin Acute hypoxemic respiratory failure Hypoxemia Wheezing Abnormal brain MRI Shortness of breath Elevated blood pressure reading Tremor CPAP (continuous positive airway pressure) dependence Sleep apnea Chronic hypoxemic respiratory failure Dyspnea on exertion Abnormal screening CT of chest Screening for lung cancer Encounter for screening for malignant neoplasm of lung in current smoker with 30 pack year history or greater Dyspnea on exertion COPD mixed type History of smoking 30 or more pack years COPD (chronic obstructive pulmonary disease) Surgical History H/O cardiac catheterization History of appendectomy Previous back surgery Family History Other No significant family history Social History (Updated 08/17/25 @ 14:57 by Seble Gamboa RN) Smoking Status: Former smoker alcohol intake: former substance use type: denies use current occupational status: disabled Travel in the last 8 weeks?: None housing: apartment marital status: legally Have you lived/traveled outside [place] in past 30 days?: No Contact w/someone who lives/traveled outside [place] past 30 days?: No Exposure to someone with infectious disease in past 14 days?: No Do you have a fever (greater than 100.4 F or 38 C)?: No Have you tested positive for COVID-19?: No Exposed to someone with COVID-19 in past 14 days?: No Do you have a sore throat?: No Do you have a cough?: No Do you have any weakness?: No Are you experiencing any nausea/vomitting?: No Do you have any diarrhea?: No Are you experiencing any unusual bleeding?: No Do you have any muscle aches/pain?: No Do you have any abdominal pain?: No Are you experiencing loss of taste or smell?: No Review of Systems Constitutional Constitutional: Reports anorexia, Reports body ache(s) and Reports fatigue Eyes Eyes: Denies eye discharge, Denies dry eyes, Denies irritation and Denies itchy eyes ENT Ears, Nose, Mouth, and Throat: Denies epistaxis, Denies facial pain, Denies lip swelling and Denies throat swelling *Cardiovascular Cardiovascular: Reports dyspnea, Reports dyspnea on exertion, Reports leg edema and Reports orthopnea *Respiratory Respiratory: Denies change in phlegm color, Reports chest congestion, Reports cough, Reports dyspnea, Reports dyspnea on exertion, Reports excessive phlegm production, Denies hemoptysis, Denies pain on inspiration, Denies pain with cough and Reports wheezing *Gastrointestinal Gastrointestinal: Denies abdominal pain, Denies belching and Denies cramping *Musculoskeletal Musculoskeletal: Reports back pain, Reports myalgias and Reports other (No small joint swelling or Pain) Psychiatric Psychiatric: Denies homicidal ideation and Denies suicidal ideation Endocrine Endocrine: Reports fatigue and Denies heat intolerance Hematologic/Lymphatic Hematologic/Lymphatic: Denies easy bleeding and Denies lymphadenopathy Allergic/Immunologic Allergic/Immunologic: Denies itchy eyes, Denies lip swelling, Denies throat swelling and Reports wheezing Pulmonology Exam Inpatient Vital signs and Labs for Last 24 Hours: Temp Pulse Resp BP Pulse Ox O2 Del Method O2 Flow Rate 98.7 F 69 16 118/57 L 90 L Room Air 3 08/18/25 08:00 08/18/25 08:00 08/18/25 08:00 08/18/25 08:00 08/18/25 09:34 08/18/25 09:34 08/18/25 09:33 Laboratory Results - last 24 hr 08/17/25 10:05: WBC 8.8, RBC 4.24 L, Hgb 12.9 L, Hct 39.8 L, MCV 93.9, MCH 30.4, MCHC 32.4, RDW 12.0, Plt Count 209, MPV 10.1, Neut % (Auto) 74.7, Lymph % (Auto) 12.6, [place] % (Auto) 8.8, Eos % (Auto) 3.1, Baso % (Auto) 0.2, Neut # (Auto) 6.6, Lymph # (Auto) 1.1, [place] # (Auto) 0.8, Eos # (Auto) 0.3, Baso # (Auto) 0.0, PT 16.7 H, INR 1.55 H, Sodium 147 H, Potassium 4.1, Chloride 102, Carbon Dioxide 33 H, Anion Gap 16.1 H, BUN 31 H, Creatinine 1.40 H, Estimated Creat Clear 77, Estimated GFR 50 L, Est GFR ( Amer) 61, Glucose 123 H, Lactate 1.3, Calcium 8.5, Magnesium 2.3, Total Bilirubin 0.6, AST 35, ALT 29, Alkaline Phosphatase 91, Troponin I 0.02, NT-Pro-B Natriuret Pep 1080 H, Total Protein 7.3, Albumin 4.1, Globulin 3.2, Albumin/Globulin Ratio 1.3, Procalcitonin 0.373 08/17/25 10:10: VBG pH 7.40, VBG pCO2 45.1, VBG pO2 88.9 H, VBG HCO3 27.2, VBG Total CO2 28.6 H, VBG O2 Saturation 96.8 H, VBG Base Excess 2.4 H, VBG Lactic Acid 1.7 08/17/25 10:34: SARS-CoV-2 (PCR) Not detected, Influenza A Untype (PCR) Not detected, Influenza Type B (PCR) Not detected 08/17/25 13:13: Troponin I 0.01 08/17/25 16:18: Troponin I < 0.01 08/18/25 06:10: WBC 12.0 H D, RBC 3.97 L, Hgb 12.2 L, Hct 37.6 L, MCV 94.7 H, MCH 30.7, MCHC 32.4, RDW 11.9, Plt Count 242, MPV 10.3, Neut % (Auto) 87.0 H, Lymph % (Auto) 9.0 L, [place] % (Auto) 3.4, Eos % (Auto) 0.0 L, Baso % (Auto) 0.2, Neut # (Auto) 10.4 H, Lymph # (Auto) 1.1, [place] # (Auto) 0.4, Eos # (Auto) 0.0, Baso # (Auto) 0.0, Sodium 144, Potassium 4.8, Chloride 103, Carbon Dioxide 32 H, Anion Gap 13.8, BUN 29 H, Creatinine 1.10 D, Estimated Creat Clear 98, Estimated GFR 66, Est GFR ( Amer) 80 D, Glucose 160 H D, Calcium 8.2 L, Total Bilirubin 0.3, AST 29, ALT 26, Alkaline Phosphatase 88, Total Protein 7.2, Albumin 4.1, Globulin 3.1, Albumin/Globulin Ratio 1.3 I & O for Labs for Last 24 Hours: Intake & Output 08/15/25 08/16/25 08/17/25 08/18/25 23:59 23:59 23:59 23:59 Intake Total 1420 / 1420 630 / 630 Output Total 700 / 700 300 / 300 Balance 720 / 720 330 / 330 Weight 242 lb 244 lb 1.6 oz Microbiology Reports for the Last 24 Hours: Microbiology 08/17/25 18:24 Sputum - Expectorated Sputum Gram Stain - Final Constitutional: Present moderate distress Head: Present normocephalic and atraumatic ENT: Present normal exam, normal oropharynx and mucous membranes moist Neck: Present normal inspection and full ROM Respiratory: Present prolonged expiratory phase, respiratory distress, rhonchi, wheezes, crackles and able to speak in complete sentences Cardiac: Present S1/S2, Tachycardia and radial pulses present GI: Present soft and distention; Absent tenderness or guarding Skin: Present intact; Absent cyanosis or jaundice Neuro: Present alert, awake and oriented x 3 Extremities: Present normal inspection and edema; Absent clubbing or cyanosis Psychiatric: Present normal affect and cooperative Meds Home Medications and Allergies Home Medications ?Medication ?Instructions ?Recorded ?Confirmed ?Type albuterol sulfate 90 mcg/actuation 2 inh inhalation QIDP PRN 10/31/24 08/17/25 History aerosol inhaler shortness of breath or wheezing diclofenac sodium 75 mg 75 mg PO BID 10/31/24 08/17/25 History tablet,delayed release atorvastatin 40 mg tablet 40 mg PO DAILY 30 days #90 tabs 11/12/24 08/17/25 Rx clopidogrel 75 mg tablet 75 mg PO DAILY 30 days #90 tabs 11/12/24 08/17/25 Rx digoxin 125 mcg (0.125 mg) tablet 125 mcg PO DAILY 30 days #90 tabs 11/12/24 08/17/25 Rx gabapentin 300 mg capsule 300 mg PO BID 02/27/25 08/17/25 History lisinopril 20 mg tablet 20 mg PO DAILY #90 tabs 05/19/25 08/17/25 Rx furosemide 20 mg tablet 20 mg PO BID 08/17/25 08/17/25 History metoprolol succinate 100 mg 100 mg PO BID 08/17/25 08/17/25 History tablet,extended release 24 hr pantoprazole 40 mg tablet,delayed 40 mg PO DAILY 08/17/25 08/17/25 History release warfarin 5 mg tablet 5 mg PO SUTUWETHFRSA 08/17/25 08/17/25 History warfarin 5 mg tablet 7.5 mg PO MO 08/17/25 08/17/25 History New Prescriptions to Start Prescriptions: Allergies Allergy/AdvReac Type Severity Reaction Status Date / Time No Known Allergies Allergy Verified 06/17/25 13:18 Results Laboratory Findings 08/18/25 06:10 08/18/25 06:10 PT/INR, D-dimer PT 16.7 seconds (10.1-12.5) H 08/17/25 10:05 INR 1.55 (0.9-1.1) H 08/17/25 10:05 Abnormal lab findings: Abnormal Labs 08/17/25 08/17/25 08/18/25 10:05 10:10 06:10 WBC 12.0 H D RBC 4.24 L 3.97 L Hgb 12.9 L 12.2 L Hct 39.8 L 37.6 L MCV 94.7 H Neut % (Auto) 87.0 H Lymph % (Auto) 9.0 L Eos % (Auto) 0.0 L Neut # (Auto) 10.4 H PT 16.7 H INR 1.55 H VBG pO2 88.9 H VBG Total CO2 28.6 H VBG O2 Saturation 96.8 H VBG Base Excess 2.4 H Sodium 147 H Carbon Dioxide 33 H 32 H Anion Gap 16.1 H BUN 31 H 29 H Creatinine 1.40 H Estimated GFR 50 L Glucose 123 H 160 H D Calcium 8.2 L NT-Pro-B Natriuret Pep 1080 H Assessment and Plan *Assessment and plan (1) Pneumonia: Status: Acute Qualifiers: Pneumonia type: due to unspecified organism Laterality: right Lung location: lower lobe of lung Qualified Code(s): J18.9 - Pneumonia, unspecified organism Category: Medical Code(s): J18.9 - Pneumonia, unspecified organism (2) Acute on chronic hypoxic respiratory failure: Status: Acute Category: Medical Code(s): J96.21 - Acute and chronic respiratory failure with hypoxia Plan Mr. Poon is a 70-year-old male greater than [id number] smoking history prior smoker history of COPD chronic hypoxic respiratory failure, right lower lobe bronchiectasis and pneumonia presented to the ER with worsening respiratory distress productive cough chills chest pain dyspnea for the last few weeks and pulmonary was called for further evaluation and management. Patient also admits worsening bilateral lower extremity swelling and worsening orthopnea. Afebrile. Hemodynamically stable. Mild neutrophilic predominant leukocytosis. Blood gas upon admission did not show any evidence of hypercarbic or hypoxic respiratory failure. COVID-19 and flu PCR panel negative. Prior sputum cultures positive for stenotrophomonas sensitive to Bactrim. Elevated BNP Chest x-ray upon admission concerning right lower lobe airspace disease On examination bilateral diffuse wheezing noted on auscultation lung with rhonchorous breath sounds. 2+ lower extremity edema Plan: Continue oxygen supplementation to maintain O2 saturation goal of 90% and above, wean to 2 L this morning. DuoNebs every 4 hours along with Pulmicort every 12 scheduled Prednisone 40 mg daily x 5 days Change antibiotics to Bactrim DS twice daily pending final sputum culture results # Thank you for involving pulmonary in this patient care. Will continue to follow.
[2025-08-18] MEDS: IPRATROPIUM/ALBUTEROL 3 ML NEB IH (10:51)
[2025-08-18] MEDS: SODIUM CHLORIDE 3% 15ML NEB 3 ML IH (10:52)
--- NOTE | 2025-08-18 12:04 | P.DS_ITS ---
<Statement entered by Yg Licea MD - 08/18/25 18:54> Rounded on patient after nurse practitioner. Personally examined and interviewed patient. Agree with exam findings and care plan as documented. General Admission date:: 08/17/25 Discharge date: 08/18/25 HPI HPI HPI: Mr. Poon is a 70-year-old male who presented to the emergency department today with productive cough, chills, chest pain, dyspnea with exertion for a few weeks. He states that he has increased lower extremity edema bilaterally, and is unable to lie flat when sleeping due to his shortness of breath. Patient states that he used to take diuretics at home but has been off of them for approximately 2 months. He does deny nausea, abdominal pain, vomiting or diarrhea, dysuria. He has a primary medical history of HFrEF, LVEF of 50% in January 2025 (was 30% in October 2024), former smoker greater than 30 years, COPD baseline 3 L O2, WISAM, obesity, A-fib, HTN, HDL, CAD, GERD, neuropathy. He is currently on DAPT therapy and Coumadin. Hospital Course Hospital Course Hospital Course: Mr. Poon is a 70-year-old male who presented to the emergency department yesterday with cough, chills, dyspnea over the past couple weeks. Workup in the emergency department significant for right lower lobe pneumonia, COPD exacerbation, and HFpEF exacerbation. Hospital medicine was consulted for admission, I agreed to meet the patient. Hospital course was as follows: #Chronic hypoxemic respiratory failure with hypercapnia #Right lower lobe pneumonia #COPD exacerbation ?Patient was started on methylprednisolone 125 mg IV, magnesium 2 g IV, continuous DuoNeb, Lasix 40 mg, Zithromax 500 mg IV, Rocephin 2 g IV in the ED. Patient maintaining O2 greater than 90% on his baseline 3 L nasal cannula, lungs positive for wheezing and rhonchi. Patient does not appear dyspneic. Initiated on Zithromax 500 mg IV daily and Rocephin 2 g IV daily. DuoNebs ordered every 6 hours as needed. Lasix 40 mg twice daily L. ? Pulmonology was consulted, recommendations initially for Bactrim DS twice bonnie ly due to previous sputum culture that showed stenotrophomonas in October 2024. Patient takes lisinopril and is also on warfarin and spironolactone both of which can affect kidney function when taken with Bactrim. Discussed this with pulm who are agreeable to switch antibiotics to Levaquin 750 mg daily x 7 days. Will continue to follow current sputum culture for results, blood cultures show no growth after 24 hours. ? Reassessment day of discharge patient is well-appearing, vital signs within normal limits. Patient endorses intermittent cough, lungs diminished but clear. Patient at baseline wears 3 L NC, walk test with 3 L patient maintain O2 saturation at 95%. ? Lab work on admission notable for sodium 147, BUN 31, creatinine 1.4 BNP 1080, normal LFTs, no leukocytosis. Pro-Ervin 0.373. Day of discharge sodium 144, creatinine improved to 1.10. WBC 12.0, likely in the setting of steroid use. #A-fib #HTN/HLD/CAD #HFpEF ?Continued home medication of Lipitor 40 daily, Plavix 75 mg daily, digoxin 125 mcg daily, metoprolol succinate 100 mg twice daily, lisinopril 20 mg daily. Patient is not on complete GDMT management-not currently taking a MRA or SGLT2 inhibitor. From my chart review patient could not afford [facility]. Will add spironolactone daily. Patient follows with cardiology on a regular basis. Bilateral lower extremity edema 2+ on admission, trace edema day of discharge. Patient states he is prescribed Lasix 20 mg twice daily, takes it intermittently. Discussed taking Lasix 40 mg once daily in the morning and continuing spironolactone 25 mg daily. Patient should have follow-up with PCP for BMP check for kidney function. Total time spent on discharge 33 minutes in counseling, documentation, chart review, and direct care with patient. Exam Data for Last 24 hours Vital signs and Labs for Last 24 Hours: Temp Pulse Resp BP Pulse Ox O2 Del Method O2 Flow Rate 98.7 F 70 18 118/57 L 90 L Room Air 3 08/18/25 08:00 08/18/25 10:53 08/18/25 10:53 08/18/25 08:00 08/18/25 09:34 08/18/25 11:00 08/18/25 09:33 Laboratory Results - last 24 hr 08/17/25 13:13: Troponin I 0.01 08/17/25 16:18: Troponin I < 0.01 08/18/25 06:10: WBC 12.0 H D, RBC 3.97 L, Hgb 12.2 L, Hct 37.6 L, MCV 94.7 H, MCH 30.7, MCHC 32.4, RDW 11.9, Plt Count 242, MPV 10.3, Neut % (Auto) 87.0 H, Lymph % (Auto) 9.0 L, [place] % (Auto) 3.4, Eos % (Auto) 0.0 L, Baso % (Auto) 0.2, Neut # (Auto) 10.4 H, Lymph # (Auto) 1.1, [place] # (Auto) 0.4, Eos # (Auto) 0.0, Baso # (Auto) 0.0, Sodium 144, Potassium 4.8, Chloride 103, Carbon Dioxide 32 H, Anion Gap 13.8, BUN 29 H, Creatinine 1.10 D, Estimated Creat Clear 98, Estimated GFR 66, Est GFR ( Amer) 80 D, Glucose 160 H D, Calcium 8.2 L, Total Bilirubin 0.3, AST 29, ALT 26, Alkaline Phosphatase 88, Total Protein 7.2, Albumin 4.1, Globulin 3.1, Albumin/Globulin Ratio 1.3 I & O for Last 24 hours: Intake & Output 08/15/25 08/16/25 08/17/25 08/18/25 23:59 23:59 23:59 23:59 Intake Total 1420 / 1420 630 / 630 Output Total 700 / 700 600 / 600 Balance 720 / 720 30 / 30 Weight 109.769 kg 110.722 kg Microbiology Reports for the Last 24 Hours: Microbiology 08/17/25 11:00 Blood Blood Culture - Preliminary NO GROWTH AFTER 24 HOURS 08/17/25 10:05 Blood Blood Culture - Preliminary NO GROWTH AFTER 24 HOURS 08/17/25 18:24 Sputum - Expectorated Sputum Gram Stain - Final Constitutional Constitutional: no acute distress and obese *Routine HEENT Exam Head: Present normocephalic Eye: Present EOMI and PERRL ENT: Present mucous membranes moist *Routine Neck Exam Neck: Present supple; Absent lymphadenopathy *Routine Respiratory Exam Respiratory: Present CTA bilaterally, prolonged expiratory phase and normal respiratory effort; Absent wheezes or crackles *Routine Cardiovascular Exam Cardiovascular: Present RRR *Routine Abdominal Exam Abdominal: Present soft, normoactive bowel sounds and obese; Absent tenderness *Routine Rectal Exam Patient deferred: visual exam *Routine Exam Patient deferred: penile exam *Routine Extremities Exam Extremities: Present edema (Trace edema noted bilateral lower extremities); Absent cyanosis, clubbing or calf tenderness *Routine Skin Exam Skin: Present intact, dry and warm; Absent rash *Routine Neurological Exam Neurological: Present alert, oriented X3, vision grossly intact, hearing grossly intact and normal speech Results Data Completed and Pending Labs on day of discharge: Labs from last 24 hours 08/18/25 08/17/25 08/17/25 06:10 16:18 13:13 WBC 12.0 H D RBC 3.97 L Hgb 12.2 L Hct 37.6 L MCV 94.7 H MCH 30.7 MCHC 32.4 RDW 11.9 Plt Count 242 MPV 10.3 Neut % (Auto) 87.0 H Lymph % (Auto) 9.0 L [place] % (Auto) 3.4 Eos % (Auto) 0.0 L Baso % (Auto) 0.2 Neut # (Auto) 10.4 H Lymph # (Auto) 1.1 [place] # (Auto) 0.4 Eos # (Auto) 0.0 Baso # (Auto) 0.0 Sodium 144 Potassium 4.8 Chloride 103 Carbon Dioxide 32 H Anion Gap 13.8 BUN 29 H Creatinine 1.10 D Estimated Creat Clear 98 Estimated GFR 66 Est GFR ( Amer) 80 D Glucose 160 H D Calcium 8.2 L Total Bilirubin 0.3 AST 29 ALT 26 Alkaline Phosphatase 88 Troponin I < 0.01 0.01 Total Protein 7.2 Albumin 4.1 Globulin 3.1 Albumin/Globulin Ratio 1.3 Preliminary micro results at discharge 08/17/25 11:00 Blood Culture - Preliminary Blood NO GROWTH AFTER 24 HOURS 08/17/25 10:05 Blood Culture - Preliminary Blood NO GROWTH AFTER 24 HOURS DS: Diagnosis Discharge Diagnosis (1) Pneumonia: Status: Acute Code(s): J18.9 - Pneumonia, unspecified organism Qualifiers: Laterality: right Lung location: lower lobe of lung Pneumonia type: due to unspecified organism Qualified Code(s): J18.9 - Pneumonia, unspecified organism (2) Acute on chronic hypoxic respiratory failure: Status: Acute Code(s): J96.21 - Acute and chronic respiratory failure with hypoxia Meds Home Medications and Allergies Home Medications ?Medication ?Instructions ?Recorded ?Confirmed ?Type albuterol sulfate 90 mcg/actuation 2 inh inhalation QI DP PRN 10/31/24 08/17/25 History aerosol inhaler shortness of breath or wheez ing diclofenac sodium 75 mg 75 mg PO BID 10/31/24 History tablet,delayed release atorvastatin 40 mg tablet 40 mg PO DAILY 30 days #90 t abs 11/12/24 08/17/25 Rx clopidogrel 75 mg tablet 75 mg PO DAILY 30 days #90 t abs 11/12/24 08/17/25 Rx digoxin 125 mcg (0.125 mg) tablet 125 mcg PO DAILY 30 days #90 tabs 11/12/24 08/17/25 Rx gabapentin 300 mg capsule 300 mg PO BID 02/27/2508/17 History lisinopril 20 mg tablet 20 mg PO DAILY #90 tabs 06/0408/17/25 Rx metoprolol succinate 100 mg 100 mg PO BID 08/17/2505/04 History tablet,extended release 24 hr pantoprazole 40 mg tablet,delayed 40 mg PO DAILY 08/1708/17/25 History release warfarin 5 mg tablet 5 mg PO SUTUWETHFRSA 5 08/17/25 History warfarin 5 mg tablet 7.5 mg PO MO 08/17/25 History furosemide 20 mg tablet 40 mg (2 x 20 mg) PO DAILY 3 0 days 08/18/25 08/17/25 Rx #60 tabs levofloxacin 750 mg tablet 750 mg PO Q24H #7 tabs 06/04 Rx spironolactone 25 mg tablet 25 mg PO DAILY 30 days #30 tabs 08/18/25 Rx New Prescriptions to Start Prescriptions: levofloxacin Krupa Schwartz spironolactone Krupa Schwartz Allergies Allergy/AdvReac Type Severity Reaction Status Date / Time No Known Allergies Allergy Verified 06/17/25 13:18 Discharge Plan Disposition Patient Disposition: Home, Self-Care Condition: Fair Follow up Plan Follow up with: Sho Lilly APRN [Primary Care Provider, Medical] - 08/26/25 9:45 am India Koo MD [Physician, Pulmonology] - 09/22/25 2:40 pm Prescriptions/Medication Reconciliation: New spironolactone 25 mg Tablet 25 mg PO DAILY 30 Days Qty: 30 0RF levofloxacin 750 mg tablet 750 mg PO Q24H Qty: 7 0RF Continued atorvastatin 40 mg tablet 40 mg PO DAILY 30 Days Qty: 90 3RF clopidogrel 75 mg tablet 75 mg PO DAILY 30 Days Qty: 90 3RF digoxin 125 mcg (0.125 mg) tablet 125 mcg PO DAILY 30 Days Qty: 90 3RF gabapentin 300 mg capsule 300 mg PO BID lisinopril 20 mg tablet 20 mg PO DAILY Qty: 90 3RF pantoprazole 40 mg tablet,delayed release (DR/EC) 40 mg PO DAILY warfarin 5 mg tablet 7.5 mg PO MO Rx Instructions: 7.5mg on sunday, 5mg rest of the week metoprolol succinate 100 mg tablet extended release 24 hr 100 mg PO BID warfarin 5 mg tablet 5 mg PO SUTUWETHFRSA Rx Instructions: 7.5mg on sunday, 5mg rest of the week diclofenac sodium 75 mg tablet,delayed release (DR/EC) 75 mg PO BID albuterol sulfate 90 mcg/actuation HFA aerosol inhaler 2 inh inhalation QIDP PRN (Reason: shortness of breath or wheezing) Changed furosemide 20 mg tablet 40 mg PO DAILY 30 Days Qty: 60 0RF Problem Reconciliation Problems Reviewed?: Yes Patient Discharge Instructions ACTIVITY: Continue current activity DIET: continue same diet Patient Instructions: DI for Respiratory Failure, Stop Light Pneumonia, Stop Light Heart Failure Print Language: [place]ian Providers Primary Care Provider: Sho Lilly Admit Provider: Alfredo Pina Attending Provider: Alfredo Pina
--- NOTE | 2025-08-19 11:49 | SW/DCPLANNER ---
Spoke with patient on the phone. Patient stated that he is doing well. Patient stated that he is aware of his upcoming appointments. Patient stated that he was able to get his medicine delivered to his room. Patient stated that he has no concerns or questions at this time. Jono Dawson
== END 2025-08-18 13:28 | disposition home or self-care (01) ==
LOC: ER 12:21 → 2ND 13:43
PROVIDERS: Admitting Provider Student in an Organized Health Care Education/Training Program; Emergency Provider Emergency Medicine; PCP Nurse Practitioner; Visit Provider Student in an Organized Health Care Education/Training Program
DX: J18.9 Pneumonia, unspecified organism (principal); J96.21 Acute and chronic respiratory failure with hypoxia; I48.91 Unspecified atrial fibrillation; E78.2 Mixed hyperlipidemia; I25.10 Atherosclerotic heart disease of native coronary artery without angina pectoris; J44.9 Chronic obstructive pulmonary disease, unspecified; Z87.891 Personal history of nicotine dependence; Z79.899 Other long term (current) drug therapy; Z79.01 Long term (current) use of anticoagulants; Z79.02 Long term (current) use of antithrombotics/antiplatelets; G47.33 Obstructive sleep apnea (adult) (pediatric); I11.0 Hypertensive heart disease with heart failure; I50.20 Unspecified systolic (congestive) heart failure; E66.9 Obesity, unspecified; Z68.34 Body mass index [BMI] 34.0-34.9, adult; R00.1 Bradycardia, unspecified; I44.7 Left bundle-branch block, unspecified
CPT/HCPCS: 36415; 71045; 80053; 82803; 83605; 83735; 83880; 84145; 84484; 85025; 85610; 87040; 87070; 87205; 87636; 89220; 93005; 94640; 99285; G0378; J0456; J0696; J1938; J2919; J3475; J7050

== ENCOUNTER 2025-08-21 09:10 | Outpatient (CLI) | payer MEDICARE, SELFPAY ==
[2025-08-21 10:06] LABS: PHA INR Fingerstick 1.6 (0.9-1.1)
== END 2025-08-21 10:12 ==
PROVIDERS: PCP Nurse Practitioner; Visit Provider Nurse Practitioner
DX: I48.91 Unspecified atrial fibrillation (principal); Z79.01 Long term (current) use of anticoagulants
CPT/HCPCS: 85610; 99211; G0463